=== PATIENT | male | born 1975 | race Caucasian/White ===

== ENCOUNTER 2021-01-01 12:09 | Emergency (ER) | payer MEDICAID, SELFPAY ==
[2021-01-01 12:20] VITALS: BP 170/104; PULSE 60; RESP 19; TEMP 36.7; O2SAT 98; BMI 42.5
--- NOTE | 2021-01-01 12:57 | HMH.EDUTC ---
[facility] [place] Clinical Impression: Exposure to COVID-19 virus, Upper respiratory infection, viral Disposition: Home, Self-Care Condition on Discharge: Good Instructions: DI for COVID-19 (Suspected or Confirmed ), How to Care for Someone with COVID-19, Preventing the Spread of Coronavirus Discharge Instructions Additional Instructions: No sign of a bacterial infection. Likely viral. Viruses can take 7-14 days to run their course. Nasal saline and bulb syringe or nose Bia to remove nasal drainage to help with nasal congestion. Hard to eat, drink, sleep with nasal congestion so important to keep this cleaned out. Monitor temp. Tylenol or Motrin as needed for pain or fever Encourage fluids, water, Gatorade, Powerade, Pedialyte if /toddler/child Warm salt water gargles Warm fluids Sore throat lozenges Sleep elevated Humidifier/vaporizer covid swab sent, self isolate until test results are known to be neg Follow-up immediately for new or worsening symptoms or no noticeable improvement over the next 48-72 hours. Referrals: Glory Stover [Primary Care Provider] - Forms: Work/School Release Time of Disposition: 13:00 Medical Decision Making - Miguel Inquiry Pt receiving controlled substance: No Vital Signs: 01/01/21 12:20 Temperature 98.0 F Temperature Source Oral Pulse Rate [Right Brachial] 60 Respiratory Rate 19 Blood Pressure [Right Arm] 170/104 H Blood Pressure Mean [Right Arm] 126 Blood Pressure Source [Right Arm] Automatic Cuff Blood Pressure Position [Right Arm] Sitting 02 Sat by Pulse Oximetry 98 Oxygen Delivery Method Room Air Orders (Tests/Meds): ORDERS Category Date Time Status Covid-19 Nasal PCR ([facility]) Routine Lab 01/01/21 12:17 Ordered [facility] [place] HPI - General Chief complaint: Urgent [facility] Stated complaint: covid test Time Seen by Provider: 01/01/21 12:57 Mode of Arrival: Ambulatory Source of Information: Patient Limitations: No Limitations Description of Symptoms (Recalled from Triage Doc. by RN): COVID TEST D/T EXPOSURE. C/O FEVER, COUGH AND RUNNY NOSE HEENT Symptoms (Recalled from RN notes): Yes Resp Symptoms (Recalled from RN notes): Yes Skin Symptoms (Recalled from RN notes): No MS Symptoms (Recalled from RN notes): No Functional Status (Recalled from RN notes): WNL - History of Present Illness Provider Complaint: 45 yr old male presents for cough,low grade fever and runny nose for 2 days. pt states he was exposed to someone with covid 3 days ago. - Related Data Allergies Allergy/AdvReac Type Severity Reaction Status Date / Time acetaminophen Allergy Verified 01/01/21 12:49 albuterol Allergy Verified 01/01/21 12:49 hydrocodone Allergy Verified 01/01/21 12:49 - Worker's Comp Is this a Worker's Comp case?: No H History - Hepatitis A Screen Drug use history?: No High risk sexual behaviors?: No History of sexually transmitted infection?: No Currently employed?: No Childcare worker?: No Do you have indoor plumbing?: Yes Do you have electricity?: Yes Attestation statement:: This patient has been screened for Hepatitis A risk factors. I have reviewed the patient's past medical history: Yes ROS Obtained: Yes Systems reviewed as appropriate & no additional complaints - Constitutional Constitutional: Reports system reviewed and no additional complaints, except as docu, Reports body ache, Reports chills, Reports fever(s) - Eyes Eyes: Reports system reviewed and no additional complaints, except as docu, Denies blurry vision - ENT Ears, Nose, Mouth, and Throat: Reports system reviewed and no additional complaints, except as docu, Reports nasal congestion - Cardiovascular Cardiovascular: Reports system reviewed and no additional complaints, except as docu, Denies chest pain - Respiratory Respiratory: Reports system reviewed and no additional complaints, except as docu, Denies change in phlegm color, Reports chest congestion, Reports cou
[2021-01-01 13:00] VITALS: BP 170/104; PULSE 60; RESP 19; TEMP 36.7; O2SAT 98
== END 2021-01-01 13:15 | disposition home or self-care (01) ==
PROVIDERS: Emergency Provider Nurse Practitioner Family; PCP Nurse Practitioner Family
DX: Z20.822 Contact with and (suspected) exposure to COVID-19 (principal); J06.9 Acute upper respiratory infection, unspecified; Z88.8 Allergy status to other drugs, medicaments and biological substances
CPT/HCPCS: 99202; G0463; U0003

== ENCOUNTER → 2022-11-14 11:00 | Outpatient (CLI) | payer MEDICAID, SELFPAY ==
[2022-11-14 18:05] LABS: Basophils # 0.1 K/mm3 (0-0.2); Basophils % 0.8 % (0.1-2.0); Eosinophils # 0.3 K/mm3 (0.0-0.4); Eosinophils % 3.8 % (0.1-12.0); Hematocrit 46.3 % (42.0-52.0); Hemoglobin 14.6 g/dL (14.1-18.0); Lymphocytes % 26.8 % (10-50); Mean Corpuscular HGB Conc 31.6 g/dL (31.8-35.4); Mean Corpuscular Hemoglobin 32.1 pg (27.0-31.2); Mean Corpuscular Volume 101.7 fl (80-94); Mean Platelet Volume 9.1 fl (7.4-10.4); Monocytes # 0.6 K/mm3 (0.1-1.0); Monocytes % 8.2 % (1.7-9.3); Neutrophils # 4.5 K/mm3 (1.8-7.8); Neutrophils % 60.5 % (37.0-80.0); Platelet Count 215 K/mm3 (142-424); Red Blood Count 4.55 M/mm3 (4.60-6.20); Red Cell Distribution Width 12.9 % (11.5-17.5); White Blood Count 7.4 K/mm3 (4.8-10.8)
[2022-11-14 18:09] LABS: Alanine Aminotransferase 22 U/L (12-78); Albumin Level 4.1 g/dl (3.5-5.0); Albumin/Globulin Ratio 1.4 (1.1-1.8); Alkaline Phosphatase 106 U/L (38-126); Anion Gap 11.2 mEq/L (5-15); Aspartate Amino Transferase 25 U/L (17-59); Bilirubin,Total 0.6 mg/dl (0.2-1.3); Blood Urea Nitrogen 13 mg/dl (9-20); Calcium 9.7 mg/dl (8.4-10.2); Carbon Dioxide 28 mmol/L (22.0-30.0); Chloride 102 mmol/L (98-107); Chol/HDL Ratio 3.2 (1-3.5); Cholesterol 145 mg/dl (140-200); Estimated Glomerular Filt Rate 121 ml/min (>60); GFR (African American) 146 ML/MIN (>60); Glucose 174 mg/dl (74-100); HDL Cholesterol 45 mg/dl (40-60); Potassium 4.2 mmoL/L (3.5-5.1); Sodium 137 mmol/L (136-145); Total Protein,Serum 7.1 g/dl (6.3-8.2); Triglycerides 206 mg/dl (30-150); VLDL Cholesterol 41 mg/dL (0-40)
[2022-11-14 19:21] LABS: Microalbumin/Creatinine Ratio 16.4
[2022-11-14 19:26] LABS: Creatinine,Urine Random 100 mg/dL (Not Estab.)
== END ==
PROVIDERS: PCP Family Medicine; Visit Provider Family Medicine
DX: E11.9 Type 2 diabetes mellitus without complications (principal); I10 Essential (primary) hypertension; E78.5 Hyperlipidemia, unspecified; Z79.84 Long term (current) use of oral hypoglycemic drugs
CPT/HCPCS: 80053; 80061; 82043; 82570; 83036; 85025

== ENCOUNTER → 2023-08-02 23:53 | Outpatient (CLI) | payer MEDICAID, SELFPAY ==
[2023-08-02 17:20] LABS: Creatinine,Urine Random 104 mg/dL (Not Estab.); Microalbumin/Creatinine Ratio 112.5
[2023-08-02 17:22] LABS: Basophils % 0.5 % (0.1-2.0); Eosinophils # 0.2 K/mm3 (0.0-0.4); Eosinophils % 4.4 % (0.1-12.0); Hematocrit 49.2 % (42.0-52.0); Hemoglobin 15.1 g/dL (14.1-18.0); Lymphocytes # 1.6 K/mm3 (0.7-4.5); Lymphocytes % 29.3 % (10-50); Mean Corpuscular HGB Conc 30.8 g/dL (31.8-35.4); Mean Corpuscular Hemoglobin 30.4 pg (27.0-31.2); Mean Corpuscular Volume 98.8 fl (80-94); Mean Platelet Volume 8.6 fl (7.4-10.4); Monocytes # 0.3 K/mm3 (0.1-1.0); Monocytes % 5.8 % (1.7-9.3); Neutrophils # 3.2 K/mm3 (1.8-7.8); Neutrophils % 59.9 % (37.0-80.0); Platelet Count 182 K/mm3 (142-424); Red Blood Count 4.98 M/mm3 (4.60-6.20); Red Cell Distribution Width 12.8 % (11.5-17.5); White Blood Count 5.4 K/mm3 (4.8-10.8)
[2023-08-02 17:27] LABS: Chloride 109 mmol/L (98-107); Potassium 4.5 mmoL/L (3.5-5.1); Sodium 142 mmol/L (136-145)
[2023-08-02 17:30] LABS: Alanine Aminotransferase 25 U/L (12-78); Albumin Level 3.5 g/dl (3.5-5.0); Alkaline Phosphatase 112 U/L (38-126); Anion Gap 15.5 mEq/L (5-15); Aspartate Amino Transferase 26 U/L (17-59); Bilirubin,Total 0.3 mg/dl (0.2-1.3); Blood Urea Nitrogen 9 mg/dl (9-20); Calcium 8.9 mg/dl (8.4-10.2); Carbon Dioxide 22 mmol/L (22.0-30.0); Chol/HDL Ratio 3.9 (1-3.5); Cholesterol 148 mg/dl (140-200); Estimated Glomerular Filt Rate 144 ml/min (>60); GFR (African American) 174 ML/MIN (>60); Globulin 3.4 g/dL (1.3-3.2); Glucose 215 mg/dl (74-100); HDL Cholesterol 38 mg/dl (40-60); Total Protein,Serum 6.9 g/dl (6.3-8.2); Triglycerides 201 mg/dl (30-150); VLDL Cholesterol 40 mg/dL (0-40)
[2023-08-02 17:43] LABS: Direct LDL Cholesterol 71.59 mg/dL (100-129)
[2023-08-02 17:48] LABS: Triiodothryronine (T3) Uptake 40 % (23.5-40.5)
[2023-08-02 17:49] LABS: T4 (Thyroxine) 6.7 ug/dl (5.53-11.0)
[2023-08-02 17:50] LABS: Free T4 (Free Thyroxine) 1.03 ng/dl (0.78-2.19)
[2023-08-02 18:03] LABS: Thyroid Stimulating Hormone 1.03 uIU/mL (0.465-4.68)
[2023-08-02 19:49] LABS: Hemoglobin A1C 10.3 % (4.0-6.0)
== END ==
PROVIDERS: PCP Nurse Practitioner Family; Visit Provider Nurse Practitioner Family
DX: E11.9 Type 2 diabetes mellitus without complications (principal); E78.5 Hyperlipidemia, unspecified; I10 Essential (primary) hypertension; F41.9 Anxiety disorder, unspecified
CPT/HCPCS: 80053; 80061; 82043; 82570; 83036; 84436; 84439; 84443; 84479; 85025

== ENCOUNTER 2023-10-01 21:49 | Emergency (ER) | payer MEDICAID, SELFPAY ==
--- NOTE | 2023-10-01 21:51 | ECG_ITS ---
APPROVED REPORT Exam: Resting ECG HR:86 bpm ECG Measurements Heart Rate 86 AXES NJ 222 P 40 QRSd 116 QRS -36 QT 391 T 64 QTc 434 Conclusion SINUS RHYTHM WITH FIRST DEGREE AV BLOCK LEFT AXIS DEVIATION [QRS AXIS < -30] LOW QRS VOLTAGE IN PRECORDIAL LEADS [QRS DEFLECTION < 1.0 mV IN CHEST LEADS] PATTERN CONSISTENT WITH PULMONARY DISEASE MODERATE INTRAVENTRICULAR CONDUCTION DELAY [110+ ms QRS DURATION] ABNORMAL ECG UNCONFIRMED REPORT Electronically signed by : Ricardo Mayen MD 10/02/2023 21:12:36
[2023-10-01 21:56] VITALS: BP 124/80; PULSE 94; RESP 18; TEMP 36.8; O2SAT 96; BMI 40.6
--- NOTE | 2023-10-01 22:01 | XR_ITS ---
PROCEDURE INFORMATION: Exam: XR Chest Exam date and time: 10/01/2023 9:59 PM Age: 47 years old Clinical indication: Pain; Left-sided; Patient HX: HX HTN; Additional info: Chest pain TECHNIQUE: Imaging protocol: Radiologic exam of the chest. Views: 2 views. COMPARISON: No relevant prior studies available. FINDINGS: Lungs: Unremarkable. No consolidation. Pleural spaces: Unremarkable. No pleural effusion. No pneumothorax. Heart/Mediastinum: Unremarkable. No cardiomegaly. Bones/joints: Unremarkable. IMPRESSION: No acute pulmonary findings.
--- NOTE | 2023-10-01 22:03 | HMH.EDGENADL ---
Discharge Plan Disposition Patient Disposition: Home, Self-Care Condition: Good Prescriptions Prescriptions: No Action Victoza 3-Justus 0.6 mg/0.1 mL (18 mg/3 mL) pen injector 0.6 mg SQ DAILY 30 Days Qty: 3 0RF metformin 500 mg tablet extended release 24 hr 1,000 mg PO BID 90 Days Qty: 360 2RF Rx Instructions: Start at 500mg daily and increase every week until 1000mg BID as long as tolerating medicine aspirin [Adult Aspirin Regimen] 81 mg tablet,delayed release (DR/EC) 81 mg PO DAILY 30 Days Qty: 30 2RF rosuvastatin 10 mg tablet 10 mg PO HS Qty: 30 2RF Referrals Follow up/Referrals: Nagi Faulkner MD [Staff Physician] - See instructions Provider,MD Khalida [Primary Care Provider] - See instructions Activity Restrictions/Add. Instructions Additional Instructions/Restrictions: You were evaluated in the emergency department today. Please follow-up outpatient with cardiology as well as your primary care provider. Continue taking your medications at home as prescribed. Return to the emergency department for any new or worsening symptoms. Clinical Impressions Clinical Impression: Chest pain Qualifiers: Chest pain type: unspecified Qualified Code(s): R07.9 - Chest pain, unspecified Instructions Patient Instructions: DI for Chest Pain Discharge ED Provider: Margarita Rosario General Adult HPI General Chief complaint: Chest Pain Stated complaint: CP Time Seen by Provider: 10/01/23 21:50 Mode of Arrival: EMS Source of Information: Patient and EMS Limitations: No Limitations Description of Symptoms (Recalled from ER Triage Doc. by RN): Pt arrives via EMS to ED. Pt cheif complaint L sided chest pain. Pt denies chest pain at this time. In route pt was given 324mg aspirin po and nitro 0.4 mg SL. Pts chest pain was initially 2/10 per EMS. Pt states pain chest pain has been going on for 2 weeks now, no radiation or other symptoms. Pt describes pain being worse with exertion and better with rest and aspirin , per pt. Pt states he is a diabetic, smokes pack cigs per day, and approx 12 pack beer per day. History of Present Illness HPI narrative: This patient is a 47-year-old male with a history of type 2 diabetes, hypertension, hyperlipidemia, asthma, chronic bilateral leg pain, and history of DVT on medical record review presenting to the emergency department for evaluation with concern for intermittent left-sided chest pain. He states that it has been going on for approximately 2 weeks now. Nothing seems to bring it on, but aspirin makes it go away. It is not associated with any other symptoms, such as diaphoresis, shortness of breath, lightheadedness, abdominal pain, nausea, vomiting, changes in bowel movements, rashes, or swelling. Of note, patient does drink approximately 12 pack of beers per day, and he has had 10 beers today. He also is a daily smoker. He notes that what prompted him to come in today is that his girlfriend heard him complain of chest pain and called EMS. He states that she was worried about it, but he was not. EMS gave him aspirin as well as sublingual nitroglycerin, and his pain resolved today. He is currently asymptomatic. He reports compliance with his home medications. Related Data Previous Rx's Medication Instructions Recorded liraglutide 0.6 mg/0.1 mL (18 mg/3 0.6 mg (0.1 mL) SQ DAILY Diabetes 11/01/22 mL) subcutaneous pen injector 30 days #3 mL (Victoza 3-Justus) metformin 500 mg tablet,extended 1,000 mg PO BID 3 months #360 tabs 08/05/23 release 24 hr aspirin 81 mg tablet,delayed 81 mg PO DAILY 30 days #30 tabs 08/13/23 release (Adult Aspirin Regimen) rosuvastatin 10 mg tablet 10 mg PO HS #30 tabs 09/24/23 Allergies Allergy/AdvReac Type Severity Reaction Status Date / Time hydrocodone Allergy Verified 08/02/23 09:27 [facility] Disclaimer: The information contained in this section may have been updated after the patient was seen, as this informatio
[2023-10-01 22:13] LABS: Basophils % 0.4 % (0.1-2.0); Eosinophils # 0.3 K/mm3 (0.0-0.4); Eosinophils % 2.9 % (0.1-12.0); Hematocrit 38.9 % (42.0-52.0); Hemoglobin 13.5 g/dL (14.1-18.0); Lymphocytes # 3.8 K/mm3 (0.7-4.5); Lymphocytes % 41.9 % (10-50); Mean Corpuscular HGB Conc 34.7 g/dL (31.8-35.4); Mean Corpuscular Hemoglobin 32.9 pg (27.0-31.2); Mean Corpuscular Volume 94.7 fl (80-94); Mean Platelet Volume 8.3 fl (7.4-10.4); Monocytes # 0.6 K/mm3 (0.1-1.0); Monocytes % 6.1 % (1.7-9.3); Neutrophils # 4.4 K/mm3 (1.8-7.8); Neutrophils % 48.7 % (37.0-80.0); Platelet Count 151 K/mm3 (142-424); Red Cell Distribution Width 13.5 % (11.5-17.5)
[2023-10-01 22:19] LABS: Alanine Aminotransferase 33 U/L (12-78); Albumin Level 3.8 g/dl (3.5-5.0); Alkaline Phosphatase 81 U/L (38-126); Anion Gap 18.4 mEq/L (5-15); Aspartate Amino Transferase 45 U/L (17-59); Bilirubin,Total 0.6 mg/dl (0.2-1.3); Blood Urea Nitrogen 5 mg/dl (9-20); Calcium 8.5 mg/dl (8.4-10.2); Carbon Dioxide 20 mmol/L (22.0-30.0); Chloride 100 mmol/L (98-107); Creatinine Clearance Estimated 290 mL/min (50-200); Estimated Glomerular Filt Rate 144 ml/min (>60); GFR (African American) 174 ML/MIN (>60); Globulin 3.7 g/dL (1.3-3.2); Glucose 287 mg/dl (74-100); Lipase 103 U/L (23-300); Potassium 3.4 mmoL/L (3.5-5.1); Sodium 135 mmol/L (136-145); Total Protein,Serum 7.5 g/dl (6.3-8.2)
[2023-10-01 22:24] LABS: D-Dimer 0.81 ug/mL (0.0-0.5)
[2023-10-01 22:36] LABS: Troponin I < 0.01 ng/ml (0.00-0.034)
[2023-10-01 22:50] VITALS: BP 120/78; PULSE 95; RESP 18; TEMP 36.6; O2SAT 98
== END 2023-10-01 22:51 | disposition home or self-care (01) ==
PROVIDERS: Emergency Provider Emergency Medicine
DX: R07.9 Chest pain, unspecified (principal); F10.929 Alcohol use, unspecified with intoxication, unspecified; I45.9 Conduction disorder, unspecified; E11.65 Type 2 diabetes mellitus with hyperglycemia; I10 Essential (primary) hypertension; E78.5 Hyperlipidemia, unspecified; J45.909 Unspecified asthma, uncomplicated; F17.210 Nicotine dependence, cigarettes, uncomplicated; Z79.84 Long term (current) use of oral hypoglycemic drugs; Z79.85 Long-term (current) use of injectable non-insulin antidiabetic drugs
CPT/HCPCS: 71046; 80053; 83690; 84484; 85025; 85378; 93005; 99284

== ENCOUNTER 2024-03-25 18:00 | Outpatient (CLI) | payer MEDICAID, SELFPAY ==
[2024-03-25 16:42] LABS: Basophils % 0.6 % (0.1-2.0); Eosinophils # 0.3 K/mm3 (0.0-0.4); Eosinophils % 5.3 % (0.1-12.0); Hematocrit 45.8 % (42.0-52.0); Hemoglobin 14.5 g/dL (14.1-18.0); Lymphocytes % 38.3 % (10-50); Mean Corpuscular HGB Conc 31.7 g/dL (31.8-35.4); Mean Corpuscular Hemoglobin 32.6 pg (27.0-31.2); Mean Platelet Volume 9.3 fl (7.4-10.4); Monocytes # 0.4 K/mm3 (0.1-1.0); Monocytes % 7.7 % (1.7-9.3); Neutrophils # 2.5 K/mm3 (1.8-7.8); Neutrophils % 48.1 % (37.0-80.0); Platelet Count 168 K/mm3 (142-424); Red Blood Count 4.44 M/mm3 (4.60-6.20); Red Cell Distribution Width 13.2 % (11.5-17.5); White Blood Count 5.2 K/mm3 (4.8-10.8)
[2024-03-25 16:47] LABS: Alanine Aminotransferase 40 U/L (12-78); Albumin/Globulin Ratio 1.3 (1.1-1.8); Alkaline Phosphatase 73 U/L (38-126); Anion Gap 12.9 mEq/L (5-15); Aspartate Amino Transferase 40 U/L (17-59); Bilirubin,Total 0.4 mg/dl (0.2-1.3); Blood Urea Nitrogen 11 mg/dl (9-20); Calcium 9.1 mg/dl (8.4-10.2); Carbon Dioxide 27 mmol/L (22.0-30.0); Chloride 107 mmol/L (98-107); Cholesterol 180 mg/dl (140-200); Estimated Glomerular Filt Rate 143 ml/min (>60); GFR (African American) 173 ML/MIN (>60); Globulin 3.1 g/dL (1.3-3.2); Glucose 246 mg/dl (74-100); HDL Cholesterol 60 mg/dl (40-60); Potassium 4.9 mmoL/L (3.5-5.1); Sodium 142 mmol/L (136-145); Total Protein,Serum 7.1 g/dl (6.3-8.2); Triglycerides 298 mg/dl (30-150); VLDL Cholesterol 60 mg/dL (0-40)
[2024-03-25 16:58] LABS: Direct LDL Cholesterol 90.32 mg/dL (100-129)
[2024-03-25 21:50] LABS: Hemoglobin A1C 9.7 % (4.0-6.0)
== END 2024-03-25 23:59 | disposition home or self-care (01) ==
LOC: LAB.DROPOF 03-26 07:41
PROVIDERS: PCP Nurse Practitioner Family; Visit Provider Nurse Practitioner Family
DX: E11.9 Type 2 diabetes mellitus without complications (principal); Z79.84 Long term (current) use of oral hypoglycemic drugs; Z79.899 Other long term (current) drug therapy
CPT/HCPCS: 80053; 80061; 83036; 84443; 85025

== ENCOUNTER 2024-06-26 08:08 | Outpatient (CLI) | payer MEDICAID, SELFPAY ==
[2024-06-25 16:40] LABS: Basophils # 0.1 K/mm3 (0-0.2); Eosinophils # 0.3 K/mm3 (0.0-0.4); Eosinophils % 4.7 % (0.1-12.0); Hematocrit 43.5 % (42.0-52.0); Hemoglobin 14.3 g/dL (14.1-18.0); Lymphocytes # 1.8 K/mm3 (0.7-4.5); Lymphocytes % 31.3 % (10-50); Mean Corpuscular HGB Conc 32.9 g/dL (31.8-35.4); Mean Corpuscular Volume 97.1 fl (80-94); Mean Platelet Volume 9.3 fl (7.4-10.4); Monocytes # 0.4 K/mm3 (0.1-1.0); Monocytes % 6.4 % (1.7-9.3); Neutrophils # 3.2 K/mm3 (1.8-7.8); Neutrophils % 56.6 % (37.0-80.0); Platelet Count 181 K/mm3 (142-424); Red Blood Count 4.47 M/mm3 (4.60-6.20); Red Cell Distribution Width 12.8 % (11.5-17.5); White Blood Count 5.7 K/mm3 (4.8-10.8)
[2024-06-25 16:47] LABS: Alanine Aminotransferase 32 U/L (12-78); Albumin Level 3.9 g/dl (3.5-5.0); Albumin/Globulin Ratio 1.2 (1.1-1.8); Alkaline Phosphatase 67 U/L (38-126); Anion Gap 12.2 mEq/L (5-15); Aspartate Amino Transferase 26 U/L (17-59); Bilirubin,Total 0.4 mg/dl (0.2-1.3); Blood Urea Nitrogen 10 mg/dl (9-20); Calcium 8.9 mg/dl (8.4-10.2); Carbon Dioxide 21 mmol/L (22.0-30.0); Chloride 111 mmol/L (98-107); Estimated Glomerular Filt Rate 143 ml/min (>60); GFR (African American) 173 ML/MIN (>60); Globulin 3.3 g/dL (1.3-3.2); Glucose 237 mg/dl (74-100); Potassium 4.2 mmoL/L (3.5-5.1); Sodium 140 mmol/L (136-145); Total Protein,Serum 7.2 g/dl (6.3-8.2)
[2024-06-25 21:20] LABS: Microalbumin/Creatinine Ratio 50.5
[2024-06-25 21:24] LABS: Creatinine,Urine Random 80 mg/dL (Not Estab.)
[2024-06-25 22:09] LABS: Hemoglobin A1C 9.5 % (4.0-6.0)
== END 2024-06-26 23:59 | disposition home or self-care (01) ==
LOC: LAB.DROPOF 08:08
PROVIDERS: PCP Nurse Practitioner Family; Visit Provider Nurse Practitioner Family
DX: E11.9 Type 2 diabetes mellitus without complications (principal); Z79.84 Long term (current) use of oral hypoglycemic drugs; Z79.85 Long-term (current) use of injectable non-insulin antidiabetic drugs
CPT/HCPCS: 80053; 82043; 82570; 83036; 85025

== ENCOUNTER 2025-05-28 21:43 | Observation (INO) | payer BC, SELFPAY ==
--- NOTE | 2025-05-28 21:28 | ECG_ITS ---
APPROVED REPORT Exam: Resting ECG HR:98 bpm ECG Measurements Heart Rate 98 AXES MS 232 P 39 QRSd 117 QRS -2 QT 361 T 56 QTc 416 Conclusion SINUS RHYTHM WITH FIRST DEGREE AV BLOCK LOW QRS VOLTAGE IN PRECORDIAL LEADS [QRS DEFLECTION < 1.0 mV IN CHEST LEADS] INCOMPLETE RIGHT BUNDLE BRANCH BLOCK [90+ ms QRS DURATION, TERMINAL R IN V1/V2, 40+ ms S IN I/aVL/V4/V5/V6] MARKED ST ELEVATION, CONSIDER INFERIOR INJURY [MARKED ST ELEVATION W/O NORMALLY INFLECTED T-WAVE IN II/aVF] Diffuse nonspecific ST changes, right bundle branch block Electronically signed by : ANDER DALAL, 06/01/2025 08:44:46
--- NOTE | 2025-05-28 21:42 | CT_ITS ---
PROCEDURE INFORMATION: Exam: CTA Chest With Contrast Exam date and time: 05/28/2025 10:13 PM Age: 49 years old Clinical indication: Pain; Shortness of breath; Left-sided; Additional info: Tachycardic, short of breath. States left sided cp that started tonight TECHNIQUE: Imaging protocol: Computed tomographic angiography of the chest with contrast. Exam focused on the arteries. 3D rendering (Not supervised by radiologist): MIP and/or 3D reconstructed images were created by the technologist. Radiation optimization: All CT scans at this facility use at least one of these dose optimization techniques: automated exposure control; mA and/or kV adjustment per patient size (includes targeted exams where dose is matched to clinical indication); or iterative reconstruction. Contrast material: ISOVUE 370; Contrast volume: 70 ml; Contrast route: INTRAVENOUS (IV); COMPARISON: CR XR CHEST 2V 10/01/2023 9:59 PM FINDINGS: Limitations: Motion artifact degrades image quality and limits the sensitivity of this examination. Calcified left hilar lymph nodes. Pulmonary arteries: Normal. No pulmonary emboli. Aorta: Motion limits assessment of the ascending aorta. The aorta is otherwise unremarkable. Lungs: 6 mm nodule in the anterior right middle lobe. 5 mm subpleural nodule in the superior right middle lobe. Pleural spaces: Unremarkable. No pneumothorax. No pleural effusion. Heart: Unremarkable. No cardiomegaly. No pericardial effusion. Lymph nodes: Unremarkable. No enlarged lymph nodes. Bones/joints: Degenerative changes in the spine Soft tissues: Unremarkable. IMPRESSION: 1. No pulmonary embolus. 2. Evidence of prior granulomatous exposure. 3. 6 mm nodule in the anterior right middle lobe. 5 mm subpleural nodule in the superior right middle lobe. As per Fleischner Society guidelines for follow-up and management of multiple pulmonary nodules measuring less than 6 mm: 4. For patients at low risk, no specific followup is recommended. 5. For patients at high risk, consider followup CT in 12 months.
--- NOTE | 2025-05-28 21:42 | PC.NURSE ---
patcher helper stemi doctor has been paged at this time.
[2025-05-28 21:46] VITALS: BP 123/83; PULSE 104; RESP 22; TEMP 36.9; O2SAT 98; BMI 36.2
--- OUTSIDE RECORDS SUMMARY | 2025-05-28 21:48 | XMS_ITS | Data Portability ---
Author Organization [facility] Address [address] [place] [address] Assessment No assessment recorded. Plan of Treatment Reminders Order Date Submit Date Provider Last Modified By Organization Details Last Modified Time Details Appointments None recorded. Lab urinalysis , dipstick [address], [address], 4 16:28:58 HbA1c (hemoglobi n A1c), blood [address], [address], 4 16:28:59 Referral None recorded. Procedures None recorded. Surgeries None recorded. Imaging None recorded. Medication Orders None recorded. Patient TargetsNo targets recorded. Patient InstructionsNo instructions recorded. Reason for Referral None Reported. Results Created Date Observation Date Name Description Value Unit Range Abnormal Flag Note LastModifiedBy Organization Detail LastModifiedTime 06/29/2006/29/2024 urina lysis , dipst ick Leukocytes Negati ve Not Available [address], [address], 06/29/2024 12:46:55 06/29/20 24 06/29/2024 urina lysis , dipst ick Nitrite negati ve Not Available [address], [address], 06/29/2024 12:46:55 06/29/2006/29/2024 urina lysis , dipst ick Urobilinogen .2 Not Available [address], [address], 06/29/2024 12:46:55 06/29/20 24 06/29/2024 urina lysis , dipst ick Protein 30 Not Available [address], [address], 06/29/2024 12:46:55 06/29/20 24 06/29/2024 urina lysis , dipst ick pH 6.0 Not Available [address], [address], 06/29/2024 12:46:55 06/29/20 24 06/29/2024 urina lysis , dipst ick Blood Non-He molyze d: Trace Not Available [address], [address], 06/29/2024 12:46:55 06/29/20 24 06/29/2024 urina lysis , dipst ick Specific [place] 1.030 Not Available [address], [address], 06/29/2024 12:46:55 06/29/20 24 06/29/2024 urina lysis , dipst ick Ketone Negati ve Not Available [address], [address], 06/29/2024 12:46:55 06/29/20 24 06/29/2024 urina lysis , dipst ick Bilirubin Negati ve Not Available [address], [address], 06/29/2024 12:46:55 06/29/20 24 06/29/2024 urina lysis , dipst ick Glucose 500 Not Available [address], [address], 06/29/2024 12:46:55 06/29/20 24 06/29/2024 urina lysis , dipst ick Appearance Clear Not Available [address], [address], 06/29/2024 12:46:55 06/29/20 24 06/29/2024 urina lysis , dipst ick Color Yellow Not Available [address], [address], 06/29/2024 12:46:55 06/29/20 24 06/29/2024 HbA1c (hemo globi n A1c), blood HbA1c 10.4 Not Available [address], [address], 06/29/2024 12:46:56 Result Notes None recorded. 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 Medical Equipment None Reported. Medications Name Sig Start Date Stop Date Status Note LastModified by Organization Details LastModified Time losartan 50 mg tablet take 1 tablet (50 mg) by oral route once daily 06/29 completed Not Available Not Available Not Available atorvastati n 40 mg tablet take 1 tablet (40 mg) by oral route once daily at bedtime 06/29 completed Not Available Not Available Not Available metformin 500 mg tablet take 2 tablet (500 mg) by oral route 2 times per day with morning andevenin g meals 01/01 completed Not Available Not Available Not Available lisinopril 20 mg-hydrochl orothiazide 12.5 mg tablet take 1 tablet by oral route once daily 01/26 completed Not Available Not Available Not Available ibuprofen 800 mg tablet TAKE 1 TABLET BY MOUTH TWICE DAILY WITH FOOD FOR PAIN 2020 active Not Available Not Available Not Avai lable benzonatate 200 mg capsule 06/29 completed Not Available Not Available Not Available glipizide 10 mg tablet take 1 tablet (10 mg) by oral route 2 times per day before meals 01/26 completed Not Available Not Available Not Available bacitracin 500 unit/gram topical ointment 06/29 completed Not Available Not Available Not Available aspirin 81 mg tablet,kaylin yed release take 1 tablet (81 mg) by oral route once daily active Not Available Not Available No t Available cephalexin 500 mg capsule 06/29 completed Not Available Not Available Not Available metformin 1,000 mg tablet take 1 tablet (1,000 mg) by oral route 2 times per day with morning and evening meals 2019 active Not Available Not Available Not Avai lable metformin ER 500 mg tablet,exte nded release 24 hr active Not Available Not Available Not Available rosuvastati n 10 mg tablet active Not Available Not Available Not Available Pen Needle 31 gauge x 1/4 Use daily with Victoza 2020 active Not Available Not Available Not Avai lable ProAir HFA 90 mcg/actuati on aerosol inhaler inhale 1 - 2 puffs (90 - 180 mcg) by inhalatio n route every 4 hours as needed 2020 active Not Available Not Available Not Avai lable GaviLyte-G 236 gram-22.74 gram-6.74 gram-5.86 gram oral solution 06/29 completed Not Available Not Available Not Available Victoza 3-Justus 0.6 mg/0.1 mL (18 mg/3 mL) subcutaneou s pen injector INJECT 1.8 MG BY SUBCUTANE OUS ROUTE ONCE DAILY active Not Available Not Available No t Available Jardiance 25 mg tablet take 1 tablet (25 mg) by oral route once daily in the morning 01/27 completed Not Available Not Available Not Available Steglatro 15 mg tablet take 1 tablet (15 mg) by oral route once daily in the morning 06/29 completed Not Available Not Available Not Available Vitals Date Recorded Body height Body mass index (BMI) Body weight Body temperature Heart rate Oxygen saturation Oxygen saturation in Arterial blood by Pulse oximetry Systolic And Diastolic Provider Name and Address Organization Details Last Updated DateTime 4 180.34 cm 39.4 kg/m2 263504. 49 g 98.4 [degF] 97 /min 94 % 94 % 138/83 mm[Hg] TIFFANY BARRON [facility] [employer] 4 16:13:04 Social History Question Answer Notes LastModified by Organizat ion Details LastModified Time Tobacco Smoking Status Current Every Day Smoker SocialHistor yQuestion: 'Tobacco/Alc ohol/Supplem ents'; SocialHistor yResponse: 'Current Everyday Smoker'; Not Available [facility] 07/31/2022 22:56:29 Is Your Home Air Conditioned? Yes Information not available 06/29/2024 What Was The Date Of Your Most Recent Tobacco Screening? 06/29/2024 Information not available 06/29/2024 What Is Your Current Pack Years? 20-29packye ars Information not available 06/29/2024 Do You Have Smoke And Carbon Monoxide Detectors In Your Home? Yes Information not available 06/29/2024 Are You Passively Exposed To Smoke? Yes Information not available 06/29/2024 Are There Any Smokers In Your House? Yes Information not available 06/29/2024 How Much Tobacco Do You Smoke? 1 PPD Information not available 06/29/2024 Sex: Male Functional Status Question Answer Note LastModified by Organizat ion Details LastModified Time Do you use any illicit or recreational drugs? No Information not available 06/29/2024 Do you or have you ever used any other forms of tobacco or nicotine? Yes Information not available 06/29/2024 What is your level of alcohol consumption? None Information not available 06/29/2024 Do you or have you ever used smokeless tobacco? Current snuff user SocialHistory Question: 'Tobacco/Alco hol/Supplemen ts'; SocialHistory Response: 'Current smokeless tobacco user (eg, chew, snuff) (PV)1'; [email or web address] Information not available 07/31/2022 Mental Status None recorded. Family History Relationship Description Onset Age of this Age Resolved Age Notes LastModified by Organization Details LastModified Time Unspecified Relation Family history of diabetes mellitus type 2 Relati ve: ''; [email or web address] Not available 07/31/2022 23:01:42 Unspecified Relation Family history of drug abuse Relati ve: ''; [email or web address] Not available 07/31/2022 23:01:42 Unspecified Relation Family history of alcoholism Relati ve: ''; [email or web address] Not available 07/31/2022 23:01:42 Notes:*Procedure Description : Documented family medical history in mother*Relative: Mother *Procedure Description: Documented family medical history in brother*Relative: Brother Medical History Condition Response Allergies (Food, seasonal, environmental ) Y COPD Y Obesity Y Diabetes Y Past Encounters Encounter ID Performer Location Encounter Start Date Encounter Closed Date Diagnosis/Indication Diagnosis SNOMED-CT Code Diagnosis ICD10 Code Diagnosis Note [id number] Glory Stover APRN [address] [address] 06/29/2024 15:43:40 06/29/2024 16:29:39 Firm Administrator license medical examination [id number] Z02.4 Failed due to A1c 10.4 today. Also has glucose and protein in his urine. Federal guidelines for diabetic drivers reviewed with pt today. He was encouraged to return to his PCP to work on improving Diabetic control. Body mass index 30+ - obesity 259755597 Z68.39 Tobacco de pendence caused by cigarettes 1347707991 4362849 F17.210 Health Concerns Section Related Observation LastModified by Organization Detai ls LastModified Time None Recorded Concern Status LastModified by Organization Details LastModified Time None Recorded Advance Directives Directive None Recorded Payers Insurance Date Sequence Insurance Name Policy Number Policy Ivey Covered Member ID Ivey Member ID Guarantor Name 06/29/2024 [id number] Richards 1 1 Preet Richards 06/23/2024 1 *SELF PAY* Lawrence Richards Notes Date Note Type Note Provider Name and Address Organization Details Recorded Time 06/29/2024 text/html 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 He has DM2, HTN, and COPD. Previous records from PCP reviewed. Glory Stover APRN [address] [place], [address], [facility] [employer] [facility] 06/29/2024 17:42:54
--- NOTE | 2025-05-28 21:49 | HMH.EDCP ---
Discharge Plan Disposition Patient Disposition: Admitted Condition: Fair Clinical Impressions Clinical Impression: Chest pain Discharge ED Provider: Rasheed Thomason HPI General Chief Complaint: Chest Pain Stated Complaint: chest pain Time Seen by Provider: 05/28/25 21:45 History of Present Illness HPI narrative: Preet Richards is a 49-year-old male with a past medical history of hypertension, diabetes (insulin-dependent), high cholesterol, tobacco use who presents to the emergency department for sudden onset left-sided chest pain and shortness of breath. Patient states that 2 hours ago, he had sudden sharp left-sided chest pain with associated shortness of breath. He does note that the pain is worse with shortness of breath. He reports that he has a history of heart attack in the past. Related Data Home Medications ?Medication ?Instructions ?Recorded ?Confirmed lisinopril 5 mg tablet 5 mg PO DAILY 05/29/25 05/29/25 sildenafil 100 mg tablet (Viagra) 100 mg PO DAILYP PRN sexual 05/29/25 05/29/25 activity Previous Rx's ?Medication ?Instructions ?Recorded blood sugar diagnostic (Blood #100 ea 10/27/24 Glucose Test strips) blood-glucose meter (Blood Glucose #1 ea 10/27/24 Monitoring kit) lancets 26 gauge (Easy Touch #100 ea 10/27/24 Lancets) metformin 500 mg tablet,extended 1,000 mg (2 x 500 mg) PO BID 3 10/27/24 release 24 hr months #120 tabs blood-glucose,roller structural mill,cont #1 ea 02/05/25 (Dexcom G6 Meter Reader) albuterol sulfate 90 mcg/actuation 1 puff inhalation QID #6.7 grams 02/12/25 aerosol inhaler pen needle, diabetic 31 gauge x #100 ea 02/12/25 1/4 (Easy Comfort Pen [place]) aspirin 81 mg tablet,delayed 81 mg PO DAILY 90 days #90 tabs 03/08/25 release (Adult Aspirin Regimen) blood-glucose sensor (Dexcom G6 #3 ea 04/27/25 Sensor device) blood-glucose transmitter (Dexcom #1 ea 04/27/25 G6 Transmitter device) insulin glargine 100 unit/mL (3 50 unit (0.5 mL) SQ DAILY #15 mL 05/29/25 mL) subcutaneous pen (Lantus Solostar U-100 Insulin) rosuvastatin 20 mg tablet 20 mg PO DAILY #30 tabs 05/29/25 Allergies Allergy/AdvReac Type Severity Reaction Status Date / Time hydrocodone AdvReac Abdominal Verified 05/29/25 11:16 Pain lisinopril AdvReac Nausea Verified 05/29/25 11:16 PFSH [facility], [facility] Disclaimer: The information contained in this section may have been updated after the patient was seen, as this information can be updated by other users. Medical History Hypertension Hyperlipidemia Depression Anxiety Asthma Diabetes mellitus Surgical History H/O vasectomy Family History Mother Diabetes Father Coronary artery disease Social History Smoking Status: Current every day smoker second hand exposure: Yes alcohol intake: current alcohol intake frequency: a few times a week counseling given: Yes counseling provided: provider counseling substance use type: denies use current occupational status: employed Travel in the last 8 weeks?: None household members: family housing: house Have you lived/traveled outside US in past 30 days?: No Contact w/someone who lives/traveled outside US past 30 days?: No Exposure to someone with infectious disease in past 14 days?: No Do you have a fever (greater than 100.4 F or 38 C)?: No Have you tested positive for COVID-19?: No Exposed to someone with COVID-19 in past 14 days?: No Do you have a sore throat?: No Do you have a cough?: No Do you have any weakness?: No Do you have any diarrhea?: No Are you experiencing any unusual bleeding?: No Do you have any muscle aches/pain?: No Do you have any abdominal pain?: No Are you experiencing loss of taste or smell?: No Other Medical History Have you received the Pneumonia Vaccine: No ROS Obtained: Yes Systems reviewed as appropriate & no additional complaints except as documented Physical Exam General General appearance: alert and in no apparent distress Comment: appears uncomfortable Head Head exam: atraumatic Eye Eye exam: Present normal appearance ENT ENT exam: Present normal external ear exam Neck Neck exam: Present full ROM Chest Chest inspection: Present symmetric chest wall rise and tenderness Respiratory Respiratory exam: Present normal lung sounds bilaterally; Absent respiratory distress, wheezes or stridor Cardiovascular Cardiovascular exam: Present normal rhythm and tachycardia Abdominal Exam Abdominal exam: Present soft; Absent tenderness or guarding exam: Present deferred Extremities Exam Extremities exam: Present normal inspection Back Exam Back exam: Present normal inspection Neurological Exam Neurological exam: Present alert and oriented X3 Psychiatric Psychiatric exam: Present normal affect Skin Skin exam: Present warm and diaphoresis HEART Score HEART Score HEART Score assessment performed?: Yes HEART Score: 7 Critical Care Critical Care Time Critical Care Time: Yes Attestation: On 05/28/25, the high probability of a clinically significant, sudden or life threatening deterioration of the following system(s) required my full and direct attention, intervention and personal management. The time I documented below is in addition to time spent performing reported procedures but includes the following listed in this critical care notation. Total Time Total Critical Care Time: 35 Medical Decision Making Miguel Inquiry Pt receiving controlled substance: No Vital Signs Vital Signs: 05/28/25 21:46 05/28/25 23:40 05/29/25 00:15 Temperature 98.4 F 98.7 F Temperature Source Oral Oral Pulse Rate 88 Pulse Rate [Left] 104 H Respiratory Rate 22 28 H Blood Pressure 92/54 L Blood Pressure [Right Arm] 123/83 Blood Pressure Mean [Right Arm] 96 02 Sat by Pulse Oximetry 98 Oxygen Delivery Method Room Air Room Air Room Air Lab Data Labs: Lab Results 05/28/25 21:30: WBC 8.3, RBC 3.94 L, Hgb 12.7 L, Hct 36.6 L, MCV 92.9, MCH 32.2 H, MCHC 34.7, RDW 12.7, Plt Count 155, MPV 10.3, Neut % (Auto) 47.4, Lymph % (Auto) 41.7, [place] % (Auto) 7.6, Eos % (Auto) 2.3, Baso % (Auto) 0.6, Neut # (Auto) 3.9, Lymph # (Auto) 3.5, [place] # (Auto) 0.6, Eos # (Auto) 0.2, Baso # (Auto) 0.1, APTT 23.1 L, VBG pH 7.44 H, VBG pCO2 24.3 L, VBG pO2 156.0 H, VBG HCO3 16.2 L, VBG Total CO2 17.0 L, VBG O2 Saturation 98.9 H, VBG Base Excess -7.9 L, VBG Lactic Acid 3.2 H, Sodium 129 L, Potassium 3.7, Chloride 97 L, Carbon Dioxide 19 L, Anion Gap 16.7 H, BUN 8 L, Creatinine 0.70, Estimated Creat Clear 211, Estimated GFR 119, Est GFR ( Amer) 144, Glucose 395 H, Calcium 8.4, Total Bilirubin 0.7, AST 26, ALT 24, Alkaline Phosphatase 84, Troponin I < 0.01, NT-Pro-B Natriuret Pep 80.8, Total Protein 6.8, Albumin 3.4 L, Globulin 3.4 H, Albumin/Globulin Ratio 1.0 L, HCV Ab VENICE w/Rflx PCR Qn Negative, HIV Ag/Ab Combo Qual Negative 05/28/25 22:08: Urine Color Yellow, Urine Appearance Clear, Urine pH 6.0, Ur Specific [place] <= 1.005, Urine Protein Negative, Urine Glucose (UA) 3+, Urine Ketones Negative, Urine Blood Negative, Urine Nitrate Negative, Urine Bilirubin Negative, Urine Urobilinogen 0.2, Ur Leukocyte Esterase Negative, Urine WBC Occasional, Urine Bacteria Trace 05/29/25 05:13 05/29/25 05:13 Response Orders (Tests/Meds): ED MEDICATIONS Generic Name Dose Route Start Last Admin Trade Name Freq PRN Reason Stop Dose Admin Acetaminophen 650 mg 05/28/25 23:35 05/29/25 01:19 Acetaminophen 325mg Tab PO 06/27/25 23:34 650 mg Q4HP PRN Administration Fever or Mild Pain (1-3) Albuterol/Ipratropium 3 ml 05/29/25 05:50 Ipratropium/Albuterol 3 Ml Neb IH 06/28/25 05:49 QIDP PRN Shortness Of Breath Or Wheezing Aspirin 81 mg 05/29/25 09:00 05/29/25 08:36 Aspirin Ec 81mg Tablet PO 06/28/25 08:59 81 mg DAILY EMILEE Administration Atorvastatin Calcium 40 mg 05/29/25 21:00 Atorvastatin 40mg Tablet PO 06/28/25 20:59 HS EMILEE Heparin Sodium/Dextrose 500 mls @ 30 mls/hr 05/29/25 07:45 05/29/25 08:37 Heparin 25,000 Units In D5w 500ml Premix IV 06/28/25 07:44 Not Given .[id number] EMILEE 1,500 UNITS/HR Insulin Glargine 44 unit 05/29/25 09:00 05/29/25 09:18 Insulin Glargine 100 Units/Ml 3ml Flexpen SUBCUT 06/28/25 08:59 44 units DAILY EMILEE Administration Insulin Human Lispro 0 unit 05/29/25 06:00 05/29/25 10:57 Humalog 100 Units/Ml 10ml Vial (Ssi) SUBCUT 06/28/25 05:59 5 unit ACHS EMILEE Administration Protocol Lisinopril 5 mg 05/29/25 11:15 05/29/25 11:21 Lisinopril 5mg Tablet PO 06/28/25 11:14 Not Given DAILY EMILEE Nicotine 21 mg 05/29/25 01:15 05/29/25 01:20 Nicotine 21mg/24hr Patch TD 06/28/25 01:14 21 mg DAILY EMILEE Administration Promethazine HCl 25 mg 05/28/25 23:35 Promethazine Hcl 25mg/Ml 1ml Vial IV 06/27/25 23:34 Q6HP PRN Nausea And Vomiting Sodium Chloride 25 ml 05/28/25 23:35 Sodium Chloride 0.9% 25ml Bag IV 06/27/25 23:34 NEEDED PRN for Use with IV Promethazine Discontinued Medications Generic Name Dose Route Start Last Admin Trade Name Freq PRN Reason Stop Dose Admin Heparin Sodium (Porcine) 4,000 unit 05/28/25 23:15 05/28/25 23:33 Heparin Sodium 5,000 Unit/Ml Vial IV 05/28/25 23:16 4,000 unit ONCE ONE Administration Heparin Sodium (Porcine) 4,000 unit 05/29/25 07:45 05/29/25 08:36 Heparin Sodium 5,000 Unit/Ml Vial IV 05/29/25 07:46 4,000 unit ONCE ONE Administration Heparin Sodium/Dextrose 500 mls @ 20 mls/hr 05/28/25 23:15 05/28/25 23:34 Heparin 25,000 Units In D5w 500ml Premix IV 06/27/25 23:14 20 mls/hr .Q25H EMILEE Administration 1,000 UNITS/HR Iopamidol 70 ml 05/28/25 22:18 05/28/25 22:19 Iopamidol-370 (76%);100ml Bottle IV 05/28/25 22:19 70 ml ONCE ONE Administration Miscellaneous 1 each 05/28/25 23:00 05/29/25 00:07 Heparin Drip Consult NOTAPPLIC 06/27/25 22:59 1 each CONSULT PHARMACY EMILEE Administration Miscellaneous 1 unit 05/29/25 05:50 05/29/25 07:26 Aerochamber/Optihaler MC 05/29/25 05:51 Not Given ONCE ONE Sodium Chloride 10 ml 05/28/25 22:18 05/28/25 22:19 Sodium Chloride 0.9% 10ml Syr (Rad Only) IV 05/28/25 22:19 10 ml ONCE ONE Administration Sodium Chloride 50 ml 05/28/25 22:18 05/28/25 22:19 0.9 % Sodium Chloride 50 Ml Vial IV 05/28/25 22:19 50 ml ONCE ONE Administration Sodium Chloride 25 ml 05/28/25 23:35 05/29/25 00:57 Sodium Chloride 0.9% 25ml Bag IV 05/28/25 23:36 Not Given ONCE ONE ORDERS Category Date Time Status CT angio chest PE protocol Stat Cat Scan 05/28/25 21:42 Completed BNP [NT Pro Brain Natriuretic Pep.] Stat Lab 05/28/25 21:30 Completed Basic Metabolic Panel AMLAB Lab 05/29/25 05:13 Completed CBC w/Auto Diff [Complete Blood Count Auto Diff] Stat Lab 05/28/25 21:30 Completed CMP [Comprehensive Metabolic Panel] Stat Lab 05/28/25 21:30 Completed Complete Blood Count Auto Diff AMLAB Lab 05/29/25 05:13 Completed HIV Combo Routine Lab 05/28/25 21:30 Completed Hepatitis C Ab Qual. W/ RFX Routine Lab 05/28/25 21:30 Completed PTT Heparin (inpatient only) Stat Lab 05/28/25 21:30 Completed PTT Heparin (inpatient only) Stat Lab 05/29/25 05:13 Completed Troponin I Q3H Lab 05/29/25 01:22 Completed Troponin I Q3H Lab 05/29/25 03:35 Completed Troponin I Q3H Lab 05/29/25 05:13 Completed Troponin I Stat Lab 05/28/25 21:30 Completed UA [Urinalysis and Microscopic] Stat Lab 05/28/25 22:08 Completed VBG [Venous Blood Gas] Stat RT 05/28/25 21:30 Completed MDM Narrative Medical Decision Narrative: Sony Richards is a 49-year-old male with a past medical history of hypertension, diabetes (insulin-dependent), high cholesterol, tobacco use who presents to the emergency department for sudden onset left-sided chest pain and shortness of breath. Patient states that 2 hours ago, he had sudden sharp left-sided chest pain with associated shortness of breath. He does note that the pain is worse with shortness of breath. He reports that he has a history of heart attack in the past. Patient received 324 mg of aspirin and 2 nitroglycerin tablets prior to arrival. Patient reported relief of pain after the first nitroglycerin tablets. On arrival, patient is tachycardic, normotensive, maintaining appropriate oxygen saturation on room air. Cardiopulmonary exam demonstrated no murmurs or rubs. He has no wheezing, rales or rhonchi. An EKG was obtained immediately upon arrival. There is some artifact, however on my interpretation, there is ST elevations in the inferior leads and V5 and V6 as well as T wave inversions in V1 and V2. Patient has a right bundle branch block. Given concern for STEMI, I discussed the patient's case with the marketing pr intern on-call who recommended getting CT PE and agreed to come and evaluate the patient and was not convinced that EKG was consistent with STEMI. Lab work was also obtained. CT PE interpreted by me personally. No evidence of pulmonary embolism or other acute findings. Initial troponin was negative. EKG without significant changes. Cardiology evaluated the patient and did not feel that Snow Remover needed to be activated but recommended admission for continued cardiac monitoring, trending troponins and heparin drip. I then discussed the patient's case with Dr. Tabor who agreed to admit the patient.
[2025-05-28 21:53] LABS: Hematocrit 36.6 % (42.0-52.0); Hemoglobin 12.7 g/dL (14.1-18.0); Immature Granulocytes % 0.4 %; Mean Corpuscular HGB Conc 34.7 g/dL (31.8-35.4); Mean Corpuscular Hemoglobin 32.2 pg (27.0-31.2); Mean Corpuscular Volume 92.9 fl (80-94); Nucleated Red Blood Cells % 0 %; Platelet Count 155 K/mm3 (142-424); Red Blood Count 3.94 M/mm3 (4.60-6.20); Red Cell Distribution Width-SD 43.8 fL; White Blood Count 8.3 K/mm3 (4.8-10.8)
[2025-05-28 21:54] LABS: Chloride 97 mmol/L (98-107)
[2025-05-28 21:55] LABS: Albumin Level 3.4 g/dl (3.5-5.0); Potassium 3.7 mmoL/L (3.5-5.1); Sodium 129 mmol/L (136-145)
[2025-05-28 21:57] LABS: Blood Urea Nitrogen 8 mg/dl (9-20); Creatinine Clearance Estimated 211 mL/min (50-200); Creatinine,Serum 0.70 mg/dl (0.66-1.25); Estimated Glomerular Filt Rate 119 ml/min (>60); GFR (African American) 144 ML/MIN (>60)
[2025-05-28 21:58] LABS: Alanine Aminotransferase 24 U/L (12-78); Albumin/Globulin Ratio 1.0 (1.1-1.8); Alkaline Phosphatase 84 U/L (38-126); Anion Gap 16.7 mEq/L (5-15); Aspartate Amino Transferase 26 U/L (17-59); Bilirubin,Total 0.7 mg/dl (0.2-1.3); Calcium 8.4 mg/dl (8.4-10.2); Carbon Dioxide 19 mmol/L (22.0-30.0); Globulin 3.4 g/dL (1.3-3.2); Glucose 395 mg/dl (74-100); Total Protein,Serum 6.8 g/dl (6.3-8.2)
[2025-05-28 21:59] LABS: VBG HCO3 16.2 mmol/L (23-30); VBG PH 7.44 mmol/L (7.31-7.41); VBG PO2 156.0 mmol/L (28-40)
[2025-05-28 22:00] LABS: Lactate Venous 3.2 mmol/L (0.4-2.0); VBG PCO2 24.3 mmol/L (35-51)
[2025-05-28 22:07] LABS: NT Pro Brain Natriuretic Pep. 80.8 pg/mL (0-125)
[2025-05-28 22:10] LABS: Troponin I < 0.01 ng/ml (0.00-0.034)
[2025-05-28 22:18] LABS: Microscopic, Urine URINE MICROSCOPIC (MICROSCOPIC)
[2025-05-28 22:19] LABS: Bilirubin,Urine Negative (Negative); Color,Urine YELLOW (Yellow); Glucose,Urine (UA) 3+ (Negative); Ketones,Urine Negative (Negative); Leukocyte Esterase,Urine Negative (Negative); PH,Urine 6.0 (5.0-8.5); Protein,Urine Negative (Negative); Specific Gravity, Urine <= 1.005 (1.005-1.030); Urobilinogen,Urine 0.2 EU/dl (0.2)
[2025-05-28] MEDS: 0.9 % SODIUM CHLORIDE 50 ML VIAL IV (22:19)
[2025-05-28] MEDS: IOPAMIDOL-370 (76%);100ML BOTTLE 70 ML IV (22:19)
[2025-05-28] MEDS: SODIUM CHLORIDE 0.9% 10ML SYR (RAD ONLY) 10 ML IV (22:19)
--- NOTE | 2025-05-28 22:35 | ECG_ITS ---
APPROVED REPORT Exam: Resting ECG HR:89 bpm ECG Measurements Heart Rate 89 AXES HI 227 P 38 QRSd 146 QRS -26 QT 397 T 61 QTc 444 Conclusion SINUS RHYTHM WITH FIRST DEGREE AV BLOCK BORDERLINE LEFT AXIS DEVIATION [QRS AXIS < -20] RIGHT BUNDLE BRANCH BLOCK [120+ ms QRS DURATION, UPRIGHT V1, 40+ ms S IN I/aVL/V4/V5/V6] ABNORMAL ECG Electronically signed by : ANDER DALAL, 06/01/2025 08:15:01
[2025-05-28 22:37] LABS: Bacteria,Urine Trace /lpf; WBC,Urine Occasional #/hpf (0-3)
[2025-05-28 23:03] LABS: Hepatitis C Ab Qual. W/ RFX NEGATIVE (Negative)
[2025-05-28] MEDS: HEPARIN SODIUM 5,000 UNIT/ML VIAL 4000 UNIT IV (23:33)
[2025-05-28 23:34] LABS: PTT Heparin (inpatient only) 23.1 Seconds (50-75)
[2025-05-28] MEDS: HEPARIN SODIUM,PORCINE/D5W 500 ML 20 UNIT IV (23:34)
[2025-05-29] MEDS: HEPARIN DRIP CONSULT 1 EACH NOTAPPLIC (00:07)
--- NOTE | 2025-05-29 00:09 | PC.NURSE ---
Report called to Susanna
[2025-05-29 00:15] VITALS: BP 92/54; PULSE 88; RESP 28; TEMP 37.1; O2SAT 95
[2025-05-29 00:30] VITALS: PULSE 90
--- NOTE | 2025-05-29 00:31 | PC.NURSE ---
Patient arrived to floor via wheelchair from ED at 00:25.
[2025-05-29] MEDS: ACETAMINOPHEN 325MG TAB 650 MG PO (01:19)
[2025-05-29] MEDS: NICOTINE 21MG/24HR PATCH 21 MG TD (01:20)
[2025-05-29 01:25] VITALS: BP 138/56; PULSE 85; RESP 18; TEMP 36.6; O2SAT 94
[2025-05-29 01:57] LABS: Reflex Lactic Add Lactic Reflex
[2025-05-29 02:20] LABS: Lactic Acid Follow Up (RFLX 1) 3.1 mmol/L (0.7-2.1); Troponin I < 0.01 ng/ml (0.00-0.034)
--- NOTE | 2025-05-29 02:40 | PC.NURSE ---
Called [facility] to verify ptt times and that heparin drip consult was completed in the ER. Spoke to Lorelei. Next ptt is due at 0515, 6 hours after initiation of drip.
--- NOTE | 2025-05-29 02:58 | PC.NURSE ---
Pt AOx4. Arrived to floor earlier, c/o minimal pain that was relieved with tylenol. Pt is on a heparin drip currently running at 20mL/hr through IV in left forearm. Next pTT is due at 0530. Pt is currently resting in bed with eyes closed. Respirations even and unlabored. Bed is low, locked, and call light is in reach.
[2025-05-29 03:59] LABS: Reflex Lactic (2 hrs) Add Lactic Reflex
[2025-05-29 04:00] VITALS: BP 110/59; PULSE 77; PULSE 80; RESP 21; TEMP 36.8; O2SAT 92; BMI 39.8
[2025-05-29 04:09] LABS: Troponin I < 0.01 ng/ml (0.00-0.034)
[2025-05-29 05:09] LABS: Lactic Acid Follow up (RFLX 2) 3.0 mmol/L (0.7-2.1)
[2025-05-29 05:40] LABS: Hematocrit 35.2 % (42.0-52.0); Hemoglobin 12.1 g/dL (14.1-18.0); Immature Granulocytes % 0.4 %; Mean Corpuscular HGB Conc 34.4 g/dL (31.8-35.4); Mean Corpuscular Hemoglobin 32.4 pg (27.0-31.2); Mean Corpuscular Volume 94.4 fl (80-94); Nucleated Red Blood Cells % 0 %; Platelet Count 133 K/mm3 (142-424); Red Blood Count 3.73 M/mm3 (4.60-6.20); Red Cell Distribution Width-SD 44.8 fL; White Blood Count 5.3 K/mm3 (4.8-10.8)
[2025-05-29 05:51] LABS: Chloride 102 mmol/L (98-107); Potassium 3.7 mmoL/L (3.5-5.1); Sodium 132 mmol/L (136-145)
--- NOTE | 2025-05-29 05:53 | P.HP_ITS ---
History of Present Illness *Admission Date: 05/28/25 *Reason for visit:: chest pain *History of present illness: Patient is a 49-year-old male with past medical history of hypertension hyperlipidemia diabetes mellitus asthma DVT who presents to the hospital due to left-sided chest pain. Patient mentions his chest pain started suddenly, left- sided, on further evaluation patient was found to have normal troponin, patient did have EKG abnormalities including T wave inversions. Cardiology evaluated patient in the emergency department and recommended IV heparin and inpatient admission. [facility] Disclaimer: The information contained in this section may have been updated after the patient was seen, as this information can be updated by other users. Medical History Hypertension Hyperlipidemia Depression Anxiety Asthma Diabetes mellitus Surgical History H/O vasectomy Family History Mother Diabetes Father Coronary artery disease Social History Smoking Status: Current every day smoker second hand exposure: Yes alcohol intake: current alcohol intake frequency: a few times a week counseling given: Yes counseling provided: provider counseling substance use type: denies use current occupational status: employed Travel in the last 8 weeks?: None household members: family housing: house Have you lived/traveled outside US in past 30 days?: No Contact w/someone who lives/traveled outside US past 30 days?: No Exposure to someone with infectious disease in past 14 days?: No Do you have a fever (greater than 100.4 F or 38 C)?: No Have you tested positive for COVID-19?: No Exposed to someone with COVID-19 in past 14 days?: No Do you have a sore throat?: No Do you have a cough?: No Do you have any weakness?: No Do you have any diarrhea?: No Are you experiencing any unusual bleeding?: No Do you have any muscle aches/pain?: No Do you have any abdominal pain?: No Are you experiencing loss of taste or smell?: No Other Medical History Have you received the Flu Vaccine for this season: No Have you received the Pneumonia Vaccine: No Review of Systems Review of Systems Review of systems:: pertinent systems reviewed and negative unless documented below Meds Home Medications and Allergies Home Medications ?Medication ?Instructions ?Recorded ?Confirmed ?Type ipratropium 0.5 mg-albuterol 3 mg 3 ml inhalation QID PRN shortness 03/25/24 05/29/25 Rx (2.5 mg base)/3 mL nebulization of breath or wheezing #90 mL soln blood sugar diagnostic (Blood #100 ea 10/27/24 5 Rx Glucose Test strips) blood-glucose meter (Blood Glucose #1 ea 10/27/2402/16 Rx Monitoring kit) lancets 26 gauge (Easy Touch #100 ea 10/27/24 04/27/25 Rx Lancets) metformin 500 mg tablet,extended 1,000 mg (2 x 500 mg) PO BID 3 10/27/24 05/29/25 Rx release 24 hr months #120 tabs blood-glucose,music rehabilitation therapist,cont #1 ea 02/05/25 04/27/25 Rx (Dexcom G6 Water Inspector) sildenafil 100 mg tablet (Viagra) 100 mg PO DAILY PRN sexual 02/05/25 05/29/25 Rx activity #10 tabs albuterol sulfate 90 mcg/actuation 1 puff inhalation Q ID #6.7 grams 02/12/25 05/29/25 Rx aerosol inhaler pen needle, diabetic 31 gauge x #100 ea 02/12/2504/27 Rx 1/4 (Easy Comfort Pen [place]) aspirin 81 mg tablet,delayed 81 mg PO DAILY 90 days #9 0 tabs 03/08/25 05/29/25 Rx release (Adult Aspirin Regimen) insulin glargine 100 unit/mL (3 44 unit (0.44 mL) SQ D AILY #15 mL 03/08/25 05/29/25 Rx mL) subcutaneous pen (Lantus Solostar U-100 Insulin) rosuvastatin 10 mg tablet 10 mg PO HS #30 tabs 5 05/29/25 Rx blood-glucose sensor (Dexcom G6 #3 ea 04/27/25 5 Rx Sensor device) blood-glucose transmitter (Dexcom #1 ea 04/27/2504/27 Rx G6 Transmitter device) New Prescriptions to Start Prescriptions: Allergies Allergy/AdvReac Type Severity Reaction Status Date / Time hydrocodone Allergy Verified 04/27/25 10:41 Exam Data for Last 24 hours Vital signs and Labs for Last 24 Hours: Temp Pulse Resp BP Pulse Ox O2 Del Method 98.2 F 77 21 110/59 L 92 L Room Air 05/29/25 04:00 05/29/25 04:00 05/29/25 04:00 05/29/25 04:00 05/29/25 04:00 05/29/25 05:00 Laboratory Results - last 24 hr 05/28/25 21:30: WBC 8.3, RBC 3.94 L, Hgb 12.7 L, Hct 36.6 L, MCV 92.9, MCH 32.2 H, MCHC 34.7, RDW 12.7, Plt Count 155, MPV 10.3, Neut % (Auto) 47.4, Lymph % (Auto) 41.7, [place] % (Auto) 7.6, Eos % (Auto) 2.3, Baso % (Auto) 0.6, Neut # (Auto) 3.9, Lymph # (Auto) 3.5, [place] # (Auto) 0.6, Eos # (Auto) 0.2, Baso # (Auto) 0.1, APTT 23.1 L, VBG pH 7.44 H, VBG pCO2 24.3 L, VBG pO2 156.0 H, VBG HCO3 16.2 L, VBG Total CO2 17.0 L, VBG O2 Saturation 98.9 H, VBG Base Excess - 7.9 L, VBG Lactic Acid 3.2 H, Sodium 129 L, Potassium 3.7, Chloride 97 L, Carbon Dioxide 19 L, Anion Gap 16.7 H, BUN 8 L, Creatinine 0.70, Estimated Creat Clear 211, Estimated GFR 119, Est GFR ( Amer) 144, Glucose 395 H, Calcium 8.4, Total Bilirubin 0.7, AST 26, ALT 24, Alkaline Phosphatase 84, Troponin I < 0.01, NT-Pro-B Natriuret Pep 80.8, Total Protein 6.8, Albumin 3.4 L, Globulin 3.4 H, Albumin/Globulin Ratio 1.0 L, HCV Ab VENICE w/Rflx PCR Qn Negative, HIV Ag/Ab Combo Qual Negative 05/28/25 22:08: Urine Color Yellow, Urine Appearance Clear, Urine pH 6.0, Ur Specific [place] <= 1.005, Urine Protein Negative, Urine Glucose (UA) 3+, Urine Ketones Negative, Urine Blood Negative, Urine Nitrate Negative, Urine Bilirubin Negative, Urine Urobilinogen 0.2, Ur Leukocyte Esterase Negative, Urine WBC Occasional, Urine Bacteria Trace 05/29/25 01:22: Lactate 3.1 H, Troponin I < 0.01 05/29/25 03:35: Troponin I < 0.01 05/29/25 03:37: Lactate 3.0 H 05/29/25 05:13: WBC 5.3 D, RBC 3.73 L, Hgb 12.1 L, Hct 35.2 L, MCV 94.4 H, MCH 32.4 H, MCHC 34.4, RDW 12.9, Plt Count 133 L, MPV 10.2, Neut % (Auto) 38.3, Lymph % (Auto) 49.0, [place] % (Auto) 8.3, Eos % (Auto) 3.4, Baso % (Auto) 0.6, Neut # (Auto) 2.0, Lymph # (Auto) 2.6, [place] # (Auto) 0.4, Eos # (Auto) 0.2, Baso # (Auto) 0.0, Sodium 132 L, Potassium 3.7, Chloride 102 I & O for Last 24 hours: Intake & Output 05/26/25 05/27/25 05/28/25 05/29/25 23:59 23:59 23:59 23:59 Weight 117.934 kg 128.956 kg Constitutional Constitutional: no acute distress *Routine HEENT Exam Head: Present normocephalic Eye: Present EOMI and PERRL ENT: Present mucous membranes moist *Routine Neck Exam Neck: Present supple; Absent lymphadenopathy *Routine Respiratory Exam Respiratory: Present CTA bilaterally *Routine Cardiovascular Exam Cardiovascular: Present RRR *Routine Abdominal Exam Abdominal: Present soft and normoactive bowel sounds; Absent tenderness *Routine Rectal Exam Rectal:: deferred *Routine Genitalia Exam Genitalia:: deferred *Routine Extremities Exam Extremities: Absent cyanosis, clubbing or edema *Routine Skin Exam Skin: Present warm; Absent rash *Routine Neurological Exam Neurological: Present alert and oriented X3 Assessment and Plan *Assessment and plan (1) Chest pain: Status: Acute Qualifiers: Chest pain type: unspecified Qualified Code(s): R07.9 - Chest pain, unspecified Category: Medical Code(s): R07.9 - Chest pain, unspecified (2) Unstable angina: Status: Acute Category: Medical Code(s): I20.0 - Unstable angina (3) Hyperlipidemia: Status: Acute Category: Medical Code(s): E78.5 - Hyperlipidemia, unspecified (4) Hypertension: Status: Acute Category: Medical Code(s): I10 - Essential (primary) hypertension (5) Diabetes mellitus: Status: Acute Category: Medical Code(s): E11.9 - Type 2 diabetes mellitus without complications Plan Patient is a 49-year-old male with past medical history of hypertension hyperlipidemia diabetes mellitus asthma DVT who presents to the hospital due to left-sided chest pain. Patient mentions his chest pain started suddenly, left-sided, on further evaluation patient was found to have normal troponin, patient did have EKG abnormalities including T wave inversions. Cardiology evaluated patient in the emergency department and recommended IV heparin and inpatient admission. Assessment and plan Unstable angina CAD Monitor on cardiac inverted block operator troponin Cardiology consulted from the emergency department Started on IV heparin Resume home aspirin, statin Chronic medical conditions Diabetes mellitus Resume home long-acting insulin Lantus 44 units nightly, order insulin sliding scale Hypertension Hyperlipidemia Resume home medications when medication list is updated DVT prophylaxis-subcutaneous heparin
[2025-05-29 05:54] LABS: Blood Urea Nitrogen 8 mg/dl (9-20); Creatinine Clearance Estimated 269 mL/min (50-200); Creatinine,Serum 0.60 mg/dl (0.66-1.25); Estimated Glomerular Filt Rate 143 ml/min (>60); GFR (African American) 173 ML/MIN (>60)
[2025-05-29 05:55] LABS: Anion Gap 13.7 mEq/L (5-15); Calcium 8.2 mg/dl (8.4-10.2); Carbon Dioxide 20 mmol/L (22.0-30.0); Glucose 288 mg/dl (74-100)
[2025-05-29] MEDS: humaLOG 100 UNITS/ML 10ML VIAL (SSI) SUBCUT ×2 (06:13→10:57)
[2025-05-29 06:14] LABS: POC Glucose,Bedside 267 (70-110)
--- NOTE | 2025-05-29 06:15 | PC.NURSE ---
Picked up trash, linens, and refilled water.
[2025-05-29 07:33] LABS: PTT Heparin (inpatient only) 30.3 Seconds (50-75)
[2025-05-29 08:00] VITALS: BP 147/72; PULSE 78; PULSE 80; RESP 18; TEMP 36.6; O2SAT 94
[2025-05-29] MEDS: ASPIRIN EC 81MG TABLET 81 MG PO (08:36)
[2025-05-29] MEDS: HEPARIN SODIUM 5,000 UNIT/ML VIAL 4000 UNIT IV (08:36)
--- NOTE | 2025-05-29 08:53 | PC.NURSE ---
carlos from [facility] contacted this RN regarding recent PTT and adjustment to heparin drip. last PTT was 30.3. Heparin bolus given per MAR and adjustment from 20ml/hr to 30ml/hr made to drip per order.
--- NOTE | 2025-05-29 08:55 | HMH.PHAINT1 ---
Pharmacy Intervention Comments: MEDICATION RECONCILIATION COMPLETED ON PATIENT USING EXTERNAL FILL HISTORY FROM PHARMACY AND LIST FROM PCP OFFICE. -CHERYL CANAS, [place]
[2025-05-29] MEDS: INSULIN GLARGINE 100 UNITS/ML 3ML FLEXPEN 44 UNIT SUBCUT (09:18)
[2025-05-29 09:38] LABS: POC Glucose,Bedside 258 (70-110)
--- NOTE | 2025-05-29 10:50 | EXP.DC.SUM ---
General Admission date:: 05/28/25 Discharge date: 05/29/25 HPI HPI HPI: Patient is a 49-year-old male with past medical history of hypertension hyperlipidemia diabetes mellitus asthma DVT who presents to the hospital due to left-sided chest pain. Patient mentions his chest pain started suddenly, left-sided, on further evaluation patient was found to have normal troponin, patient did have EKG abnormalities including T wave inversions. Cardiology evaluated patient in the emergency department and recommended IV heparin and inpatient admission. Hospital Course Hospital Course Hospital Course: Mr. Richards is a 49-year-old male with history of hypertension, hyperlipidemia, diabetes, tobacco use disorder. Presented to the hospital due to left-sided chest pain. Mentions the pain started suddenly. Very sharp in his chest. Initial troponin normal. EKG had suspicious T wave inversions. Cardiology was consulted and evaluated patient in the ED, recommended heparin and inpatient admission. Monitored overnight. Serial troponins remained less than 0.01. Pain reproducible on exam in the morning. 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 Exertion did not make the pain worse. Repeat EKG obtained in the morning showing no T wave inversions. Stable right bundle branch block. Diabetes poorly controlled. Morning glucose 288. Kidney function stable with BUN 8, creatinine 0.6. White count and hemoglobin normal. Patient stable on room air. Given improvement in EKG, negative troponins, reproducibility of pain on exam, discussion with patient about risk factor modification, and need for close outpatient follow-up, will discharge patient home with instructions to follow-up with cardiology Saturday in their office for further evaluation. Of note: CTA chest on admission did show the following: No pulmonary embolus. Evidence of prior granulomatous exposure. 6 mm nodule in the anterior right middle lobe. 5 mm subpleural nodule in the superior right middle lobe. Recommend follow-up CT in 12 months. A1c in February of 9.8. Repeat today of 12.5. Patient's Lantus increased to 50 units every morning. Would benefit from considering initiating Ozempic and potentially Jardiance for cardiac benefit as well as diabetes benefit. Will defer to outpatient setting. Lipid panel with total cholesterol of 160, HDL of 66 [place] score depending To the time of discharge. Blood pressure 147. Total cholesterol 160, HDL 66. Score of 6.7% 10-year risk of GA or . Patient has multiple risk factors however including poorly controlled diabetes, obesity, hypertension, tobacco use disorder. Patient already on lisinopril and Crestor. Increased Crestor to 20 mg daily. Counseled on optimization of diabetes, smoking cessation, need to follow-up with cardiology in the next week for outpatient eval. Informed to either come into clinic Saturday at 9 AM and they will work him into their schedule or call first thing Saturday for an appointment that works with his schedule better. Patient stated understanding. Exam Data for Last 24 hours Vital signs and Labs for Last 24 Hours: Temp Pulse Resp BP Pulse Ox O2 Del Method 97.8 F 78 18 147/72 H 94 L Room Air 05/29/25 08:00 05/29/25 08:00 05/29/25 08:00 05/29/25 08:00 05/29/25 08:00 05/29/25 08:51 Laboratory Results - last 24 hr 05/28/25 21:30: WBC 8.3, RBC 3.94 L, Hgb 12.7 L, Hct 36.6 L, MCV 92.9, MCH 32.2 H, MCHC 34.7, RDW 12.7, Plt Count 155, MPV 10.3, Neut % (Auto) 47.4, Lymph % (Auto) 41.7, Bell % (Auto) 7.6, Eos % (Auto) 2.3, Baso % (Auto) 0.6, Neut # (Auto) 3.9, Lymph # (Auto) 3.5, Bell # (Auto) 0.6, Eos # (Auto) 0.2, Baso # (Auto) 0.1, APTT 23.1 L, VBG pH 7.44 H, VBG pCO2 24.3 L, VBG pO2 156.0 H, VBG HCO3 16.2 L, VBG Total CO2 17.0 L, VBG O2 Saturation 98.9 H, VBG Base Excess -7.9 L, VBG Lactic Acid 3.2 H, Sodium 129 L, Potassium 3.7, Chloride 97 L, Carbon Dioxide 19 L, Anion Gap 16.7 H, BUN 8 L, Creatinine 0.70, Estimated Creat Clear 211, Estimated GFR 119, Est GFR ( Amer) 144, Glucose 395 H, Calcium 8.4, Total Bilirubin 0.7, AST 26, ALT 24, Alkaline Phosphatase 84, Troponin I < 0.01, NT-Pro-B Natriuret Pep 80.8, Total Protein 6.8, Albumin 3.4 L, Globulin 3.4 H, Albumin/Globulin Ratio 1.0 L, HCV Ab VENICE w/Rflx PCR Qn Negative, HIV Ag/Ab Combo Qual Negative 05/28/25 22:08: Urine Color Yellow, Urine Appearance Clear, Urine pH 6.0, Ur Specific [place] <= 1.005, Urine Protein Negative, Urine Glucose (UA) 3+, Urine Ketones Negative, Urine Blood Negative, Urine Nitrate Negative, Urine Bilirubin Negative, Urine Urobilinogen 0.2, Ur Leukocyte Esterase Negative, Urine WBC Occasional, Urine Bacteria Trace 05/29/25 01:22: Lactate 3.1 H, Troponin I < 0.01 05/29/25 03:35: Troponin I < 0.01 05/29/25 03:37: Lactate 3.0 H 05/29/25 05:13: WBC 5.3 D, RBC 3.73 L, Hgb 12.1 L, Hct 35.2 L, MCV 94.4 H, MCH 32.4 H, MCHC 34.4, RDW 12.9, Plt Count 133 L, MPV 10.2, Neut % (Auto) 38.3, Lymph % (Auto) 49.0, Bell % (Auto) 8.3, Eos % (Auto) 3.4, Baso % (Auto) 0.6, Neut # (Auto) 2.0, Lymph # (Auto) 2.6, Bell # (Auto) 0.4, Eos # (Auto) 0.2, Baso # (Auto) 0.0, APTT 30.3 L, Sodium 132 L, Potassium 3.7, Chloride 102, Carbon Dioxide 20 L, Anion Gap 13.7, BUN 8 L, Creatinine 0.60 L, Estimated Creat Clear 269, Estimated GFR 143, Est GFR ( Amer) 173 D, Glucose 288 H D, Calcium 8.2 L 05/29/25 06:06: POC Glucose 267 H 05/29/25 09:18: POC Glucose 258 H I & O for Last 24 hours: Intake & Output 05/26/25 05/27/25 05/28/25 05/29/25 23:59 23:59 23:59 23:59 Intake Total 120 / 120 Balance 120 / 120 Weight 117.934 kg 128.956 kg Constitutional Constitutional: no acute distress, obese, chronically ill appearing and cooperative *Routine HEENT Exam Head: Present normocephalic Eye: Present EOMI and PERRL ENT: Present mucous membranes moist *Routine Neck Exam Neck: Present supple; Absent lymphadenopathy Routine Chest/Breast/Axilla Exam Chest wall: Present tenderness (Left pectoralis with palpation) *Routine Respiratory Exam Respiratory: Present CTA bilaterally; Absent rhonchi, wheezes or crackles *Routine Cardiovascular Exam Cardiovascular: Present RRR *Routine Abdominal Exam Abdominal: Present soft and normoactive bowel sounds; Absent tenderness *Routine Rectal Exam Patient deferred: visual exam *Routine Exam Patient deferred: penile exam *Routine Extremities Exam Extremities: Absent cyanosis, clubbing or edema Comments: Tender to touch, states they are very sensitive *Routine Skin Exam Skin: Present intact and warm; Absent rash *Routine Neurological Exam Neurological: Present alert, oriented X3 and moving all extremities; Absent altered mental status Routine Psychiatric Exam Psychiatric: Present normal affect and cooperative Results Data Completed and Pending Labs on day of discharge: Labs from last 24 hours 05/29/25 05/29/25 05/29/25 09:18 06:06 05:13 WBC 5.3 D RBC 3.73 L Hgb 12.1 L Hct 35.2 L MCV 94.4 H MCH 32.4 H MCHC 34.4 RDW 12.9 Plt Count 133 L MPV 10.2 Neut % (Auto) 38.3 Lymph % (Auto) 49.0 Bell % (Auto) 8.3 Eos % (Auto) 3.4 Baso % (Auto) 0.6 Neut # (Auto) 2.0 Lymph # (Auto) 2.6 Bell # (Auto) 0.4 Eos # (Auto) 0.2 Baso # (Auto) 0.0 APTT 30.3 L VBG pH VBG pCO2 VBG pO2 VBG HCO3 VBG Total CO2 VBG O2 Saturation VBG Base Excess VBG Lactic Acid Sodium 132 L Potassium 3.7 Chloride 102 Carbon Dioxide 20 L Anion Gap 13.7 BUN 8 L Creatinine 0.60 L Estimated Creat Clear 269 Estimated GFR 143 Est GFR ( Amer) 173 D Glucose 288 H D POC Glucose 258 H 267 H Lactate Calcium 8.2 L Total Bilirubin AST ALT Alkaline Phosphatase Troponin I NT-Pro-B Natriuret Pep Total Protein Albumin Globulin Albumin/Globulin Ratio Urine Color Urine Appearance Urine pH Ur Specific [place] Urine Protein Urine Glucose (UA) Urine Ketones Urine Blood Urine Nitrate Urine Bilirubin Urine Urobilinogen Ur Leukocyte Esterase Urine WBC Urine Bacteria HCV Ab VENICE w/Rflx PCR Qn HIV Ag/Ab Combo Qual 05/29/25 05/29/25 05/29/25 03:37 03:35 01:22 WBC RBC Hgb Hct MCV MCH MCHC RDW Plt Count MPV Neut % (Auto) Lymph % (Auto) Bell % (Auto) Eos % (Auto) Baso % (Auto) Neut # (Auto) Lymph # (Auto) Bell # (Auto) Eos # (Auto) Baso # (Auto) APTT VBG pH VBG pCO2 VBG pO2 VBG HCO3 VBG Total CO2 VBG O2 Saturation VBG Base Excess VBG Lactic Acid Sodium Potassium Chloride Carbon Dioxide Anion Gap BUN Creatinine Estimated Creat Clear Estimated GFR Est GFR ( Amer) Glucose POC Glucose Lactate 3.0 H 3.1 H Calcium Total Bilirubin AST ALT Alkaline Phosphatase Troponin I < 0.01 < 0.01 NT-Pro-B Natriuret Pep Total Protein Albumin Globulin Albumin/Globulin Ratio Urine Color Urine Appearance Urine pH Ur Specific [place] Urine Protein Urine Glucose (UA) Urine Ketones Urine Blood Urine Nitrate Urine Bilirubin Urine Urobilinogen Ur Leukocyte Esterase Urine WBC Urine Bacteria HCV Ab VENICE w/Rflx PCR Qn HIV Ag/Ab Combo Qual 05/28/25 05/28/25 22:08 21:30 WBC 8.3 RBC 3.94 L Hgb 12.7 L Hct 36.6 L MCV 92.9 MCH 32.2 H MCHC 34.7 RDW 12.7 Plt Count 155 MPV 10.3 Neut % (Auto) 47.4 Lymph % (Auto) 41.7 Bell % (Auto) 7.6 Eos % (Auto) 2.3 Baso % (Auto) 0.6 Neut # (Auto) 3.9 Lymph # (Auto) 3.5 Bell # (Auto) 0.6 Eos # (Auto) 0.2 Baso # (Auto) 0.1 APTT 23.1 L VBG pH 7.44 H VBG pCO2 24.3 L VBG pO2 156.0 H VBG HCO3 16.2 L VBG Total CO2 17.0 L VBG O2 Saturation 98.9 H VBG Base Excess -7.9 L VBG Lactic Acid 3.2 H Sodium 129 L Potassium 3.7 Chloride 97 L Carbon Dioxide 19 L Anion Gap 16.7 H BUN 8 L Creatinine 0.70 Estimated Creat Clear 211 Estimated GFR 119 Est GFR ( Amer) 144 Glucose 395 H POC Glucose Lactate Calcium 8.4 Total Bilirubin 0.7 AST 26 ALT 24 Alkaline Phosphatase 84 Troponin I < 0.01 NT-Pro-B Natriuret Pep 80.8 Total Protein 6.8 Albumin 3.4 L Globulin 3.4 H Albumin/Globulin Ratio 1.0 L Urine Color Yellow Urine Appearance Clear Urine pH 6.0 Ur Specific [place] <= 1.005 Urine Protein Negative Urine Glucose (UA) 3+ Urine Ketones Negative Urine Blood Negative Urine Nitrate Negative Urine Bilirubin Negative Urine Urobilinogen 0.2 Ur Leukocyte Esterase Negative Urine WBC Occasional Urine Bacteria Trace HCV Ab VENICE w/Rflx PCR Qn Negative HIV Ag/Ab Combo Qual Negative DS: Diagnosis Discharge Diagnosis (1) Chest pain: Status: Acute Code(s): R07.9 - Chest pain, unspecified Qualifiers: Chest pain type: unspecified Qualified Code(s): R07.9 - Chest pain, unspecified (2) Unstable angina: Status: Acute Code(s): I20.0 - Unstable angina (3) Hyperlipidemia: Status: Acute Code(s): E78.5 - Hyperlipidemia, unspecified (4) Hypertension: Status: Acute Code(s): I10 - Essential (primary) hypertension (5) Diabetes mellitus: Status: Acute Code(s): E11.9 - Type 2 diabetes mellitus without complications (6) Obesity (BMI 30-39.9): Status: Acute Code(s): E66.9 - Obesity, unspecified Meds Home Medications and Allergies Home Medications ?Medication ?Instructions ?Recorded ?Confirmed ?Type blood sugar diagnostic (Blood #100 ea 10/27/24 05/29/25 Rx Glucose Test strips) blood-glucose meter (Blood Glucose #1 ea 10/27/24 05/29/25 Rx Monitoring kit) lancets 26 gauge (Easy Touch #100 ea 10/27/24 05/29/25 Rx Lancets) metformin 500 mg tablet,extended 1,000 mg (2 x 500 mg) PO BID 3 10/27/24 05/29/25 Rx release 24 hr months #120 tabs blood-glucose,fat pressroom worker,cont #1 ea 02/05/25 05/29/25 Rx (Dexcom G6 Hydraulic Repairer) albuterol sulfate 90 mcg/actuation 1 puff inhalation QID #6.7 grams 02/12/25 05/29/25 Rx aerosol inhaler pen needle, diabetic 31 gauge x #100 ea 02/12/25 05/29/25 Rx 1/4 (Easy Comfort Pen [place]) aspirin 81 mg tablet,delayed 81 mg PO DAILY 90 days #90 tabs 03/08/25 05/29/25 Rx release (Adult Aspirin Regimen) blood-glucose sensor (Dexcom G6 #3 ea 04/27/25 05/29/25 Rx Sensor device) blood-glucose transmitter (Dexcom #1 ea 04/27/25 05/29/25 Rx G6 Transmitter device) insulin glargine 100 unit/mL (3 50 unit (0.5 mL) SQ DAILY #15 mL 05/29/25 05/29/25 Rx mL) subcutaneous pen (Lantus Solostar U-100 Insulin) lisinopril 5 mg tablet 5 mg PO DAILY 05/29/25 05/29/25 History rosuvastatin 20 mg tablet 20 mg PO DAILY #30 tabs 05/29/25 Rx sildenafil 100 mg tablet (Viagra) 100 mg PO DAILYP PRN sexual 05/29/25 05/29/25 History activity New Prescriptions to Start Prescriptions: daviduvastatin Jose Guadalupe Gan Allergies Allergy/AdvReac Type Severity Reaction Status Date / Time hydrocodone AdvReac Abdominal Verified 05/29/25 11:16 Pain lisinopril AdvReac Nausea Verified 05/29/25 11:16 Discharge Plan Disposition Patient Disposition: Home, Self-Care Condition: Fair Follow up Plan Follow up with: George Dixon MD [Primary Care Provider, Internal Medicine] - Enter time for follow up Referral Note: please call for appointment Nagi Faulkner MD [Staff Physician, Cardiology] - Enter time for follow up Referral Note: 2-3 days please call for appointment Prescriptions/Medication Reconciliation: New rosuvastatin 20 mg tablet 20 mg PO DAILY Qty: 30 0RF Continued metformin 500 mg tablet extended release 24 hr 1,000 mg PO BID 90 Days Qty: 120 2RF (DME) blood-glucose meter [Blood Glucose Monitoring] Kit See Rx Instructions .ROUTE .MEDSUPPLY Qty: 1 0RF Rx Instructions: As directed (DME) Blood Glucose Test Strip See Rx Instructions .ROUTE .MEDSUPPLY Qty: 100 2RF Rx Instructions: As directed (DME) lancets [Easy Touch Lancets] 26 gauge misc See Rx Instructions .Route Qty: 100 3RF Rx Instructions: As directed (DME) Dexcom G6 Hydraulic Repairer Misc See Rx Instructions .Route Qty: 1 0RF Rx Instructions: As directed aspirin [Adult Aspirin Regimen] 81 mg tablet,delayed release (DR/EC) 81 mg PO DAILY 90 Days Qty: 90 2RF (DME) Dexcom G6 Transmitter Device See Rx Instructions .Route Qty: 1 2RF Rx Instructions: As directed (DME) Dexcom G6 Sensor Device See Rx Instructions .Route Qty: 3 2RF Rx Instructions: As directed albuterol sulfate 90 mcg/actuation HFA aerosol inhaler 1 puff inhalation QID Qty: 6.7 3RF (DME) pen needle, diabetic [Easy Comfort Pen [place]] 31 gauge x 1/4 needle See Rx Instructions .Route Qty: 100 0RF Rx Instructions: As directed sildenafil [Viagra] 100 mg tablet 100 mg PO DAILYP PRN (Reason: sexual activity) Rx Instructions: administer 30 minutes to 4 hours before activity lisinopril 5 mg tablet 5 mg PO DAILY Changed insulin glargine [Lantus Solostar U-100 Insulin] 100 unit/mL (3 mL) insulin pen 50 unit SQ DAILY Qty: 15 2RF Discontinued rosuvastatin 10 mg tablet 10 mg PO HS Qty: 30 2RF Problem Reconciliation Problems Reviewed?: Yes Patient Discharge Instructions ACTIVITY: Continue current activity and No heavy lifting DIET: continue same diet Patient Instructions: DI for Chest Pain Print Language: Ma[place] Providers Primary Care Provider: George Dixon Admit Provider: Jose Guadalupe Gan Attending Provider: Jose Guadalupe Gan
[2025-05-29 11:02] LABS: Troponin I < 0.01 ng/ml (0.00-0.034)
[2025-05-29 11:05] LABS: Cholesterol 160 mg/dl (140-200); HDL Cholesterol 66 mg/dl (40-60)
[2025-05-29 11:43] LABS: POC Glucose,Bedside 245 (70-110)
[2025-05-29 12:00] VITALS: PULSE 90
[2025-05-29 12:57] LABS: Hemoglobin A1C 12.5 % (4.0-6.0)
[2025-05-29 16:30] LABS: Triglycerides 742 mg/dl (30-150)
--- NOTE | 2025-05-31 10:00 | SW/DCPLANNER ---
Spoke with patient on the phone. Patient stated that he is doing well. Patient stated that he has not called yet to schedule his follow up appointments but annemarie do that. Patient stated that he was able to get his new medicine picked up from clinic pharmacy. Patient stated that he has no concerns or questions at this time. Jareth Munoz
== END 2025-05-29 12:28 | disposition home or self-care (01) ==
LOC: ER 21:55 → CATHLAB 22:34 → 2ND 23:42
PROVIDERS: Internal Medicine; Admitting Provider Internal Medicine Adolescent Medicine; Emergency Provider Student in an Organized Health Care Education/Training Program; PCP Family Medicine; Visit Provider Internal Medicine Adolescent Medicine
DX: I25.110 Atherosclerotic heart disease of native coronary artery with unstable angina pectoris (principal); E78.5 Hyperlipidemia, unspecified; I10 Essential (primary) hypertension; E11.65 Type 2 diabetes mellitus with hyperglycemia; E66.9 Obesity, unspecified; J44.89 Other specified chronic obstructive pulmonary disease; F17.210 Nicotine dependence, cigarettes, uncomplicated; I45.10 Unspecified right bundle-branch block; I44.0 Atrioventricular block, first degree; R91.8 Other nonspecific abnormal finding of lung field; Z68.39 Body mass index [BMI] 39.0-39.9, adult; Z79.899 Other long term (current) drug therapy; Z79.84 Long term (current) use of oral hypoglycemic drugs; Z79.82 Long term (current) use of aspirin; Z79.4 Long term (current) use of insulin; Z88.5 Allergy status to narcotic agent; Z88.8 Allergy status to other drugs, medicaments and biological substances; Z82.49 Family history of ischemic heart disease and other diseases of the circulatory system; Z86.718 Personal history of other venous thrombosis and embolism
CPT/HCPCS: 96365; 96366; 96376 ×2; 36415; 71275; 80048; 80053; 80061; 81001; 82803; 82962; 83036; 83605; 83880; 84484; 85025; 85730; 86803; 87389; 93005; G0378; J1644; Q9967

== ENCOUNTER 2025-06-06 22:30 | Observation (INO) | payer BC, SELFPAY ==
--- NOTE | 2025-06-06 22:23 | ECG_ITS ---
APPROVED REPORT Exam: Resting ECG HR:80 bpm ECG Measurements Heart Rate 80 AXES MN 210 P 44 QRSd 117 QRS -24 QT 392 T 49 QTc 428 Conclusion SINUS RHYTHM WITH FIRST DEGREE AV BLOCK BORDERLINE LEFT AXIS DEVIATION [QRS AXIS < -20] MODERATE INTRAVENTRICULAR CONDUCTION DELAY [110+ ms QRS DURATION] ABNORMAL ECG UNCONFIRMED REPORT Normal sinus rhythm with first-degree AV block. MN interval mildly elevated 210. No ST elevations or depressions. No T wave inversions Electronically signed by : SIERRA HOLDEN, 06/07/2025 11:11:59
[2025-06-06 22:30] VITALS: BP 117/79; RESP 15; TEMP 36.8; O2SAT 95; BMI 38.0
--- NOTE | 2025-06-06 22:35 | XR_ITS ---
PROCEDURE INFORMATION: Exam: XR Chest Exam date and time: 06/06/2025 10:53 PM Age: 49 years old Clinical indication: Pain; Chest pressure; Additional info: Chest pain TECHNIQUE: Imaging protocol: Radiologic exam of the chest. Views: 1 view. COMPARISON: CT ANGIO CHEST PE PROTOCOL 05/28/2025 10:13 PM FINDINGS: Lungs: Unremarkable. No consolidation. Pleural spaces: Unremarkable. No pleural effusion. No pneumothorax. Heart/Mediastinum: Unremarkable. No cardiomegaly. Bones/joints: Unremarkable. IMPRESSION: No acute findings.
--- OUTSIDE RECORDS SUMMARY | 2025-06-06 22:36 | XMS_ITS | Data Portability ---
Author Organization [facility] Address [address] [place] [address] Assessment No assessment recorded. Plan of Treatment Reminders Order Date Submit Date Provider Last Modified By Organization Details Last Modified Time Details Appointments None recorded. Lab urinalysis , dipstick [address], [address], 4 16:28:58 HbA1c (hemoglobi n A1c), blood [address], [address], 4 16:28:59 Referral None recorded. Procedures None recorded. Surgeries None recorded. Imaging None recorded. Medication Orders None recorded. Patient TargetsNo targets recorded. Patient InstructionsNo instructions recorded. Reason for Referral None Reported. Results Created Date Observation Date Name Description Value Unit Range Abnormal Flag Note LastModifiedBy Organization Detail LastModifiedTime 06/29/2006/29/2024 urina lysis , dipst ick Leukocytes Negati ve Not Available [address], [address], 06/29/2024 12:46:55 06/29/20 24 06/29/2024 urina lysis , dipst ick Nitrite negati ve Not Available [address], [address], 06/29/2024 12:46:55 06/29/2006/29/2024 urina lysis , dipst ick Urobilinogen .2 Not Available [address], [address], 06/29/2024 12:46:55 06/29/20 24 06/29/2024 urina lysis , dipst ick Protein 30 Not Available [address], [address], 06/29/2024 12:46:55 06/29/20 24 06/29/2024 urina lysis , dipst ick pH 6.0 Not Available [address], [address], 06/29/2024 12:46:55 06/29/20 24 06/29/2024 urina lysis , dipst ick Blood Non-He molyze d: Trace Not Available [address], [address], 06/29/2024 12:46:55 06/29/20 24 06/29/2024 urina lysis , dipst ick Specific [place] 1.030 Not Available [address], [address], 06/29/2024 12:46:55 06/29/20 24 06/29/2024 urina lysis , dipst ick Ketone Negati ve Not Available [address], [address], 06/29/2024 12:46:55 06/29/20 24 06/29/2024 urina lysis , dipst ick Bilirubin Negati ve Not Available [address], [address], 06/29/2024 12:46:55 06/29/20 24 06/29/2024 urina lysis , dipst ick Glucose 500 Not Available [address], [address], 06/29/2024 12:46:55 06/29/20 24 06/29/2024 urina lysis , dipst ick Appearance Clear Not Available [address], [address], 06/29/2024 12:46:55 06/29/20 24 06/29/2024 urina lysis , dipst ick Color Yellow Not Available [address], [address], 06/29/2024 12:46:55 06/29/20 24 06/29/2024 HbA1c (hemo globi n A1c), blood HbA1c 10.4 Not Available [address], [address], 06/29/2024 12:46:56 Result Notes None recorded. Problems Name Problem SNOMED Code Status Onset Date Resolution Date Notes Provider Name and Address Organization Details Recorded Time Uncontrol led type 2 diabetes mellitus 798500382 Active 2019 Not Available Count includes the [facility] 2 22:24:15 Tobacco dependenc e caused by cigarette s 180813097542 46142 Active 2019 Problem Code: F17.210; Problem Code Type: ICD-10; Not Available [facility] 2 22:24:15 Hypertens lissette disorder 56177463 Active 2019 Problem Code: I10; Problem Code Type: ICD-10; Not Available [facility] 2 22:24:15 Precordia l pain 61349830 Active 2019 Problem Code: R07.2; Problem Code Type: ICD-10; Not Available Count includes the [facility] 2 22:24:15 Abnormal finding on evaluatio n procedure 230134282 Active 2019 Not Available Count includes the [facility] 2 22:24:15 Finding of body mass index 364801028 Active 2019 Problem Code: Z68.41; Problem Code Type: ICD-10; Not Available Count includes the [facility] 2 22:24:15 Problem Notes None recorded. Medical [...] Updated DateTime 4 180.34 cm 39.4 kg/m2 622553. 49 g 98.4 [degF] 97 /min 94 % 94 % 138/83 mm[Hg] TIFFANY [facility]ARR[facility] [employer] 4 16:13:04 Social History Question Answer Notes LastModified by Organizat ion Details LastModified Time Tobacco Smoking Status Current Every Day Smoker SocialHistor yQuestion: 'Tobacco/Alc ohol/Supplem ents'; SocialHistor yResponse: 'Current Everyday Smoker'; Not Available [facility] 07/31/2022 22:56:29 Is Your Home Air Conditioned? [...] Response Allergies (Food, seasonal, environmental ) Y Diabetes Y Obesity Y COPD Y Past Encounters Encounter ID Performer Location Encounter Start Date Encounter Closed Date Diagnosis/Indication Diagnosis SNOMED-CT Code Diagnosis ICD10 Code Diagnosis Note [id number] Glory Stover APRN [address] [address] 06/29/2024 15:43:40 06/29/2024 16:29:39 Fire Inspector license medical examination [id number] Z02.4 Failed due to A1c 10.4 today. Also has glucose and protein in his urine. Federal guidelines for diabetic drivers reviewed with pt today. He was encouraged to return to his PCP to work on improving Diabetic control. 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 He has DM2, HTN, and COPD. Previous records from PCP reviewed. Glory Stover APRN [address] [place], [address], [facility] 06/29/2024 17:42:54
[2025-06-06 22:45] LABS: Hematocrit 38.3 % (42.0-52.0); Hemoglobin 13.5 g/dL (14.1-18.0); Immature Granulocytes % 0.3 %; Mean Corpuscular HGB Conc 35.2 g/dL (31.8-35.4); Mean Corpuscular Hemoglobin 32.6 pg (27.0-31.2); Mean Corpuscular Volume 92.5 fl (80-94); Nucleated Red Blood Cells % 0 %; Platelet Count 167 K/mm3 (142-424); Red Blood Count 4.14 M/mm3 (4.60-6.20); Red Cell Distribution Width-SD 42.4 fL; White Blood Count 10.0 K/mm3 (4.8-10.8)
[2025-06-06] MEDS: MORPHINE 4MG/ML SYRINGE 4 MG IV (22:57)
[2025-06-06] MEDS: BELLADONNA ALKALOIDS 60 ML ML PO (22:57)
[2025-06-06 23:01] LABS: D-Dimer < 0.25 ug/mL (0.0-0.5)
[2025-06-06 23:05] VITALS: BP 128/75; PULSE 89; RESP 16; O2SAT 96
[2025-06-06 23:10] LABS: Alanine Aminotransferase 28 U/L (12-78); Albumin Level 3.8 g/dl (3.5-5.0); Albumin/Globulin Ratio 1.1 (1.1-1.8); Alkaline Phosphatase 71 U/L (38-126); Anion Gap 20.5 mEq/L (5-15); Aspartate Amino Transferase 46 U/L (17-59); Bilirubin,Total 0.4 mg/dl (0.2-1.3); Blood Urea Nitrogen 11 mg/dl (9-20); Calcium 8.8 mg/dl (8.4-10.2); Carbon Dioxide 18 mmol/L (22.0-30.0); Chloride 98 mmol/L (98-107); Creatinine Clearance Estimated 265 mL/min (50-200); Creatinine,Serum 0.60 mg/dl (0.66-1.25); Estimated Glomerular Filt Rate 143 ml/min (>60); GFR (African American) 173 ML/MIN (>60); Globulin 3.4 g/dL (1.3-3.2); Glucose 323 mg/dl (74-100); Potassium 3.5 mmoL/L (3.5-5.1); Sodium 133 mmol/L (136-145); Total Protein,Serum 7.2 g/dl (6.3-8.2)
--- NOTE | 2025-06-06 23:15 | HMH.EDGENADL ---
Discharge Plan Disposition Chief Complaint: Chest Pain Prescriptions Prescriptions: No Action metformin 500 mg tablet extended release 24 hr 1,000 mg PO BID 90 Days Qty: 120 2RF (DME) blood-glucose meter [Blood Glucose Monitoring] Kit See Rx Instructions .ROUTE .MEDSUPPLY Qty: 1 0RF Rx Instructions: As directed (DME) Blood Glucose Test Strip See Rx Instructions .ROUTE .MEDSUPPLY Qty: 100 2RF Rx Instructions: As directed (DME) lancets [Easy Touch Lancets] 26 gauge misc See Rx Instructions .Route Qty: 100 3RF Rx Instructions: As directed insulin glargine [Lantus Solostar U-100 Insulin] 100 unit/mL (3 mL) insulin pen 50 unit SQ DAILY Qty: 15 2RF metoprolol succinate 25 mg tablet extended release 24 hr 25 mg PO DAILY Qty: 30 2RF (DME) Dexcom G6 Infrastructure Director Misc See Rx Instructions .Route Qty: 1 0RF Rx Instructions: As directed (DME) Dexcom G6 Transmitter Device See Rx Instructions .Route Qty: 1 2RF Rx Instructions: As directed (DME) Dexcom G6 Sensor Device See Rx Instructions .Route Qty: 3 2RF Rx Instructions: As directed albuterol sulfate 90 mcg/actuation HFA aerosol inhaler 1 puff inhalation QID Qty: 6.7 3RF (DME) pen needle, diabetic [Easy Comfort Pen [place]] 31 gauge x 1/4 needle See Rx Instructions .Route Qty: 100 0RF Rx Instructions: As directed aspirin [Adult Aspirin Regimen] 81 mg tablet,delayed release (DR/EC) 81 mg PO DAILY 90 Days Qty: 90 2RF rosuvastatin 20 mg tablet 20 mg PO DAILY Qty: 30 0RF Print Language Print Language: Sinhala Discharge ED Provider: Rasheed Thomason Adult [facility] General Chief complaint: Chest Pain Stated complaint: chest pain Time Seen by Provider: 06/06/25 22:47 Mode of Arrival: Ambulatory Source of Information: Patient Description of Symptoms (Recalled from ER Triage Doc. by RN): pt presents to the ED d/t complaints, of chest pain. pt states started tonight at 1930, was here last week due to same reason. pt complaining of pain in chest 6/10 pain, and soa. pt does not wear o2. pt states he was here last week for same issue and is supposeds to get heart cath with dr. bill. History of Present Illness HPI narrative: Preet Richards is a 49y male with a history of tobacco use, COPD, hypertension, diabetes, high cholesterol who presents the emergency department for complaints of acute onset left-sided chest pain and shortness of breath. Patient states that he was at home getting ready to drink a beer when he developed sharp left-sided chest pain that is tender to touch. He reports no shortness of breath at this time. He denies any worsening cough or hemoptysis. He states that he was seen by cardiology after his last visit and was told that he needs a heart cath, however they are waiting on insurance approval. He states that he was given aspirin and route via EMS but has not been taking it for several days. Related Data Previous Rx's ?Medication ?Instructions ?Recorded blood sugar diagnostic (Blood #100 ea 10/27/24 Glucose Test strips) blood-glucose meter (Blood Glucose #1 ea 10/27/24 Monitoring kit) lancets 26 gauge (Easy Touch #100 ea 10/27/24 Lancets) metformin 500 mg tablet,extended 1,000 mg (2 x 500 mg) PO BID 3 10/27/24 release 24 hr months #120 tabs blood-glucose,upper and bottom lacer hand,cont #1 ea 02/05/25 (Dexcom G6 Infrastructure Director) albuterol sulfate 90 mcg/actuation 1 puff inhalation QID #6.7 grams 02/12/25 aerosol inhaler pen needle, diabetic 31 gauge x #100 ea 02/12/25 1/ (Easy Comfort Pen [place]) blood-glucose sensor (Dexcom G6 #3 ea 04/27/25 Sensor device) blood-glucose transmitter (Dexcom #1 ea 04/27/25 G6 Transmitter device) rosuvastatin 20 mg tablet 20 mg PO DAILY #30 tabs 05/29/25 insulin glargine 100 unit/mL (3 50 unit (0.5 mL) SQ DAILY #15 mL 06/03/25 mL) subcutaneous pen (Lantus Solostar U-100 Insulin) metoprolol succinate 25 mg 25 mg PO DAILY #30 tabs 06/03/25 tablet,extended release 24 hr aspirin 81 mg tablet,delayed 81 mg PO DAILY 90 days #90 tabs 06/04/25 release (Adult Aspirin Regimen) Allergies Allergy/AdvReac Type Severity Reaction Status Date / Time hydrocodone AdvReac Abdominal Verified 06/03/25 10:32 Pain lisinopril AdvReac Nausea Verified 06/03/25 10:32 PFSH PFS Disclaimer: The information contained in this section may have been updated after the patient was seen, as this information can be updated by other users. Medical History (Updated 06/03/25 @ 11:19 by Tere Tidwell APRN) Sinus tachycardia Dizziness SOB (shortness of breath) Abnormal ECG Hypertension Hyperlipidemia Depression Anxiety Asthma Diabetes mellitus Surgical History H/O vasectomy Family History Mother Diabetes Father Coronary artery disease Social History Smoking Status: Never smoker second hand exposure: Yes alcohol intake: current alcohol intake frequency: a few times a week counseling given: Yes counseling provided: provider counseling substance use type: denies use current occupational status: employed Travel in the last 8 weeks?: None household members: family housing: house Have you lived/traveled outside [place] in past 30 days?: No Contact w/someone who lives/traveled outside US past 30 days?: No Exposure to someone with infectious disease in past 14 days?: No Do you have a fever (greater than 100.4 F or 38 C)?: No Have you tested positive for COVID-19?: No Exposed to someone with COVID-19 in past 14 days?: No Do you have a sore throat?: No Do you have a cough?: No Do you have any weakness?: No Do you have any diarrhea?: No Are you experiencing any unusual bleeding?: No Do you have any muscle aches/pain?: No Do you have any abdominal pain?: No Are you experiencing loss of taste or smell?: No Other Medical History Have you received the Flu Vaccine for this season: No Have you received the Pneumonia Vaccine: No ROS Obtained: Yes Systems reviewed as appropriate & no additional complaints except as documented Physical Exam General General appearance: alert, in no apparent distress and obese Head Head exam: atraumatic Eye Eye exam: Present normal appearance ENT ENT exam: Present normal external ear exam Neck Neck exam: Present full ROM Chest Chest inspection: Present symmetric chest wall rise and tenderness (Tenderness over the left anterior chest wall without deformity or skin changes) Respiratory Respiratory exam: Present normal lung sounds bilaterally; Absent respiratory distress, wheezes or stridor Cardiovascular Cardiovascular exam: Present regular rate and normal rhythm Abdominal Exam Abdominal exam: Present soft; Absent tenderness or guarding exam: Present deferred Extremities Exam Extremities exam: Present normal inspection Back Exam Back exam: Present normal inspection Neurological Exam Neurological exam: Present alert and oriented X3 Psychiatric Psychiatric exam: Present normal affect Skin Skin exam: Present warm and dry Medical Decision Making Medical Records Screening: Per USPSTF and CDC recommendations, given the prevalence of disease in our region, it is our hospital?s policy to screen for HIV and viral Hepatitis for all patients aged 18 and over and those with ongoing risk factors. Miguel Inquiry Pt receiving controlled substance: No Vital Signs: 06/06/25 22:30 06/06/25 23:05 06/06/25 23:31 Temperature 98.2 F Temperature Source Oral Pulse Rate 89 94 H Respiratory Rate 15 16 20 Blood Pressure 128/75 156/64 H Blood Pressure [Right Radial Artery] 117/79 Blood Pressure Mean Blood Pressure Mean [Right Radial Artery] 91 Blood Pressure Position [Right Radial Artery] Supine 02 Sat by Pulse Oximetry 95 96 96 Oxygen Delivery Method Room Air 06/07/25 00:02 Temperature Temperature Source Pulse Rate Respiratory Rate Blood Pressure 98/63 L Blood Pressure [Right Radial Artery] Blood Pressure Mean 72 Blood Pressure Mean [Right Radial Artery] Blood Pressure Position [Right Radial Artery] 02 Sat by Pulse Oximetry 98 Oxygen Delivery Method Lab Data Lab Results 06/06/25 22:26: WBC 10.0, RBC 4.14 L, Hgb 13.5 L, Hct 38.3 L, MCV 92.5, MCH 32.6 H, MCHC 35.2, RDW 12.5, Plt Count 167, MPV 9.8, Neut % (Auto) 46.0, Lymph % (Auto) 41.7, Cedar % (Auto) 9.2, Eos % (Auto) 2.2, Baso % (Auto) 0.6, Neut # (Auto) 4.6, Lymph # (Auto) 4.2, Cedar # (Auto) 0.9, Eos # (Auto) 0.2, Baso # (Auto) 0.1, D-Dimer < 0.25, Sodium 133 L, Potassium 3.5, Chloride 98, Carbon Dioxide 18 L, Anion Gap 20.5 H, BUN 11, Creatinine 0.60 L, Estimated Creat Clear 265, Estimated GFR 143, Est GFR ( Amer) 173, Glucose 323 H, Calcium 8.8, Total Bilirubin 0.4, AST 46, ALT 28, Alkaline Phosphatase 71, Troponin I < 0.01, Total Protein 7.2, Albumin 3.8, Globulin 3.4 H, Albumin/Globulin Ratio 1.1 06/06/25 22:26 06/06/25 22:26 Orders (Tests/Meds): ED MEDICATIONS Discontinued Medications Generic Name Dose Route Start Last Admin Trade Name Freq PRN Reason Stop Dose Admin Belladonna Alkaloids 60 ml 06/06/25 22:54 06/06/25 22:57 Belladonna Alkaloids 60 Ml Ml PO 06/06/25 22:55 60 ml ONCE ONE Administration Morphine Sulfate 4 mg 06/06/25 22:53 06/06/25 22:57 Morphine 4mg/Ml Syringe IV 06/06/25 22:54 4 mg ONCE ONE Administration ORDERS Category Date Time Status Chest XR -- portable [XR chest portable] Stat Exams 06/06/25 22:35 Completed Acetone, Serum (Rapid) Stat Lab 06/07/25 00:44 Ordered CBC w/Auto Diff [Complete Blood Count Auto Diff] Stat Lab 06/06/25 22:26 Completed CMP [Comprehensive Metabolic Panel] Stat Lab 06/06/25 22:26 Completed D-Dimer Stat Lab 06/06/25 22:26 Completed Troponin I Q3H Lab 06/07/25 01:45 Ordered Troponin I Q3H Lab 06/07/25 04:45 Ordered Troponin I Stat Lab 06/06/25 22:26 Completed VBG [Venous Blood Gas] Stat RT 06/07/25 00:44 Ordered 12-lead EKG Request [ECG Request] Stat Y 06/06/25 22:37 Ordered Medical Decision Narrative: Preet Richards is a 49y male with a history of tobacco use, COPD, hypertension, diabetes, high cholesterol who presents the emergency department for complaints of acute onset left-sided chest pain and shortness of breath. Patient states that he was at home getting ready to drink a beer when he developed sharp left-sided chest pain that is tender to touch. He reports no shortness of breath at this time. He denies any worsening cough or hemoptysis. He states that he was seen by cardiology after his last visit and was told that he needs a heart cath, however they are waiting on insurance approval. He states that he was given aspirin and route via EMS but has not been taking it for several days. On arrival, patient is normotensive, afebrile, breathing comfortably on room air with oxygen saturation 95% SpO2. Heart rate within normal limits. Physical exam, as stated above, revealed an overall well-appearing male who is nontoxic. Cardiopulmonary exam is unremarkable with no wheezing, rales or rhonchi. No murmurs. He has reproducible left-sided chest wall tenderness to palpation without deformity, step-off or skin changes. Abdomen is soft, nontender nondistended. He does not appear to have any significant edema to his bilateral lower extremities. Differential diagnosis includes, but is not limited to: ACS, pulmonary embolism, costochondritis, pleurisy, pneumonia, pneumothorax, among others. The most morbid conditions were considered and workup was based on these. Workup in the emergency department included: EKG, chest x-ray, D-dimer, troponin, CBC, CMP Chest x-ray interpreted by me personally. No focal consolidation, no widening of the mediastinum, no pneumothorax. See radiology report for details. EKG without STEMI or acute ischemic changes. Normal sinus rhythm. Unchanged from previous EKG Laboratory studies at this time showed no leukocytosis, no anemia, D-dimer negative. Mildly low sodium of 133, anion gap elevated 20.5 and glucose elevated at 323 (will obtain VBG and acetone level to rule out DKA). No CONRAD. Initial troponin less than 0.01 and low concern for cardiac ischemia based on patient's reproducible symptoms and reassuring EKG. Will obtain repeat troponin to ensure no evidence of ischemia. Patient was treated with 4 mg IV morphine as well as a GI cocktail. At this time, patient's case handed off to the oncoming physician, Dr. Grissom, pending patient's second troponin, VBG and acetone and reassessment. Critical Care Critical Care Time Critical Care Time: No
[2025-06-06 23:24] LABS: Troponin I < 0.01 ng/ml (0.00-0.034)
[2025-06-06 23:31] VITALS: BP 156/64; PULSE 94; RESP 20; O2SAT 96
[2025-06-07] VITALS (22 sets, daily range): BP systolic 97–161; BP diastolic 55–95; PULSE 63–91; RESP 14–25; TEMP 36.7–36.8; O2SAT 95–100; BMI 31.0
[2025-06-07 01:11] LABS: Acetone, Serum (Rapid) None Detected (None Detect)
[2025-06-07 01:45] LABS: VBG HCO3 22.9 mmol/L (23-30); VBG PCO2 39.7 mmol/L (35-51); VBG PH 7.38 mmol/L (7.31-7.41); VBG PO2 94.7 mmol/L (28-40)
[2025-06-07 01:49] LABS: Lactate Venous 3.4 mmol/L (0.4-2.0)
[2025-06-07] MEDS: LACTATED RINGERS 1000ML 1,000 ML 999 ML IV (02:05)
[2025-06-07 02:12] LABS: Troponin I < 0.01 ng/ml (0.00-0.034)
--- NOTE | 2025-06-07 03:01 | P.HP_ITS ---
<Statement entered by Ramy Flynn MD - 06/07/25 16:16> Personally evaluated patient and agree with plan of care as outlined by the BELLOWS ASSEMBLER. History of Present Illness *Admission Date: 06/07/25 *Reason for visit:: Continued chest pain, uncontrolled diabetes mellitus, chest wall pain, *History of present illness: Mr. Richards was recently in the hospital proximately 05/29/2025. Noted at this time of having left chest wall pain which is still present. Patient also noted with a hemoglobin A1c of 12.5. Patient remained with normal troponins at that time and was released.. The patient has been working to get his insurance to improve a cardiac catheterization. Patient has continued with this left chest wall pain.. Also noting that he has significant peripheral neuropathy to light touch the pain is 8 out of 10. Patient has been a smoker since he has been a teenager has slowed down over the last week though. Noting that his weight approximately 2 years ago was up to 342 pounds he is now 280. Last hemoglobin A1c was 12.5. Patient does take a large amount of metformin also on Lantus, he is on an anticholesterol medication his last lipids actually were very good though.. For the left-sided chest wall pain there is no known cause.. 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 , [facility] Disclaimer: The information contained in this section may have been updated after the patient was seen, as this information can be updated by other users. Medical History (Updated 06/07/25 @ 03:39 by Florian Fang APRN) Exposure to COVID-19 virus Tobacco abuse Upper respiratory infection, viral Contact dermatitis Neck Pain Chest pain Uncontrolled diabetes mellitus Left-sided chest wall pain Diabetic peripheral neuropathy Sinus tachycardia Dizziness SOB (shortness of breath) Abnormal ECG Hypertension Hyperlipidemia Depression Anxiety Asthma Diabetes mellitus Surgical History H/O vasectomy Family History Mother Diabetes Father Coronary artery disease Social History (Updated 06/07/25 @ 03:15 by Florian Fang APRN) Smoking Status: Current every day smoker smoking status start date: 1989 smoked: 30 second hand exposure: Yes alcohol intake: current alcohol intake frequency: a few times a week counseling given: Yes counseling provided: provider counseling substance use type: denies use current occupational status: employed Travel in the last 8 weeks?: None household members: family housing: house Other Medical History Have you received the Flu Vaccine for this season: No Have you received the Pneumonia Vaccine: No Review of Systems Review of Systems Review of systems:: pertinent systems reviewed and negative unless documented below Constitutional Constitutional: Reports as per HPI and Reports weight loss (60 pound weight loss in the last 2 years) Eyes Eyes: Reports as per HPI ENT Ears, Nose, Mouth, and Throat: Reports as per HPI *Cardiovascular Cardiovascular: Reports as per HPI, Reports chest pain and Reports chest pain at rest *Respiratory Respiratory: Reports as per HPI *Gastrointestinal Gastrointestinal: Reports as per HPI *Genitourinary Genitourinary: Reports as per HPI *Musculoskeletal Musculoskeletal: Reports as per HPI and Reports tingling Integumentary/Breasts Skin/Breast: Reports as per HPI *Neurologic Neurologic: Reports as per HPI, Reports radicular pain and Reports tingling Comments: Severe bilateral diabetic peripheral neuropathy Psychiatric Psychiatric: Reports as per HPI Endocrine Endocrine: Reports as per HPI Hematologic/Lymphatic Hematologic/Lymphatic: Reports as per HPI Allergic/Immunologic Allergic/Immunologic: Reports as per HPI Meds Home Medications and Allergies Home Medications ?Medication ?Instructions ?Recorded ?Confirmed ?Type blood sugar diagnostic (Blood #100 ea 10/27/24 5 Rx Glucose Test strips) blood-glucose meter (Blood Glucose #1 ea 10/27/2405/25 Rx Monitoring kit) lancets 26 gauge (Easy Touch #100 ea 10/27/24 05/29/25 Rx Lancets) metformin 500 mg tablet,extended 1,000 mg (2 x 500 mg) PO BID 3 10/27/24 06/03/25 Rx release 24 hr months #120 tabs blood-glucose,php website developer,cont #1 ea 02/05/25 05/29/25 Rx (Dexcom G6 Mapping Analyst) albuterol sulfate 90 mcg/actuation 1 puff inhalation Q ID #6.7 grams 02/12/25 06/03/25 Rx aerosol inhaler pen needle, diabetic 31 gauge x #100 ea 02/12/2505/29 Rx 1/4 (Easy Comfort Pen [place]) blood-glucose sensor (Dexcom G6 #3 ea 04/27/25 5 Rx Sensor device) blood-glucose transmitter (Dexcom #1 ea 04/27/2506/03 Rx G6 Transmitter device) rosuvastatin 20 mg tablet 20 mg PO DAILY #30 tabs 04/1806/03/25 Rx insulin glargine 100 unit/mL (3 50 unit (0.5 mL) SQ DA PATRICIA #15 mL 06/03/25 06/03/25 Rx mL) subcutaneous pen (Lantus Solostar U-100 Insulin) metoprolol succinate 25 mg 25 mg PO DAILY #30 tabs 09/1806/03/25 Rx tablet,extended release 24 hr aspirin 81 mg tablet,delayed 81 mg PO DAILY 90 days #9 0 tabs 06/04/25 Rx release (Adult Aspirin Regimen) New Prescriptions to Start Prescriptions: Allergies Allergy/AdvReac Type Severity Reaction Status Date / Time hydrocodone AdvReac Abdominal Verified 06/03/25 10:32 Pain lisinopril AdvReac Nausea Verified 06/03/25 10:32 Exam Data for Last 24 hours Vital signs and Labs for Last 24 Hours: Temp Pulse Resp BP Pulse Ox O2 Del Method 98.2 F 83 25 H 108/71 L 96 Room Air 06/06/25 22:30 06/07/25 01:30 06/07/25 01:30 06/07/25 01:30 06/07/25 01:30 06/06/25 22:30 Laboratory Results - last 24 hr 06/06/25 22:26: WBC 10.0, RBC 4.14 L, Hgb 13.5 L, Hct 38.3 L, MCV 92.5, MCH 32.6 H, MCHC 35.2, RDW 12.5, Plt Count 167, MPV 9.8, Neut % (Auto) 46.0, Lymph % (Auto) 41.7, Motley % (Auto) 9.2, Eos % (Auto) 2.2, Baso % (Auto) 0.6, Neut # (Auto) 4.6, Lymph # (Auto) 4.2, Motley # (Auto) 0.9, Eos # (Auto) 0.2, Baso # (Auto) 0.1, D-Dimer < 0.25, Sodium 133 L, Potassium 3.5, Chloride 98, Carbon Dioxide 18 L, Anion Gap 20.5 H, BUN 11, Creatinine 0.60 L, Estimated Creat Clear 265, Estimated GFR 143, Est GFR ( Amer) 173, Glucose 323 H, Calcium 8.8, Total Bilirubin 0.4, AST 46, ALT 28, Alkaline Phosphatase 71, Troponin I < 0.01, Total Protein 7.2, Albumin 3.8, Globulin 3.4 H, Albumin/Globulin Ratio 1.1 06/07/25 00:44: VBG pH 7.38, VBG pCO2 39.7, VBG pO2 94.7 H, VBG HCO3 22.9 L, VBG Total CO2 24.1, VBG O2 Saturation 96.6 H, VBG Base Excess -2.2, VBG Lactic Acid 3.4 H 06/07/25 01:06: Acetone Level None detected 06/07/25 01:36: Troponin I < 0.01 I & O for Last 24 hours: Intake & Output 06/04/25 06/05/25 06/06/25 06/07/25 05:59 05:59 05:59 05:59 Weight 280 lb Radiology Reports for the Last 24 Hours: Imaging not done this visit ER visit Constitutional Constitutional: moderate distress, obese and cooperative Comments: Slightly sedated from pain medicine *Routine HEENT Exam Head: Present normocephalic and atraumatic Eye: Present EOMI and PERRL ENT: Present mucous membranes moist *Routine Neck Exam Neck: Present supple and full ROM Routine Chest/Breast/Axilla Exam Chest wall: Present tenderness (Tenderness to light touch of left pectoral muscle) Breast: Present tenderness (Tenderness of left breast chest wall to light touch) Comments: There was no sign of injury to the chest wall left chest wall or axillary area. But pain was significant to light touch very similar to the pain that he has in his lower legs.. Pain in the legs is actually more severe than the left chest wall to light touch *Routine Respiratory Exam Respiratory: Present CTA bilaterally, normal respiratory effort, able to speak in complete sentences and symmetric chest movement *Routine Cardiovascular Exam Cardiovascular: Present RRR, Normal S1 and Normal S2 *Routine Abdominal Exam Abdominal: Present soft, normoactive bowel sounds and obese Comments: No tenderness found on abdominal exam *Routine Rectal Exam Rectal:: deferred *Routine Genitalia Exam Genitalia:: deferred *Routine Extremities Exam Extremities: Present full ROM, normal capillary refill and tenderness (Severe tenderness to both lower extremities) Comments: Severe pain with light touch to both lower extremities Routine Back/Spine/Pelvis Exam Back/Spine: Present full ROM *Routine Skin Exam Skin: Present intact, dry and warm *Routine Neurological Exam Neurological: Present alert, oriented X3, CN II-XII intact, moving all extremities, vision grossly intact and hearing grossly intact Routine Psychiatric Exam Psychiatric: Present normal affect Comments: Is in pain does not feel well, Detailed Chest Wall Exam Torso front/back image: 2 1. area of pain to light touch Comments: Pain is not costochondral parietal junction tenderness the pain is to light touch to the skin H&P: Result Impressions Chest pain: Unknown cause has 2 types of chest pain 1 being cardiac, the other 1 beiing diabetic neuropathy to the left chest wall that is similar to his bilateral lower extremity neuropathy and pain to light touch Hemoglobin A1c 12.5 also a smoker. Assessment and Plan *Assessment and plan (1) Uncontrolled diabetes mellitus: Status: Acute Qualifiers: Diabetes mellitus type: type 2 Glycemic state: with hyperglycemia Q ualified Code(s): E11.65 - Type 2 diabetes mellitus with hyperglycemia Category: Medical (2) Left-sided chest wall pain: Status: Acute Category: Medical Code(s): R07.89 - Other chest pain (3) Unstable angina: Status: Acute Category: Medical Code(s): I20.0 - Unstable angina (4) Chest pain: Status: Acute Qualifiers: Chest pain type: other chest pain Qualified Code(s): R07.89 - Other chest pain Category: Medical Code(s): R07.9 - Chest pain, unspecified (5) Diabetic peripheral neuropathy: Status: Acute Category: Medical Code(s): E11.42 - Type 2 diabetes mellitus with diabetic polyneuropathy (6) Tobacco abuse: Status: Acute Category: Medical Code(s): Z72.0 - Tobacco use Plan 1. Patient will be admitted, reason is to evaluate for any cardiac cause for this chest wall pain. Ruling out any type of myocarditis and/or cardiovascular disease. Patient noted for his uncontrolled diabetes and smoking that could contribute to both potential causes. Patient is showing signs and symptoms of peripheral neuropathy to the left pectoral muscle and chest. 2. Tobacco abuse, has been smoking for 30 years 3, diabetes mellitus with poor control hemoglobin A1c normally 9 as high as 12.5. It is noted that the patient from a couple years ago has lost from about 348 pounds down to 280. 4. Cardiology consult has been placed, echocardiogram ordered
[2025-06-07] MEDS: KETOROLAC 30MG/ML VIAL 15 MG IV (03:58)
--- NOTE | 2025-06-07 04:12 | PC.NURSE ---
Pt admitted from ER transported via WC. Pt A&O x4. Pt tolerates RA but placed on 2L/NC rt chest pain. Pt placed on telemetry monitoring. Pt complained of low pain, pt medicated per JAN. Pt is NPO. Pt voicing no further concerns at this time. Pt resting w/ call light in reach. Plan of care ongoing.
[2025-06-07 05:21] LABS: POC Glucose,Bedside 230 (70-110)
--- NOTE | 2025-06-07 05:22 | ECG_ITS ---
APPROVED REPORT Exam: Resting ECG HR:68 bpm ECG Measurements Heart Rate 68 AXES [place] 209 P 33 QRSd 122 QRS -14 QT 441 T 32 QTc 458 Conclusion SINUS RHYTHM MODERATE INTRAVENTRICULAR CONDUCTION DELAY [110+ ms QRS DURATION] BORDERLINE ECG UNCONFIRMED REPORT Electronically signed by : Ricardo Mayen MD 06/09/2025 16:18:11
[2025-06-07] MEDS: POTASSIUM CHLORIDE 20MEQ TAB 40 MEQ PO ×2 (05:30→08:58)
[2025-06-07] MEDS: humaLOG 100 UNITS/ML 10ML VIAL (SSI) SUBCUT (05:31)
[2025-06-07 05:45] LABS: Troponin I < 0.01 ng/ml (0.00-0.034)
[2025-06-07 05:47] LABS: Reflex Lactic Add Lactic Reflex
--- NOTE | 2025-06-07 06:48 | CA_ITS ---
APPROVED REPORT EXAM: Comprehensive 2D, Doppler, and color-flow Echocardiogram Early Education Teacher: Karina Castano CRT Ht: 6 ft 0 in Wt: 280lbs BSA: 2.46 BP: 108/71 mmHg Indications: Chest Pain, Shortness of Breath, Diabetes, Hyperlipidemia, Hypertension/HDD 2D Dimensions LA Volume 54.90 mL LA Volume Index 22.32 mL/m2 (M/F) 16-34 M-Mode Dimensions RVDd 2.28 cm (0.9-2.6) LA Diam 3.88 cm (1.9-4.0) LVDd 5.45 cm (3.5-5.7) LVDs 3.96 cm (3.5-5.7) IVSd 1.52 cm (0.6-1.1) PWd 0.97 cm (0.6-1.1) EF (Teich) 52.70% FS 27.30% EDV (Teich) 144.40 mL TAPSE 2.78 (<1.7) ESV (Teich) 68.30 mL LV Diastology E Decel Time 160 (160-240 msec) E/A Ratio 1.37 MED A' 6.00 cm/s LAT A' 7.50 cm/s Aortic Valve AO Peak GR. 5.40 mmHg Mitral Valve MV A Velocity 60.0 (40-130 cm/s) E/A Ratio 1.37 Pulmonary Valve PV Peak Velocity 129.0 (50-150 cm/s) Tricuspid Valve TR P. Velocity 239.00 cm/s RAP Estimate 10.00 mmHg RVSP 32.90 mmHg Left Ventricle The left ventricle is normal size. The left ventricular systolic function is normal. The left ventricular ejection fraction is within the normal range. There is normal left ventricular wall thickness. There is normal LV segmental wall motion. The left ventricular diastolic function is normal. LVEF is 55%. Right Ventricle The right ventricle is normal size. The right ventricular systolic function is normal. Atria The left atrium size is normal. The right atrium size is normal. There is no Doppler evidence of interatrial shunt. Aortic Valve Aortic valve opens well. There is no aortic valvular stenosis. No aortic regurgitation is present. Mitral Valve The mitral valve is normal in structure. No evidence of mitral valve stenosis. Trace mitral regurgitation. Tricuspid Valve Tricuspid valve is grossly normal in structure and function. Trace tricuspid regurgitation. There is insufficient TR jet to estimate RVSP. Pulmonic Valve The pulmonary valve is normal in structure. Mild pulmonic regurgitation. Great Vessels The aortic root is normal in size. IVC is normal in size and collapses >50% with inspiration. Pericardium There is no pericardial effusion. Other Information Study Quality: Fair Conclusion Normal biventricular systolic function. Mild PI. Electronically signed by : Sandra Samayoa MD 06/07/2025 11:54:30
[2025-06-07 07:02] LABS: Lactic Acid Follow Up (RFLX 1) 2.5 mmol/L (0.7-2.1)
[2025-06-07 08:21] LABS: Reflex Lactic (2 hrs) Add Lactic Reflex
--- NOTE | 2025-06-07 08:36 | ECG_ITS ---
APPROVED REPORT Exam: Resting ECG HR:56 bpm ECG Measurements Heart Rate 56 AXES AK 206 P 20 QRSd 120 QRS -7 QT 455 T 33 QTc 446 Conclusion SINUS BRADYCARDIA with First degree AV block MODERATE INTRAVENTRICULAR CONDUCTION DELAY [110+ ms QRS DURATION] BORDERLINE ECG UNCONFIRMED REPORT Electronically signed by : Ricardo Mayen MD 06/09/2025 16:18:06
[2025-06-07 08:50] LABS: Lactic Acid Follow up (RFLX 2) 2.0 mmol/L (0.7-2.1)
[2025-06-07] MEDS: METOPROLOL SUCCINATE XL 25MG TABLET 25 MG PO (08:58)
[2025-06-07] MEDS: ASPIRIN EC 81MG TABLET 81 MG PO (08:58)
--- NOTE | 2025-06-07 09:02 | EXP.CARD.CON ---
History of Present Illness History of Present Illness Consult date: 06/07/25 Requesting physician: Ramy Flynn Consult reason: chest pain Chief complaint: chest pain Additional Medical History:: 1. Diabetes mellitus, poorly controlled A. On oral and insulin medication B. Hemoglobin A1c is 12.5, 05/2025 2. Tobacco use since a teenager 3. Family history of early coronary artery disease 4. Hypertension 5. Hyperlipidemia 6. Obesity A. Weight loss from 348 pounds down to current weight of 229 pounds, 05/2025 History of present illness: 49-year-old white male admitted for the second time this month for recurrent left-sided chest pain with exertion. Despite normal troponins and no acute changes on EKG patient is felt to be high risk for coronary artery disease in light of his uncontrolled diabetes, hypertension, hyperlipidemia and tobacco use with strong family history of early coronary artery disease. Cardiology consulted for evaluation. Recommendation for left heart catheterization is made and patient wishes to proceed. [facility] Disclaimer: The information contained in this section may have been updated after the patient was seen, as this information can be updated by other users. Medical History COPD (chronic obstructive pulmonary disease) Tobacco abuse Uncontrolled diabetes mellitus Left-sided chest wall pain Diabetic peripheral neuropathy Sinus tachycardia Dizziness SOB (shortness of breath) Abnormal ECG Chest pain Neck Pain Contact dermatitis Hypertension Hyperlipidemia Depression Anxiety Asthma Diabetes mellitus Upper respiratory infection, viral Exposure to COVID-19 virus Surgical History H/O vasectomy Family History Mother Diabetes Father Coronary artery disease Social History Smoking Status: Current every day smoker smoking status start date: 1989 smoked: 30 second hand exposure: Yes alcohol intake: current alcohol intake frequency: a few times a week counseling given: Yes counseling provided: provider counseling substance use type: denies use current occupational status: employed Travel in the last 8 weeks?: None household members: family housing: house Have you lived/traveled outside [place] in past 30 days?: No Contact w/someone who lives/traveled outside US past 30 days?: No Exposure to someone with infectious disease in past 14 days?: No Do you have a fever (greater than 100.4 F or 38 C)?: No Have you tested positive for COVID-19?: No Exposed to someone with COVID-19 in past 14 days?: No Do you have a sore throat?: No Do you have a cough?: No Do you have any weakness?: No Do you have any diarrhea?: No Are you experiencing any unusual bleeding?: No Do you have any muscle aches/pain?: No Do you have any abdominal pain?: No Are you experiencing loss of taste or smell?: No Review of Systems Review of Systems Review of systems:: pertinent systems reviewed and negative unless documented below *Cardiovascular Cardiovascular: Reports chest pain, Reports chest pain with activity and Reports dyspnea on exertion *Respiratory Respiratory: Reports dyspnea on exertion *Musculoskeletal Musculoskeletal: Reports tingling *Neurologic Neurologic: Reports as per HPI, Reports radicular pain and Reports tingling Exam Data for Last 24 hours Vital signs and Labs for Last 24 Hours: Temp Pulse Resp BP Pulse Ox O2 Del Method O2 Flow Rate 98.1 F 63 19 108/71 L 98 Nasal Cannula 2 06/07/25 08:00 06/07/25 08:00 06/07/25 08:00 06/07/25 08:00 06/07/25 08:00 06/07/25 08:00 06/07/25 08:00 Laboratory Results - last 24 hr 06/06/25 22:26: WBC 10.0, RBC 4.14 L, Hgb 13.5 L, Hct 38.3 L, MCV 92.5, MCH 32.6 H, MCHC 35.2, RDW 12.5, Plt Count 167, MPV 9.8, Neut % (Auto) 46.0, Lymph % (Auto) 41.7, [place] % (Auto) 9.2, Eos % (Auto) 2.2, Baso % (Auto) 0.6, Neut # (Auto) 4.6, Lymph # (Auto) 4.2, [place] # (Auto) 0.9, Eos # (Auto) 0.2, Baso # (Auto) 0.1, D-Dimer < 0.25, Sodium 133 L, Potassium 3.5, Chloride 98, Carbon Dioxide 18 L, Anion Gap 20.5 H, BUN 11, Creatinine 0.60 L, Estimated Creat Clear 265, Estimated GFR 143, Est GFR ( Amer) 173, Glucose 323 H, Calcium 8.8, Total Bilirubin 0.4, AST 46, ALT 28, Alkaline Phosphatase 71, Troponin I < 0.01, Total Protein 7.2, Albumin 3.8, Globulin 3.4 H, Albumin/Globulin Ratio 1.1 06/07/25 00:44: VBG pH 7.38, VBG pCO2 39.7, VBG pO2 94.7 H, VBG HCO3 22.9 L, VBG Total CO2 24.1, VBG O2 Saturation 96.6 H, VBG Base Excess -2.2, VBG Lactic Acid 3.4 H 06/07/25 01:06: Acetone Level None detected 06/07/25 01:36: Troponin I < 0.01 06/07/25 05:05: POC Glucose 230 H 06/07/25 05:08: Lactate 2.5 H, Troponin I < 0.01 06/07/25 08:34: Lactate 2.0 I & O for Last 24 hours: Intake & Output 06/04/25 06/05/25 06/06/25 06/07/25 11:59 11:59 11:59 11:59 Weight 229 lb Constitutional Constitutional: no acute distress *Routine Respiratory Exam Respiratory: Present decreased breath sounds and CTA bilaterally; Absent rhonchi or wheezes *Routine Cardiovascular Exam Cardiovascular: Present RRR; Absent murmur, gallop or rubs *Routine Neurological Exam Neurological: Present alert, oriented X3 and CN II-XII intact Meds Home Medications and Allergies Home Medications ?Medication ?Instructions ?Recorded ?Confirmed ?Type blood sugar diagnostic (Blood #100 ea 10/27/24 06/07/25 Rx Glucose Test strips) blood-glucose meter (Blood Glucose #1 ea 10/27/24 06/07/25 Rx Monitoring kit) lancets 26 gauge (Easy Touch #100 ea 10/27/24 06/07/25 Rx Lancets) blood-glucose,hoop riveting machine operator helper,cont #1 ea 02/05/25 06/07/25 Rx (Dexcom G6 Document Image Technician) pen needle, diabetic 31 gauge x #100 ea 02/12/25 06/07/25 Rx 1/4 (Easy Comfort Pen Dysart) blood-glucose sensor (Dexcom G6 #3 ea 04/27/25 06/07/25 Rx Sensor device) blood-glucose transmitter (Dexcom #1 ea 04/27/25 06/07/25 Rx G6 Transmitter device) rosuvastatin 20 mg tablet 20 mg PO DAILY #30 tabs 05/29/25 06/07/25 Rx insulin glargine 100 unit/mL (3 50 unit (0.5 mL) SQ DAILY #15 mL 06/03/25 06/07/25 Rx mL) subcutaneous pen (Lantus Solostar U-100 Insulin) metoprolol succinate 25 mg 25 mg PO DAILY #30 tabs 06/03/25 06/07/25 Rx tablet,extended release 24 hr aspirin 81 mg tablet,delayed 81 mg PO DAILY 90 days #90 tabs 06/04/25 06/07/25 Rx release (Adult Aspirin Regimen) albuterol sulfate 90 mcg/actuation 1 puff inhalation QIDP PRN 06/07/25 06/07/25 History aerosol inhaler Shortness Of Breath fluticasone fur. 100 mcg-umeclid 1 inh inhalation DAILY 06/07/25 06/07/25 History 62.5 mcg-vilant 25 mcg inhalat.powder (Trelegy Ellipta) metformin 500 mg tablet,extended 500 mg PO BID 06/07/25 06/07/25 History release 24 hr New Prescriptions to Start Prescriptions: Allergies Allergy/AdvReac Type Severity Reaction Status Date / Time hydrocodone AdvReac Abdominal Verified 06/03/25 10:32 Pain lisinopril AdvReac Nausea Verified 06/03/25 10:32 Assessment and Plan *Assessment and plan (1) Chest pain: Status: Acute Qualifiers: Chest pain type: other chest pain Qualified Code(s): R07.89 - Other chest pain Category: Medical Code(s): R07.9 - Chest pain, unspecified (2) Unstable angina: Status: Acute Category: Medical Code(s): I20.0 - Unstable angina (3) Tobacco abuse: Status: Acute Category: Medical Code(s): Z72.0 - Tobacco use (4) Uncontrolled diabetes mellitus: Status: Acute Qualifiers: Diabetes mellitus type: type 2 Glycemic state: with hyperglycemia Qualified Code(s): E11.65 - Type 2 diabetes mellitus with hyperglycemia Category: Medical (5) Hyperlipidemia: Status: Acute Qualifiers: Hyperlipidemia type: other hyperlipidemia Qualified Code(s): E78.49 - Other hyperlipidemia Category: Medical Code(s): E78.5 - Hyperlipidemia, unspecified (6) Hypertension: Status: Acute Qualifiers: Hypertension type: primary hypertension Qualified Code(s): I10 - Essential (primary) hypertension Category: Medical Code(s): I10 - Essential (primary) hypertension (7) Obesity (BMI 30-39.9): Status: Acute Category: Medical Code(s): E66.9 - Obesity, unspecified Plan 1. Recurrent admissions for chest pain -normal troponins -multiple cardiac risk factors (HTN, HLD, DM, tobacco) -plan to proceed with [facility] today -Continue aspirin and metoprolol -Add Ranexa 500 mg twice daily 2. Tobacco use -Cessation recommended 3. Diabetes mellitus, hemoglobin A1c 12.5 recently despite combo of metformin and insulin -Triglycerides 742 this month - Recommend adding Vascepa 2 g twice daily 4. Family history of early coronary artery disease 5. Hypertension 6. Hyperlipidemia -On rosuvastatin -LDL 45 7. Obesity -BMI 31 Cardiac cath today revealed moderate disease of LAD and first OM for which medical therapy is recommended. Strongly recommend getting his diabetes under better control, this would also help his triglycerides. Patient can be discharged home later today from a cardiac standpoint. Medication recommendations: Aspirin 81 mg daily Metoprolol succinate 25 mg daily Rosuvastatin 20 mg daily Vascepa 2 g twice daily Ranexa 500 mg twice daily Follow-up in our office in 1 to 2 weeks.
--- NOTE | 2025-06-07 09:48 | IR_ITS ---
APPROVED REPORT Patient Location: Inpatient Stone Fabricator: RHINA Pike RT (R) PROCEDURES Left heart catheterization Left ventriculogram Selective coronary angiogram INDICATION Unstable angina Informed consent was obtained prior to the procedure. COMPLICATIONS none Estimated Blood Loss: less than 10ml TECHNIQUE One percent lidocaine used to anesthetize the right anterior aspect of the wrist. The right radial artery was accessed via the Seldinger technique. A 6 Czech sheath was placed in the right radial artery. 2.5 mg of Verapamil, 800 mcg of nitroglycerin, 1mg Lidocaine and 5000 U Heparin were given through the arterial sheath. The JL3 catheter was also used to perform left heart catheterization, left ventriculogram and selective coronary angiogram. At the end of the procedure the sheath was removed good hemostasis was achieved using Traclet band, patient was transferred to the postop holding area in stable condition. ANGIOGRAPHIC RESULTS The left main artery Normal The left anterior descending artery Has proximal 30% stenosis with additional mid vessel 30% stenosis followed by a distal 50% stenosis and a 2 mm diameter LAD segment The circumflex artery Large and dominant with smooth 20% proximal stenosis and a 50% stenosis in the ostial proximal segment of a 3.5 mm first obtuse marginal artery in which the stenosis is immediately adjacent to a medium sized second obtuse marginal artery The right coronary artery Nondominant normal The ACEVEDO ventriculogram reveals Normal 65% The left ventricular end-diastolic pressure 15 mmHg IMPRESSION Moderate disease in the LAD as described above Moderate disease in the ostial segment of a 3.5 mm in diameter first obtuse marginal artery in which stenting would cause impingement/plaque shift into the second diagonal artery Normal ejection fraction Normal LVEDP PLAN 1. Strongly recommend medical management at this point 2. Hemoglobin A1c is 12 and requires tighter control 3. I am reluctant to stent the first obtuse marginal artery as this would require stenting of the proximal dominant circumflex artery extending into the first obtuse marginal artery and would likely cause plaque shift requiring additional stenting and bifurcating stenting in the second obtuse marginal artery. Because patient is not on adequate medical therapy and has poorly controlled diabetes with ongoing smoking I believe he would respond more favorably to medical management 4. LDL less than 55 to be achieved with high intensity statin 5. Maximize antianginal medications Electronically signed by : Nagi Faulkner MD 06/07/2025 12:07:15
[2025-06-07 10:00] LABS: Chloride 101 mmol/L (98-107)
[2025-06-07 10:01] LABS: Potassium 3.5 mmoL/L (3.5-5.1); Sodium 135 mmol/L (136-145)
[2025-06-07 10:03] LABS: Blood Urea Nitrogen 11 mg/dl (9-20); Creatinine Clearance Estimated 216 mL/min (50-200); Creatinine,Serum 0.60 mg/dl (0.66-1.25); Estimated Glomerular Filt Rate 143 ml/min (>60); GFR (African American) 173 ML/MIN (>60)
[2025-06-07 10:04] LABS: Anion Gap 14.5 mEq/L (5-15); Calcium 7.9 mg/dl (8.4-10.2); Carbon Dioxide 23 mmol/L (22.0-30.0); Glucose 237 mg/dl (74-100)
--- NOTE | 2025-06-07 10:04 | HMH.PTEV ---
Physical Therapy Evaluation Rehab PT IP Evaluation Start: 06/07/25 09:52 Freq: ONCE Status: Active Protocol: Document 06/07/25 09:56 JUAN M (Rec: 06/07/25 10:03 JUAN M [id number]) Subjective/History History History Per H&P: Mr. Richards was recently in the hospital proximately 05/29/2025. Noted at this time of having left chest wall pain which is still present. Patient also noted with a hemoglobin A1c of 12.5. Patient remained with normal troponins at that time and was released.. The patient has been working to get his insurance to improve a cardiac catheterization. Patient has continued with this left chest wall pain.. Also noting that he has significant peripheral neuropathy to light touch the pain is 8 out of 10. Patient has been a smoker since he has been a teenager has slowed down over the last week though. Noting that his weight approximately 2 years ago was up to 342 pounds he is now 280. Last hemoglobin A1c was 12.5. Patient does take a large amount of metformin also on Lantus, he is on an anticholesterol medication his last lipids actually were very good though.. For the left-sided chest wall pain there is no known cause.. 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 Subjective Subjective PLOF: IND without AD. Pt still drives. No falls in past 30 days. HOME: Lives with his girlfriend and 2 children. Pt lives in a 2-story home. Pt avoids the stair steps. 2 ADONIS with HRs. ASSIST: Girlfriend able to provide 24/7 assistance. New diagnosis of No cancer in past 12 months? [facility] How much help from another person do you currently need... Turning from your None back to your side while in a flat bed without using bedrails? Moving from lying on None back to sitting on the side of a flat bed without using bedrails? Moving to and from a None bed to a chair ( including a wheelchair)? Standing up from a None chair using your arms? (e.g., wheelchair, bedside chair) Walking in hospital None room? Climbing 3-5 steps A little with a railing? Mobility Score 23 Mobility Level [facility] Mobility Walk 25 feet or more Mobility Calculator Rehab PT IP Eval Objective Appearance Patient Behavior Appropriate,Cooperative Patient Orientation Person,Place Difficulty following none instructions Speech Pattern Clear Ambulation Patient Able to Yes Ambulate Balance Ability to Arise Able, uses arms to help Sitting Balance Steady, safe Standing Balance Steady, wide stance Dynamic Sitting Good Balance Ability Dynamic Standing Good Balance Ability Transfers Bed Transfer Ability Independent Chair Transfer Independent Ability Sit to Stand Bed Independent Transfer Ability Rehab PT IP prob,goals,plan Problems Date of Evaluation: 06/07/25 Rehab Potential Rehab Potential Innapropriate for Skilled Therapy Discharge Plan PT Discharge Plan Pt most appropriate to d/c home when deemed medically necessary d/t current level of mobility, home set-up, and family support. Pt not appropriate for skilled acute care PT at this time d/t pt?s mobility being at baseline. Eval Complexity Eval Charge Codes 72245 - Moderate Complexity PHYSICIAN CERTIFICATION: I certify the specified therapy services for Preet Richards are required, authorized, and reviewed every 30 days.
--- NOTE | 2025-06-07 10:18 | SW/DCPLANNER ---
PTOT stated patient as independent, no needs at this time.
[2025-06-07 10:20] LABS: Magnesium 2.0 mg/dl (1.6-2.3)
[2025-06-07] MEDS: FLUTICASONE/UMECLIDIN/VILANTER 100/62.5/25MCG INHALER 1 PUFF IH (10:22)
[2025-06-07 11:02] LABS: POC Glucose,Bedside 193 (70-110)
[2025-06-07] MEDS: 0.9 % SODIUM CHLORIDE 500 ML 25 ML IV (11:59)
[2025-06-07] MEDS: MIDAZOLAM HCL 1MG/ML 5ML VIAL 1 MG IV (12:00)
[2025-06-07] MEDS: VERAPAMIL 2.5MG/ML 2ML VIAL 2.5 MG IV (12:01)
[2025-06-07] MEDS: HEPARIN 1,000 UNITS/ML 10ML VIAL (CATH LAB) 5000 UNIT IV (12:01)
[2025-06-07] MEDS: FENTANYL 100MCG/2ML VIAL 50 MCG IV (12:01)
[2025-06-07] MEDS: NITROGLYCERIN 800MCG/8ML SYR (CATH LAB) 800 MCG IA (12:01)
[2025-06-07] MEDS: HEPARIN 1,000 UNITS/500ML NS (CATH LAB) 3000 UNIT IV (12:01)
--- NOTE | 2025-06-07 12:10 | HMH.PHAINT1 ---
Pharmacy Intervention Comments: MEDICATION RECONCILIATION COMPLETED ON PATIENT USING EXTERNAL FILL HISTORY FROM PHARMACY AND DISCHARGE SUMMARY FROM PREVIOUS ADMISSION. -CHERYL CANAS, DELIAD
--- NOTE | 2025-06-07 12:13 | SUR.PHASEII ---
patient recovered on table, taken straight from lab to 2nd floor.
--- NOTE | 2025-06-07 12:58 | P.DS_ITS ---
General Admission date:: 06/07/25 Discharge date: 06/07/25 HPI HPI HPI: Mr. Richards was recently in the hospital proximately 05/29/2025. Noted at this time of having left chest wall pain which is still present. Patient also noted with a hemoglobin A1c of 12.5. Patient remained with normal troponins at that time and was released.. The patient has been working to get his insurance to improve a cardiac catheterization. Patient has continued with this left chest wall pain.. Also noting that he has significant peripheral neuropathy to light touch the pain is 8 out of 10. Patient has been a smoker since he has been a teenager has slowed down over the last week though. Noting that his weight approximately 2 years ago was up to 342 pounds he is now 280. Last hemoglobin A1c was 12.5. Patient does take a large amount of metformin also on Lantus, he is on an anticholesterol medication his last lipids actually were very good though.. For the left-sided chest wall pain there is no known cause.. 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 , Hospital Course Hospital Course Hospital Course: Mr. Richards is a 49-year-old male who came in via the emergency room with complaints of chest pain. He has a significant medical history of tobacco use disorder, obesity, COPD, diabetes mellitus, hypertension, high cholesterol, hide triglycerides. He complained of sharp left-sided chest pain, tender to the touch, and shortness of breath. He recently saw cardiology, and was told he needed a heart cath but has not got his insurance to approve it. He was given aspirin. He it was decided he should be admitted to the hospital for further cardiology workup and heart cath. Workup in the emergency department included EKG, troponin, chest x-ray, D-dimer, CBC, CMP. Chest x-ray unremarkable, EKG without STEMI or acute changes, normal sinus rhythm. Laboratory results show no leukocytosis, no kidney dysfunction, no anemia, D-dimer is negative, troponins are negative. Glucose is elevated at 323 on admission, acetone level was also negative. #Unstable angina #Obesity ? Patient was taken for left heart cath today. Recommendation of medical management and better control of diabetes. A1c over 12. The patient did not receive stents, due to poorly controlled diabetes and not on adequate medical management, in addition he continues to smoke. He is on statin therapy with a goal of less than 55, LDL 05/29/2025 45.6. Patient currently taking rosuvastatin 20 mg daily. Continue at discharge. ?Triglycerides extremely high at that time, 742. Patient to be started on Vascepa 2 g twice daily with meals. ?Discussed the importance of medication compliance and following up with cardiology outpatient. ?Patient being discharged with Ranexa 500 mg twice daily for better control of angina. Patient taking metoprolol 25 mg daily and 81 mg aspirin daily. ?Close outpatient follow-up in the office with cardiology in the next 1 to 2 weeks. ?Patient had echo this morning, normal biventricular systolic function, LVEF is 55%. Mild PI. #Diabetes mellitus ? Patient currently taking insulin glargine 50 units subcu daily and metformin 500 mg twice daily. Discussed with patient to continue medication regimen for diabetes, close follow-up with PCP for adjustments. #Tobacco use disorder ? Patient states he has been smoking since a teenager, he has cut back on smoking to approximately half pack a day. Discussed the need for smoking cessation #Obesity ?Patient has had weight loss from 348 pounds, to current weight of 229 pounds. Total time spent on discharge 35 minutes in counseling, documentation, chart review, and direct care with patient. Exam Data for Last 24 hours Vital signs and Labs for Last 24 Hours: Temp Pulse Resp BP Pulse Ox O2 Del Method O2 Flow Rate 98.1 F 67 18 123/74 99 Room Air 2 06/07/25 08:00 06/07/25 12:15 06/07/25 12:15 06/07/25 12:15 06/07/25 12:15 06/07/25 12:15 06/07/25 08:00 Laboratory Results - last 24 hr 06/06/25 22:26: WBC 10.0, RBC 4.14 L, Hgb 13.5 L, Hct 38.3 L, MCV 92.5, MCH 32.6 H, MCHC 35.2, RDW 12.5, Plt Count 167, MPV 9.8, Neut % (Auto) 46.0, Lymph % (Auto) 41.7, [place] % (Auto) 9.2, Eos % (Auto) 2.2, Baso % (Auto) 0.6, Neut # (Auto) 4.6, Lymph # (Auto) 4.2, [place] # (Auto) 0.9, Eos # (Auto) 0.2, Baso # (Auto) 0.1, D-Dimer < 0.25, Sodium 133 L, Potassium 3.5, Chloride 98, Carbon Dioxide 18 L, Anion Gap 20.5 H, BUN 11, Creatinine 0.60 L, Estimated Creat Clear 265, Estimated GFR 143, Est GFR ( Amer) 173, Glucose 323 H, Calcium 8.8, Total Bilirubin 0.4, AST 46, ALT 28, Alkaline Phosphatase 71, Troponin I < 0.01, Total Protein 7.2, Albumin 3.8, Globulin 3.4 H, Albumin/Globulin Ratio 1.1 06/07/25 00:44: VBG pH 7.38, VBG pCO2 39.7, VBG pO2 94.7 H, VBG HCO3 22.9 L, VBG Total CO2 24.1, VBG O2 Saturation 96.6 H, VBG Base Excess -2.2, VBG Lactic Acid 3.4 H 06/07/25 01:06: Acetone Level None detected 06/07/25 01:36: Magnesium 2.0, Troponin I < 0.01 06/07/25 05:05: POC Glucose 230 H 06/07/25 05:08: Sodium 135 L, Potassium 3.5, Chloride 101, Carbon Dioxide 23, Anion Gap 14.5, BUN 11, Creatinine 0.60 L, Estimated Creat Clear 216, Estimated GFR 143, Est GFR ( Amer) 173, Glucose 237 H D, Lactate 2.5 H, Calcium 7.9 L, Troponin I < 0.01 06/07/25 08:34: Lactate 2.0 06/07/25 10:51: POC Glucose 193 H I & O for Last 24 hours: Intake & Output 06/04/25 06/05/25 06/06/25 06/07/25 23:59 23:59 23:59 23:59 Weight 127.006 kg 103.873 kg Results Data Completed and Pending Labs on day of discharge: Labs from last 24 hours 06/07/25 06/07/25 06/07/25 10:51 08:34 05:08 WBC RBC Hgb Hct MCV MCH MCHC RDW Plt Count MPV Neut % (Auto) Lymph % (Auto) [place] % (Auto) Eos % (Auto) Baso % (Auto) Neut # (Auto) Lymph # (Auto) [place] # (Auto) Eos # (Auto) Baso # (Auto) D-Dimer VBG pH VBG pCO2 VBG pO2 VBG HCO3 VBG Total CO2 VBG O2 Saturation VBG Base Excess VBG Lactic Acid Sodium 135 L Potassium 3.5 Chloride 101 Carbon Dioxide 23 Anion Gap 14.5 BUN 11 Creatinine 0.60 L Estimated Creat Clear 216 Estimated GFR 143 Est GFR ( Amer) 173 Glucose 237 H D POC Glucose 193 H Lactate 2.0 2.5 H Calcium 7.9 L Magnesium Total Bilirubin AST ALT Alkaline Phosphatase Troponin I < 0.01 Total Protein Albumin Globulin Albumin/Globulin Ratio Acetone Level 06/07/25 06/07/25 06/07/25 05:05 01:36 01:06 WBC RBC Hgb Hct MCV MCH MCHC RDW Plt Count MPV Neut % (Auto) Lymph % (Auto) [place] % (Auto) Eos % (Auto) Baso % (Auto) Neut # (Auto) Lymph # (Auto) [place] # (Auto) Eos # (Auto) Baso # (Auto) D-Dimer VBG pH VBG pCO2 VBG pO2 VBG HCO3 VBG Total CO2 VBG O2 Saturation VBG Base Excess VBG Lactic Acid Sodium Potassium Chloride Carbon Dioxide Anion Gap BUN Creatinine Estimated Creat Clear Estimated GFR Est GFR ( Amer) Glucose POC Glucose 230 H Lactate Calcium Magnesium 2.0 Total Bilirubin AST ALT Alkaline Phosphatase Troponin I < 0.01 Total Protein Albumin Globulin Albumin/Globulin Ratio Acetone Level None detected 06/07/25 06/06/25 00:44 22:26 WBC 10.0 RBC 4.14 L Hgb 13.5 L Hct 38.3 L MCV 92.5 MCH 32.6 H MCHC 35.2 RDW 12.5 Plt Count 167 MPV 9.8 Neut % (Auto) 46.0 Lymph % (Auto) 41.7 [place] % (Auto) 9.2 Eos % (Auto) 2.2 Baso % (Auto) 0.6 Neut # (Auto) 4.6 Lymph # (Auto) 4.2 [place] # (Auto) 0.9 Eos # (Auto) 0.2 Baso # (Auto) 0.1 D-Dimer < 0.25 VBG pH 7.38 VBG pCO2 39.7 VBG pO2 94.7 H VBG HCO3 22.9 L VBG Total CO2 24.1 VBG O2 Saturation 96.6 H VBG Base Excess -2.2 VBG Lactic Acid 3.4 H Sodium 133 L Potassium 3.5 Chloride 98 Carbon Dioxide 18 L Anion Gap 20.5 H BUN 11 Creatinine 0.60 L Estimated Creat Clear 265 Estimated GFR 143 Est GFR ( Amer) 173 Glucose 323 H POC Glucose Lactate Calcium 8.8 Magnesium Total Bilirubin 0.4 AST 46 ALT 28 Alkaline Phosphatase 71 Troponin I < 0.01 Total Protein 7.2 Albumin 3.8 Globulin 3.4 H Albumin/Globulin Ratio 1.1 Acetone Level DS: Diagnosis Discharge Diagnosis (1) Chest pain: Status: Acute Code(s): R07.9 - Chest pain, unspecified Qualifiers: Chest pain type: other chest pain Qualified Code(s): R07.89 - Other chest pain (2) Unstable angina: Status: Acute Code(s): I20.0 - Unstable angina (3) Tobacco abuse: Status: Acute Code(s): Z72.0 - Tobacco use (4) Uncontrolled diabetes mellitus: Status: Acute Qualifiers: Diabetes mellitus type: type 2 Glycemic state: with hyperglycemia Qualified Code(s): E11.65 - Type 2 diabetes mellitus with hyperglycemia (5) Hyperlipidemia: Status: Acute Code(s): E78.5 - Hyperlipidemia, unspecified Qualifiers: Hyperlipidemia type: other hyperlipidemia Qualified Code(s): E78.49 - Other hyperlipidemia (6) Hypertension: Status: Acute Code(s): I10 - Essential (primary) hypertension Qualifiers: Hypertension type: primary hypertension Qualified Code(s): I10 - Essential (primary) hypertension (7) Obesity (BMI 30-39.9): Status: Acute Code(s): E66.9 - Obesity, unspecified Meds Home Medications and Allergies Home Medications ?Medication ?Instructions ?Recorded ?Confirmed ?Type blood sugar diagnostic (Blood #100 ea 10/27/24 5 Rx Glucose Test strips) blood-glucose meter (Blood Glucose #1 ea 10/27/2405/25 Rx Monitoring kit) lancets 26 gauge (Easy Touch #100 ea 10/27/24 06/07/25 Rx Lancets) blood-glucose,temperature logging operator,cont #1 ea 02/05/25 06/07/25 Rx (Dexcom G6 Director Of Early Childhood) pen needle, diabetic 31 gauge x #100 ea 02/12/2506/07 Rx 1/4 (Easy Comfort Pen [place]) blood-glucose sensor (Dexcom G6 #3 ea 04/27/25 Rx Sensor device) blood-glucose transmitter (Dexcom #1 ea 04/27/2506/07 Rx G6 Transmitter device) rosuvastatin 20 mg tablet 20 mg PO DAILY #30 tabs 04/1806/07/25 Rx insulin glargine 100 unit/mL (3 50 unit (0.5 mL) SQ DA PATRICIA #15 mL 06/03/25 06/07/25 Rx mL) subcutaneous pen (Lantus Solostar U-100 Insulin) metoprolol succinate 25 mg 25 mg PO DAILY #30 tabs 09/1806/07/25 Rx tablet,extended release 24 hr aspirin 81 mg tablet,delayed 81 mg PO DAILY 90 days #9 0 tabs 06/04/25 06/07/25 Rx release (Adult Aspirin Regimen) albuterol sulfate 90 mcg/actuation 1 puff inhalation Q IDP PRN 06/07/25 06/07/25 History aerosol inhaler Shortness Of Breath fluticasone fur. 100 mcg-umeclid 1 inh inhalation ELLA Y 06/07/25 06/07/25 History 62.5 mcg-vilant 25 mcg inhalat.powder (Trelegy Ellipta) icosapent ethyl 1 gram capsule 2 g (2 x 1 gram) PO BID #60 caps 06/07/25 Rx (Vascepa) metformin 500 mg tablet,extended 500 mg PO BID 5 06/07/25 History release 24 hr ranolazine 500 mg tablet,extended 500 mg PO BID 30 day s #60 tabs 06/07/25 Rx release,12 hr New Prescriptions to Start Prescriptions: icosapent ethyl [Vascepa] Jolanta Adam ranolazine Jolanta Adam Allergies Allergy/AdvReac Type Severity Reaction Status Date / Time hydrocodone AdvReac Abdominal Verified 06/03/25 10:32 Pain lisinopril AdvReac Nausea Verified 06/03/25 10:32 Discharge Plan Disposition Patient Disposition: Home, Self-Care Condition: Fair Follow up Plan Follow up with: Rasheed Adam PA [Physician Administrative Nursing Supervisor, Cardiology] - 06/24/25 11:15 am George Dixon MD [Staff Physician, Internal Medicine] - 06/14/25 8:30 am Prescriptions/Medication Reconciliation: New ranolazine 500 mg Tablet Extended Release 12 Hr 500 mg PO BID 30 Days Qty: 60 0RF icosapent ethyl [Vascepa] 1 gram capsule 2 g PO BID Qty: 60 0RF Continued (DME) blood-glucose meter [Blood Glucose Monitoring] Kit See Rx Instructions .ROUTE .MEDSUPPLY Qty: 1 0RF Rx Instructions: As directed (DME) Blood Glucose Test Strip See Rx Instructions .ROUTE .MEDSUPPLY Qty: 100 2RF Rx Instructions: As directed (DME) lancets [Easy Touch Lancets] 26 gauge misc See Rx Instructions .Route Qty: 100 3RF Rx Instructions: As directed insulin glargine [Lantus Solostar U-100 Insulin] 100 unit/mL (3 mL) insulin pen 50 unit SQ DAILY Qty: 15 2RF metoprolol succinate 25 mg tablet extended release 24 hr 25 mg PO DAILY Qty: 30 2RF (DME) Dexcom G6 Director Of Early Childhood Misc See Rx Instructions .Route Qty: 1 0RF Rx Instructions: As directed (DME) Dexcom G6 Transmitter Device See Rx Instructions .Route Qty: 1 2RF Rx Instructions: As directed (DME) Dexcom G6 Sensor Device See Rx Instructions .Route Qty: 3 2RF Rx Instructions: As directed (DME) pen needle, diabetic [Easy Comfort Pen [place]] 31 gauge x 1/4 needle See Rx Instructions .Route Qty: 100 0RF Rx Instructions: As directed aspirin [Adult Aspirin Regimen] 81 mg tablet,delayed release (DR/EC) 81 mg PO DAILY 90 Days Qty: 90 2RF metformin 500 mg tablet extended release 24 hr 500 mg PO BID Trelegy Ellipta 100-62.5-25 mcg blister with device 1 inh INHALATION DAILY albuterol sulfate 90 mcg/actuation HFA aerosol inhaler 1 puff inhalation QIDP PRN (Reason: Shortness Of Breath) rosuvastatin 20 mg tablet 20 mg PO DAILY Qty: 30 0RF Problem Reconciliation Problems Reviewed?: Yes Patient Discharge Instructions ACTIVITY: Continue current activity DIET: continue same diet Patient Instructions: Coronary Artery Disease, DI for Cardiac Catheterization, DI for Surgical Site Infection Print Language: Mongolian Providers Primary Care Provider: Provider,Referral Admit Provider: Ramy Flynn Attending Provider: Ramy Flynn
[2025-06-07] MEDS: IOPAMIDOL-370 (76%);100ML BOTTLE 70 ML IV (14:22)
[2025-06-07] MEDS: RANOLAZINE 500MG ER TABLET 500 MG PO (14:36)
--- NOTE | 2025-06-08 10:35 | SW/DCPLANNER ---
Spoke with patient on the phone. Patient stated that he is aware of his upcoming appointments. Patient stated that he was able to get his new medicine picked up from clinic pharmacy. Patient stated that he has no concerns or questions at this time. Jareth Munoz
== END 2025-06-07 16:08 | disposition home or self-care (01) ==
LOC: ER 22:39 → 2ND 06-07 02:34
PROVIDERS: Internal Medicine; Admitting Provider Student in an Organized Health Care Education/Training Program; Emergency Provider Student in an Organized Health Care Education/Training Program; Visit Provider Student in an Organized Health Care Education/Training Program
PROC: 4A023N7 Measurement of Cardiac Sampling and Pressure, Left Heart, Percutaneous Approach (ICD-10-PCS; CPT 93452; principal; 2025-06-07 10:40)
DX: I20.0 Unstable angina (principal); E11.65 Type 2 diabetes mellitus with hyperglycemia; I10 Essential (primary) hypertension; E66.9 Obesity, unspecified; E78.49 Other hyperlipidemia; E11.42 Type 2 diabetes mellitus with diabetic polyneuropathy; I44.0 Atrioventricular block, first degree; J44.9 Chronic obstructive pulmonary disease, unspecified; F17.210 Nicotine dependence, cigarettes, uncomplicated; Z68.31 Body mass index [BMI] 31.0-31.9, adult; Z88.8 Allergy status to other drugs, medicaments and biological substances; Z82.49 Family history of ischemic heart disease and other diseases of the circulatory system; Z88.5 Allergy status to narcotic agent; Z79.84 Long term (current) use of oral hypoglycemic drugs; Z79.4 Long term (current) use of insulin; Z79.899 Other long term (current) drug therapy; Z79.82 Long term (current) use of aspirin
CPT/HCPCS: 96361; 96374; 96375; 36415; 71045; 80048; 80053; 82009; 82803; 82962; 83605; 83735; 84484; 85025; 85378; 93005; 93306; 94640; 97162; 99152; C1725; C1769; G0378; J1200; J1644; J1885; J2003; J2250; J2270; J3010; J7040; J7120; Q9967

== ENCOUNTER 2025-08-28 13:03 | Emergency (ER) | payer BC, SELFPAY ==
[2025-08-28] VITALS (10 sets, daily range): BP systolic 114–142; BP diastolic 65–77; PULSE 82–121; RESP 16–20; TEMP 36.4–36.7; O2SAT 95–98; BMI 37.7
--- OUTSIDE RECORDS SUMMARY | 2025-08-28 13:26 | XMS_ITS | Data Portability ---
Author Organization [facility] Address [address] [place] [address] Assessment No assessment recorded. Plan of Treatment Reminders Order Date Submit Date Provider Last Modified By Organization Details Last Modified Time Details Appointments None recorded. Lab urinalysis , dipstick [address], [address], 4 16:28:58 HbA1c (hemoglobi n A1c), blood [address], [address], 4 16:28:59 Referral None recorded. Procedures None recorded. Surgeries None recorded. Imaging None recorded. Medication Orders None recorded. Patient TargetsNo targets recorded. Patient InstructionsNo instructions recorded. Reason for Referral None Reported. Results Created Date Observation Date Name Description Value Unit Range Abnormal Flag Note LastModifiedBy Organization Detail LastModifiedTime 06/29/2006/29/2024 urina lysis , dipst ick Leukocytes Negati ve Not Available [address], [address], 06/29/2024 12:46:55 06/29/20 24 06/29/2024 urina lysis , dipst ick Nitrite negati ve Not Available [address], [address], 06/29/2024 12:46:55 06/29/2006/29/2024 urina lysis , dipst ick Urobilinogen .2 Not Available [address], [address], 06/29/2024 12:46:55 06/29/20 24 06/29/2024 urina lysis , dipst ick Protein 30 Not Available [address], [address], 06/29/2024 12:46:55 06/29/20 24 06/29/2024 urina lysis , dipst ick pH 6.0 Not Available [address], [address], 06/29/2024 12:46:55 06/29/20 24 06/29/2024 urina lysis , dipst ick Blood Non-He molyze d: Trace Not Available [address], [address], 06/29/2024 12:46:55 06/29/20 24 06/29/2024 urina lysis , dipst ick Specific [place] 1.030 Not Available [address], [address], 06/29/2024 12:46:55 06/29/20 24 06/29/2024 urina lysis , dipst ick Ketone Negati ve Not Available [address], [address], 06/29/2024 12:46:55 06/29/20 24 06/29/2024 urina lysis , dipst ick Bilirubin Negati ve Not Available [address], [address], 06/29/2024 12:46:55 06/29/20 24 06/29/2024 urina lysis , dipst ick Glucose 500 Not Available [address], [address], 06/29/2024 12:46:55 06/29/20 24 06/29/2024 urina lysis , dipst ick Appearance Clear Not Available [address], [address], 06/29/2024 12:46:55 06/29/20 24 06/29/2024 urina lysis , dipst ick Color Yellow Not Available [address], [address], 06/29/2024 12:46:55 06/29/20 24 06/29/2024 HbA1c (hemo globi n A1c), blood HbA1c 10.4 Not Available [address], [address], 06/29/2024 12:46:56 Result Notes None recorded. Problems Name Problem SNOMED Code Status Onset Date Resolution Date Notes Provider Name and Address Organization Details Recorded Time Uncontrol led type 2 diabetes mellitus 907781223 Active [address] [facility] 2 22:24:15 Hypertens lissette disorder 91141780 Active 2019 Problem Code: I10; Problem Code Type: ICD-10; Not Available [facility] 2 22:24:15 Abnormal finding on evaluatio n procedure 265966472 Active 2019 Not Available [facility] 2 22:24:15 Finding of body mass index 952293425 Active 2019 Problem Code: Z68.41; Problem Code Type: ICD-10; Not Available [facility] 2 22:24:15 Tobacco dependenc e caused by cigarette s 509936271110 78501 Active 2019 Problem Code: F17.210; Problem Code Type: ICD-10; Not Available [facility] 2 22:24:15 Precordia l pain 77687470 Active 2019 Problem Code: R07.2; Problem Code Type: ICD-10; Not Available [facility] 2 22:24:15 Problem Notes None recorded. [...] Updated DateTime 4 180.34 cm 39.4 kg/m2 110772. 49 g 98.4 [degF] 97 /min 94 % 94 % 138/83 mm[Hg] [facility] [employer] 4 16:13:04 Social History Question Answer Notes LastModified by Organizat ion Details LastModified Time Tobacco Smoking Status Current Every Day Smoker SocialHistor yQuestion: 'Tobacco/Alc ohol/Supplem ents'; SocialHistor yResponse: 'Current Everyday Smoker'; Not Available [facility] 07/31/2022 22:56:29 Is Your Home Air Conditioned? [...] (Food, seasonal, environmental ) Y COPD Y Diabetes Y Obesity Y Past Encounters Encounter ID Performer Location Encounter Start Date Encounter Closed Date Diagnosis/Indication Diagnosis SNOMED-CT Code Diagnosis ICD10 Code Diagnosis IMO Codes Diagnosis Note [id number] Glory Stover APRN [address] [address] 06/29/2024 15:43:40 06/29/2024 16:29:39 [employer] license medical examination 023887888 Z02.4 Failed due to A1c 10.4 today. Also has glucose and protein in his urine. Federal guidelines for diabetic drivers reviewed with pt today. He was encouraged to return to his PCP to work on improving Diabetic control. 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 He has DM2, HTN, and COPD. Previous records from PCP reviewed. Glory Stover APRN [address] [place], [address], [facility] [facility] 06/29/2024 17:42:54
--- OUTSIDE RECORDS SUMMARY | 2025-08-28 13:26 | XMS_ITS | Clinical Summary ---
Author Organization [facility] Address [address] [place] [address] Care Team Providers Care Conductor And Engineer Name Role Phone Glory Stover APRN Primary Care Provider [phone] Allergies Active Allergy Reactions Criticality Noted Date Comments Glipizide GI Intolerance Low 10/31/2020 Medications metFORMIN (GLUCOPHAGE) 1000 MG tablet Take 1,000 mg by mouth 2 (Two) Times a Day With Meals. Active Liraglutide (VICTOZA SC) Inject 1.8 mg under the skin into the appropriate area as directed Daily. Active atorvastatin (LIPITOR) 40 MG tablet Take 40 mg by mouth Daily. Active aspirin 81 MG EC tablet Take 81 mg by mouth Daily. Active Ertugliflozin L-PyroglutamicA c (Steglatro) 15 MG tablet Take 15 mg by mouth Every Morning. Active losartan (COZAAR) 50 MG tablet Take 50 mg by mouth Daily. Active ibuprofen (ADVIL,MOTRIN) 800 MG tablet Take 800 mg by mouth Every 8 (Eight) Hours As Needed for Mild Pain . Active acetaminophen (TYLENOL) 500 MG tablet Take 500 mg by mouth Every 6 (Six) Hours As Needed for Mild Pain . Active Active Problems Problem Noted Date Diagnosed Date PVD (peripheral vascular disease) with claudicat ion 10/31/2020 Precordial pain 10/31/2020 Mixed hyperlipidemia 10/31/2020 Essential hypertension 10/31/2020 Family History Medical History Relation Name Comments Heart disease Father Lung cancer Father Diabetes type II Mother Heart disease Mother Kidney failure Mother Relation Name Status Comments Brother Father Mother Social History Tobacco Use Types Packs/Day Years Used Date Smoking Tobacco: Every Day Cigarettes Smokeless Tobacco: Current Snuff Alcohol Use Standard Drinks/Week Comments Yes 0 (1 standard drink = 0.6 oz pur e alcohol) occasional Abuse Screen Answer Date Recorded Unsafe at Home or Work/School Not on file Feels Threatened by Someone? Not on file 10/2023 Does Anyone Keep You from Co ntacting Others or Doint Things Outside the Home? Not on file 09/05/2023 Physical Sign of Abuse Present Not on file 1 Housing Stability Answer Date Recorded Current Living Arrangements Not on file 08/25 Potentially Unsafe Housing Conditions Not on karina e 09/05/2023 Family and Community Support Answer Anant e Recorded Help with Day-to-Day Activities Not on file 09/05/2023 Lonely or Isolated Not on file 09/05/2023 Employment Answer Date Recorded Do you want help finding or keeping work or a dejah b? Not on file 09/05/2023 Disabilities Answer Date Recorded Concentrating, Remembering, or Making Decisions Difficulty Not on file 09/05/2023 Doing Errands Independently Difficulty Not on fi le 09/05/2023 Education Answer Date Recorded Help with school or training? Not on file Preferred Language Not on file 09/05/2023 Sex and Gender Information Value Date Recorded Sex Assigned at Not on file Legal Sex Male 1:14 PM EST Gender Identity Not on file Sexual Orientation Not on file Last Filed Vital Signs Vital Sign Reading Time Taken Comments Blood Pressure 120/78 10/31/2020 2:04 PM EST Pulse 85 10/31/2020 2:04 PM EST Temperature 35.6 C (96.1 F) 10/31/2020 2:04 PM EST Respiratory Rate - - Oxygen Saturation 97% 10/31/2020 2:04 PM EST Inhaled Oxygen Concentration - - Weight 145 kg (320 lb) 10/31/2020 2:04 PM EST Height 180.3 cm (5' 11 ) 10/31/2020 2:04 PM EST Body Mass Index 44.63 10/31/2020 2:04 PM EST Plan of Treatment Health Maintenance Due Date Last Done Comments LIPID PANEL 1974 TDAP/TD VACCINES (1 - Tdap) 1993 COLOGUARD 2019 COLON CANCER SCREENING 5 YEAR SIGMOIDOSCOPY 2019 COLONOSCOPY 2019 [address] CANCER SCREENING 2019 CT COLONOGRAPHY 2019 FECAL OCCULT BLOOD TEST 2019 FIT Testing (1 year) 2019 ANNUAL PHYSICAL 10/31/2020 HEPATITIS C SCREENING 10/31/2020 Pneumococcal Vaccine 50+ (1 of 1 - PCV) 2024 ZOSTER VACCINE (1 of 2) 2024 INFLUENZA VACCINE 06/25/2025 Insurance [employer] Care Teams Conductor And Engineer Relationship Specialty Start Date End Date Glory Stover APRN [address] [place] [address] PCP - General Nurse Practitioner 10/31/20
--- NOTE | 2025-08-28 13:29 | XR_ITS ---
PROCEDURE INFORMATION: Exam: XR Right Femur Exam date and time: 08/28/2025 1:39 PM Age: 49 years old Clinical indication: Injury or trauma; Fall; Other: Pain; Additional info: Fall, leg pain TECHNIQUE: Imaging protocol: Radiologic exam of the right femur. Views: 2 views. COMPARISON: CR XR KNEE RT 3V 08/28/2025 1:39 PM FINDINGS: Bones/joints: There is a nondisplaced fracture of the proximal fibular metaphysis. No acute femoral fracture. Soft tissues: Unremarkable. IMPRESSION: Negative exam of the right femur.
--- NOTE | 2025-08-28 13:29 | XR_ITS ---
PROCEDURE INFORMATION: Exam: XR Right Knee Exam date and time: 08/28/2025 1:39 PM Age: 49 years old Clinical indication: Injury or trauma; Fall; Other: Pain; Additional info: Fall, knee pain TECHNIQUE: Imaging protocol: Radiologic exam of the right knee. Views: 3 views. COMPARISON: CR XR FEMUR RT 2V 08/28/2025 1:39 PM FINDINGS: Bones/joints: There is a nondisplaced fracture of the proximal fibular metaphysis. No joint effusion. Soft tissues: Unremarkable. IMPRESSION: Nondisplaced fracture of the proximal fibular metaphysis.
--- NOTE | 2025-08-28 13:29 | CT_ITS ---
PROCEDURE INFORMATION: Exam: CT Chest Without Contrast; Diagnostic Exam date and time: 08/28/2025 2:16 PM Age: 49 years old Clinical indication: Injury or trauma; Fall; Other: Pain; Additional info: Eval for left sided rib fractures TECHNIQUE: Imaging protocol: Diagnostic computed tomography of the chest without contrast. Radiation optimization: All CT scans at this facility use at least one of these dose optimization techniques: automated exposure control; mA and/or kV adjustment per patient size (includes targeted exams where dose is matched to clinical indication); or iterative reconstruction. COMPARISON: CT ANGIO CHEST PE PROTOCOL 05/28/2025 10:13 PM FINDINGS: Lungs: Unremarkable. No consolidation. No masses. Pleural spaces: Unremarkable. No pneumothorax. No pleural effusion. Heart: Unremarkable. No cardiomegaly. No pericardial effusion. Coronary arteries: There are mild atherosclerotic calcifications of the coronary arteries. Lymph nodes: No enlarged lymph nodes. Vasculature: The aorta is unremarkable. No aneurysm. Pulmonary arteries are unremarkable. Pancreas: Moderate diffuse atrophy of the pancreas. The pancreatic duct is normal in size. Spleen: There are calcified splenic granulomas. Adrenal glands: The adrenal glands are unremarkable. Intraperitoneal space: Visible upper abdomen otherwise unremarkable. Bones/joints: Nondisplaced single fractures at the anterior aspects of the left 3rd, 4th, 5th, 6th, 8th and 9th ribs. Soft tissues: The remaining soft tissues are unremarkable. IMPRESSION: 1. Nondisplaced single fractures at the anterior aspects of the left 3rd, 4th, 5th, 6th, 8th and 9th ribs. 2. Otherwise unremarkable.
--- NOTE | 2025-08-28 13:29 | XR_ITS ---
PROCEDURE INFORMATION: Exam: XR Right Tibia and Fibula Exam date and time: 08/28/2025 1:39 PM Age: 49 years old Clinical indication: Injury or trauma; Fall; Other: Pain; Additional info: Right tib fib pain TECHNIQUE: Imaging protocol: Radiologic exam of the right tibia and fibula. Views: 2 views. COMPARISON: CR XR KNEE RT 3V 08/28/2025 1:39 PM FINDINGS: Bones/joints: There is a nondisplaced fracture of the proximal fibular metaphysis. Soft tissues: Small soft tissue calcification at the level of the mid tibial diaphysis. IMPRESSION: Nondisplaced fracture of the proximal fibular metaphysis.
--- NOTE | 2025-08-28 13:29 | XR_ITS ---
PROCEDURE INFORMATION: Exam: XR Pelvis Exam date and time: 08/28/2025 1:39 PM Age: 49 years old Clinical indication: Injury or trauma; Fall; Other: Pain TECHNIQUE: Imaging protocol: Radiologic exam of the pelvis. Views: 1 or 2 view. COMPARISON: CR XR FEMUR RT 2V 08/28/2025 1:39 PM FINDINGS: Bones/joints: Unremarkable. No acute fracture. Soft tissues: Unremarkable. IMPRESSION: No acute findings.
[2025-08-28] MEDS: KETOROLAC 15MG/ML VIAL 15 MG IV (14:00)
[2025-08-28] MEDS: ONDANSETRON 4MG/2ML VIAL 4 MG IV (14:00)
[2025-08-28] MEDS: ACETAMINOPHEN 500MG TAB 1000 MG PO (14:00)
[2025-08-28] MEDS: METHOCARBAMOL 500MG TABLET 1500 MG PO (14:00)
[2025-08-28] MEDS: HYDROMORPHONE 2MG/ML SYRINGE 1 MG IV (14:08)
[2025-08-28 14:15] LABS: Albumin Level 4.1 g/dl (3.5-5.0); Chloride 104 mmol/L (98-107); Potassium 3.7 mmoL/L (3.5-5.1); Sodium 136 mmol/L (136-145)
[2025-08-28 14:17] LABS: Hematocrit 40.7 % (42.0-52.0); Hemoglobin 14.3 g/dL (14.1-18.0); Immature Granulocytes % 0.5 %; Mean Corpuscular HGB Conc 35.1 g/dL (31.8-35.4); Mean Corpuscular Hemoglobin 31.6 pg (27.0-31.2); Mean Corpuscular Volume 90.0 fl (80-94); Nucleated Red Blood Cells % 0 %; Platelet Count 185 K/mm3 (142-424); Red Blood Count 4.52 M/mm3 (4.60-6.20); Red Cell Distribution Width-SD 38.9 fL; White Blood Count 8.6 K/mm3 (4.8-10.8)
[2025-08-28 14:18] LABS: Alanine Aminotransferase 24 U/L (12-78); Albumin/Globulin Ratio 1.2 (1.1-1.8); Alkaline Phosphatase 96 U/L (38-126); Anion Gap 19.7 mEq/L (5-15); Aspartate Amino Transferase 21 U/L (17-59); Bilirubin,Total 0.2 mg/dl (0.2-1.3); Blood Urea Nitrogen 5 mg/dl (9-20); Carbon Dioxide 16 mmol/L (22.0-30.0); Creatinine Clearance Estimated 225 mL/min (50-200); Creatinine,Serum 0.70 mg/dl (0.66-1.25); Estimated Glomerular Filt Rate 119 ml/min (>60); GFR (African American) 144 ML/MIN (>60); Globulin 3.5 g/dL (1.3-3.2); Total Protein,Serum 7.6 g/dl (6.3-8.2)
[2025-08-28 14:19] LABS: Calcium 9.4 mg/dl (8.4-10.2); Glucose 320 mg/dl (74-100)
[2025-08-28 14:24] LABS: INR 1.04 (0.9-1.1); Prothrombin Time 11.5 seconds (10.1-12.5)
[2025-08-28] MEDS: diazePAM 10MG/2ML SYRINGE 5 MG IV (14:36)
[2025-08-28] MEDS: LACTATED RINGERS 1000ML 1,000 ML 999 ML IV (14:36)
--- NOTE | 2025-08-28 15:54 | ED_ITS ---
Discharge Plan Disposition Patient Disposition: Left Against Medical Advice Prescriptions Prescriptions: No Action (DME) blood-glucose meter [Blood Glucose Monitoring] Kit See Rx Instructions .ROUTE .MEDSUPPLY Qty: 1 0RF Rx Instructions: As directed (DME) Blood Glucose Test Strip See Rx Instructions .ROUTE .MEDSUPPLY Qty: 100 2RF Rx Instructions: As directed (DME) lancets [Easy Touch Lancets] 26 gauge misc See Rx Instructions .Route Qty: 100 3RF Rx Instructions: As directed rosuvastatin 20 mg tablet 20 mg PO DAILY Qty: 30 3RF (DME) Dexcom G6 Clinical Physician Assistant Misc See Rx Instructions .Route Qty: 1 0RF Rx Instructions: As directed metformin 500 mg tablet extended release 24 hr 1,000 mg PO BID 90 Days Qty: 360 2RF insulin glargine [Lantus Solostar U-100 Insulin] 100 unit/mL (3 mL) insulin pen 60 unit SQ DAILY Qty: 15 2RF (DME) Dexcom G6 Transmitter Device See Rx Instructions .Route Qty: 1 2RF Rx Instructions: As directed (DME) Dexcom G6 Sensor Device See Rx Instructions .Route Qty: 3 2RF Rx Instructions: As directed aspirin [Adult Aspirin Regimen] 81 mg tablet,delayed release (DR/EC) 81 mg PO DAILY 90 Days Qty: 90 2RF Ozempic 0.25 mg or 0.5 mg (2 mg/3 mL) pen injector 0.25 mg SQ WEEKLY Qty: 3 2RF Rx Instructions: for 4 weeks metoprolol succinate 25 mg tablet extended release 24 hr 25 mg PO DAILY Qty: 30 2RF ranolazine 500 mg tablet extended release 12 hr 500 mg PO BID 30 Days Qty: 60 0RF icosapent ethyl [Vascepa] 1 gram capsule 2 g PO BID Qty: 60 0RF (DME) pen needle, diabetic 31 gauge x 3/16 needle See Rx Instructions .ROUTE .COMPLEX Qty: 100 0RF Dose Instruction: DIRECTED Rx Instructions: DIRECTED Trelegy Ellipta 100-62.5-25 mcg blister with device 1 inh INHALATION DAILY albuterol sulfate 90 mcg/actuation HFA aerosol inhaler 1 puff inhalation QIDP PRN (Reason: Shortness Of Breath) Referrals Follow up/Referrals: Flory Cruz APRN [Primary Care Provider, Family Practice] - See instructions Larry Garcia DO [Staff Physician, Orthopedics] - See instructions Clinical Impressions Clinical Impression: Multiple fractures of ribs, Closed fracture of proximal end of fibula Print Language Print Language: Swedish Discharge ED Provider: Rlaph Seals General Adult HPI <Ralph Seals DO - Last Filed: 08/28/25 16:24> General Chief complaint: Fall Stated complaint: AO Fall 08/27/25 Pain in R leg/L Rib Time Seen by Provider: 08/28/25 13:18 Mode of Arrival: Ambulatory Source of Information: Patient Description of Symptoms (Recalled from ER Triage Doc. by RN): Reports standing in his kitchen around midnight holding his beer when he went to turn around and fell onto his face on the kitchen floor. States that he is having extreme pain in his right leg and left ribs. Denies LOC. History of Present Illness HPI narrative: This is a 49-year-old male patient, with past medical history of hypertension, hyperlipidemia, CAD, COPD, tobacco abuse, and alcohol abuse, who presented to the emergency department today for evaluation of traumatic injuries after a fall last night. Patient states that he was in his kitchen and while turning around he twisted his right knee and subsequently fell to the ground. On the way down to the ground that he impacted his left rib cage against the counter and then impacted his right knee directly against the ground. Since that time he has had significant knee pain and difficulty with weightbearing secondary to this pain. He has also had significant pain over the left rib cage that is causing a sensation of shortness of breath limited by pain. He did not hit his head and did not lose consciousness. Related Data Home Medications ?Medication ?Instructions ?Recorded ?Confirmed albuterol sulfate 90 mcg/actuation 1 puff inhalation Q IDP PRN 06/07/25 06/24/25 aerosol inhaler Shortness Of Breath fluticasone fur. 100 mcg-umeclid 1 inh inhalation ELLA Y 06/07/25 06/24/25 62.5 mcg-vilant 25 mcg inhalat.powder (Trelegy Ellipta) Previous Rx's ?Medication ?Instructions ?Recorded blood sugar diagnostic (Blood #100 ea 10/27/24 Glucose Test strips) blood-glucose meter (Blood Glucose #1 ea 10/27/24 Monitoring kit) lancets 26 gauge (Easy Touch #100 ea 10/27/24 Lancets) blood-glucose,shop tech,cont #1 ea 02/05/25 (Dexcom G6 Clinical Physician Assistant) blood-glucose sensor (Dexcom G6 #3 ea 04/27/25 Sensor device) blood-glucose transmitter (Dexcom #1 ea 04/27/25 G6 Transmitter device) aspirin 81 mg tablet,delayed 81 mg PO DAILY 90 days #9 0 tabs 06/04/25 release (Adult Aspirin Regimen) insulin glargine 100 unit/mL (3 60 unit (0.6 mL) SQ DA PATRICIA #15 mL 06/16/25 mL) subcutaneous pen (Lantus Solostar U-100 Insulin) metformin 500 mg tablet,extended 1,000 mg (2 x 500 mg) PO BID 90 06/16/25 release 24 hr days #360 tabs semaglutide 0.25 mg or 0.5 mg (2 0.25 mg (0.368 mL) SQ WEEKLY #3 mL 06/16/25 mg/3 mL) subcutaneous pen injector (Ozempic) rosuvastatin 20 mg tablet 20 mg PO DAILY #30 tabs 05/27 12/19 metoprolol succinate 25 mg 25 mg PO DAILY #30 tabs tablet,extended release 24 hr icosapent ethyl 1 gram capsule 2 g (2 x 1 gram) PO BID #60 caps 07/13/25 (Vascepa) pen needle, diabetic 31 gauge x #100 ea 07/13/2502/07 ranolazine 500 mg tablet,extended 500 mg PO BID 30 day s #60 tabs 07/13/25 release,12 hr Allergies Allergy/AdvReac Type Severity Reaction Status Date / Time hydrocodone AdvReac Abdominal Verified 06/24/25 10:58 Pain lisinopril AdvReac Nausea Verified 06/24/25 10:58 PFS <Ralph Seals DO - Last Filed: 08/28/25 16:24> [facility] Disclaimer: The information contained in this section may have been updated after the patient was seen, as this information can be updated by other users. Medical History (Updated 08/28/25 @ 17:10 by Rasheed Thomason MD) Coronary artery disease COPD (chronic obstructive pulmonary disease) Tobacco abuse Uncontrolled diabetes mellitus Left-sided chest wall pain Diabetic peripheral neuropathy Sinus tachycardia Dizziness SOB (shortness of breath) Abnormal ECG Chest pain Neck Pain Contact dermatitis Hypertension Hyperlipidemia Depression Anxiety Asthma Diabetes mellitus Upper respiratory infection, viral Exposure to COVID-19 virus Surgical History H/O vasectomy Family History Mother Diabetes Father Coronary artery disease Social History Smoking Status: Current every day smoker smoking status start date: 1989 smoked: 30 second hand exposure: Yes alcohol intake: current alcohol intake frequency: a few times a week counseling given: Yes counseling provided: provider counseling substance use type: denies use current occupational status: employed Travel in the last 8 weeks?: None household members: family housing: house Have you lived/traveled outside [place] in past 30 days?: No Contact w/someone who lives/traveled outside US past 30 days?: No Exposure to someone with infectious disease in past 14 days?: No Do you have a fever (greater than 100.4 F or 38 C)?: No Have you tested positive for COVID-19?: No Exposed to someone with COVID-19 in past 14 days?: No Do you have a sore throat?: No Do you have a cough?: No Do you have any weakness?: No Do you have any diarrhea?: No Are you experiencing any unusual bleeding?: No Do you have any muscle aches/pain?: No Do you have any abdominal pain?: No Are you experiencing loss of taste or smell?: No Other Medical History Have you received the Flu Vaccine for this season: No Have you received the Pneumonia Vaccine: No <Ralph Seals DO - Last Filed: 08/28/25 16:24> ROS Obtained: Yes Systems reviewed as appropriate & no additional complaints except as documented Physical Exam <DO Ashlyn Vargas Last Filed: 08/28/25 16:24> General General appearance: other (See MDM) Respiratory Respiratory exam: Present other (See MDM) Cardiovascular Cardiovascular exam: Present other (See MDM) Neurological Exam Neurological exam: Present other (See MDM) Medical Decision Making <DO Ashlyn Vargas Last Filed: 08/28/25 16:24> Medical Records Medical records reviewed: Yes I reviewed the patient's medical records. Screening: Per USPSTF and CDC recommendations, given the prevalence of disease in our region, it is our hospital?s policy to screen for HIV and viral Hepatitis for all patients aged 18 and over and those with ongoing risk factors. Miguel Inquiry Pt receiving controlled substance: No Miguel was queried for this patient: No Vital Signs: 08/28/25 13:12 08/28/25 13:24 08/28/25 13:31 Temperature 98.1 F Temperature Source Oral Pulse Rate 111 H 121 H Pulse Rate [Radial] 112 H Respiratory Rate 18 16 18 Blood Pressure 142/77 H 122/70 Blood Pressure [Right Arm] 142/77 H Blood Pressure Mean 90 87 Blood Pressure Mean [Right Arm] 98 Blood Pressure Source [Right Arm] Automatic Cuff Blood Pressure Position [Right Arm] Sitting 02 Sat by Pulse Oximetry 95 97 95 Oxygen Delivery Method Room Air 08/28/25 14:30 08/28/25 15:00 08/28/25 15:30 Temperature Temperature Source Pulse Rate 116 H 121 H 121 H Pulse Rate [Radial] Respiratory Rate Blood Pressure 121/65 126/67 136/71 Blood Pressure [Right Arm] Blood Pressure Mean Blood Pressure Mean [Right Arm] Blood Pressure Source [Right Arm] Blood Pressure Position [Right Arm] 02 Sat by Pulse Oximetry 95 95 96 Oxygen Delivery Method Room Air Room Air Room Air 08/28/25 16:00 08/28/25 16:30 Temperature Temperature Source Pulse Rate 105 H 111 H Pulse Rate [Radial] Respiratory Rate Blood Pressure 131/74 114/72 Blood Pressure [Right Arm] Blood Pressure Mean Blood Pressure Mean [Right Arm] Blood Pressure Source [Right Arm] Blood Pressure Position [Right Arm] 02 Sat by Pulse Oximetry 96 97 Oxygen Delivery Method Room Air Room Air Lab Data Lab Results 08/28/25 14:02: WBC 8.6, RBC 4.52 L, Hgb 14.3, Hct 40.7 L, MCV 90.0, MCH 31.6 H, MCHC 35.1, RDW 11.9, Plt Count 185, MPV 10.1, Neut % (Auto) 69.2, Lymph % (Auto) 19.3, Lea % (Auto) 8.5, Eos % (Auto) 1.9, Baso % (Auto) 0.6, Neut # (Auto) 6.0, Lymph # (Auto) 1.7, Lea # (Auto) 0.7, Eos # (Auto) 0.2, Baso # (Auto) 0.1, PT 11.5, INR 1.04, Sodium 136, Potassium 3.7, Chloride 104, Carbon Dioxide 16 L, A nion Gap 19.7 H, BUN 5 L, Creatinine 0.70, Estimated Creat Clear 225, Estimated GFR 119, Est GFR ( Amer) 144, Glucose 320 H, Calcium 9.4, Total Bilirubin 0.2, AST 21, ALT 24, Alkaline Phosphatase 96, Total Protein 7.6, Albumin 4.1, G lobulin 3.5 H, Albumin/Globulin Ratio 1.2 08/28/25 14:02 08/28/25 14:02 Orders (Tests/Meds): ED MEDICATIONS Generic Name Dose Route Start Last Admin Trade Name Freq PRN Reason Stop Dose Admin Diazepam 5 mg 08/28/25 14:32 08/28/25 14:36 Diazepam 10mg/2ml Syringe IV 5 mg Q5MINP PRN Administration Seizures Discontinued Medications Generic Name Dose Route Start Last Admin Trade Name Freq PRN Reason Stop Dose Admin Acetaminophen 1,000 mg 08/28/25 13:30 08/28/25 14:00 Acetaminophen 500mg Tab PO 08/28/25 13:31 1,000 mg ONCE ONE Administration Diazepam 5 mg 08/28/25 14:30 Diazepam 10mg/2ml Syringe IV 09/27/25 14:29 NEEDED PRN Seizures Hydromorphone HCl 1 mg 08/28/25 13:30 08/28/25 14:08 Hydromorphone 2mg/Ml Syringe IV 08/28/25 13:31 1 mg ONCE ONE Administration Lactated Ringer's 1,000 mls @ 999 mls/hr 08/28/25 14:29 08/28/25 14:36 Lactated Ringer's 1000 Ml Bag IV 08/28/25 15:29 999 mls/hr .Q1H1M ONE Administration Ketorolac Tromethamine 15 mg 08/28/25 13:30 08/28/25 14:00 Ketorolac 15mg/Ml Vial IV 08/28/25 13:31 15 mg ONCE ONE Administration Methocarbamol 1,500 mg 08/28/25 13:32 08/28/25 14:00 Methocarbamol 500mg Tablet PO 08/28/25 13:33 1,500 mg ONCE ONE Administration Ondansetron HCl 4 mg 08/28/25 13:30 08/28/25 14:00 Ondansetron 4mg/2ml Vial IV 08/28/25 13:31 4 mg ONCE ONE Administration ORDERS Category Date Time Status CT chest wo con Stat Cat Scan 08/28/25 13:29 Completed Femur XR right 2 views [XR femur RT 2V] Stat Exams 08/28/25 13:29 Completed Fibula/tibia XR right 2 views [XR tibia fibula RT 2V] Exams 08/28/25 13:29 Completed Stat Knee XR right 3 views [XR knee RT 3V] Stat Exams 08/28/25 13:29 Completed XR pelvis 1-2V Stat Exams 08/28/25 13:29 Completed CBC w/Auto Diff [Complete Blood Count Auto Diff] Stat Lab 08/28/25 14:02 Completed CMP [Comprehensive Metabolic Panel] Stat Lab 08/28/25 14:02 Completed PT INR [Prothrombin Time INR] Stat Lab 08/28/25 14:02 Completed Medical Decision Narrative: In summary, this a 49-year-old male patient who is presenting to the emergency department today for evaluation of left chest wall pain and right knee pain after twisting his right knee last night and subsequently falling and impacting his left rib cage against the counter and his right knee against the ground. The patient is quite comorbid and has a past medical history of hypertension, hyperlipidemia, diabetes, CAD, COPD, tobacco abuse, and alcohol abuse. On initial evaluation of the patient he appeared quite uncomfortable and was clutching his rib cage as she breathes. He is saturating well on room air and is hemodynamically stable and neurologically intact. On physical examination his breath sounds are normal bilaterally. He has no external evidence of head trauma. He has no tenderness of the C, T, or L-spine. No tenderness of the anterior abdominal wall. Pelvis is stable. He does have significant tenderness over the entirety of the left rib cage and he has exquisite tenderness of the right knee. There is no obvious deformity of the knee. He has normal sensation and motor function of the right lower extremity. Differential diagnosis includes tibial plateau fracture, fibular fracture, tibial fracture, hip fracture, femoral fracture, rib fractures, pulmonary contusion, among others. Workup was initiated with hematologic labs as well as x-rays of the right lower extremity and a CT scan of the chest without contrast to assess for rib fractures. I do not feel that the mechanism of his fall was severe enough to cause arterial injury that would necessitate workup with a CTA. Labs were personally interpreted by me and demonstrated no leukocytosis or actionable anemia. PT/INR is within normal limits. The patient is hyperglycemic with a glucose of 320 so we have administered a liter of lactated Ringer's. The patient is a heavy alcohol drinker and his CIWA score was 7 here in the emergency department so we administered 5 mg of Valium. We have also controlled his pain with 15 mg of Toradol, 1500 mg of Robaxin, and 1 mg of Dilaudid. We have treated prophylactically for nausea with 4 mg of Zofran. On repeat assessment the patient he is resting comfortably and is in no acute distress. His breathing has improved as his pain has improved. He is pulling 2500 mL on incentive spirometry. X-rays of the right lower extremity were personally interpreted by me and demonstrate a proximal fibular fracture just below the proximal fibular head. Official radiology read is in agreement. I have had an interactive discussion with the orthopedic surgeon on-call who agrees with our decision to place the patient in a short leg splint and have him nonweightbearing on crutches until follow-up in the clinic this upcoming week for further evaluation and management of this proximal fibular fracture. CT scan resulted and demonstrates rib fractures of ribs 3, 4, 5, 6, 8 and 9 on the left. This is a total of 6 rib fractures. Patient's rib injury grade score is 6 which necessitates admission to the hospital. I have informed the patient of this and he feels very strongly that he does not want to come to the hospital. I have discussed risk and benefits including the risk of worsening fractures, pneumothorax, pneumonia, and . Patient knowledges understanding of risk and benefits and would still like to be discharged home. And patient understands that he is going to have difficulty with nonweightbearing status in the setting of 6 rib fractures. He is requesting that we discharge him with a wheelchair. We are currently reaching out to [facility] to obtain a wheelchair. Case was handed off to the oncoming physician Dr. Thomason who will follow-up on access to a wheelchar and disposition the patient <Rasheed Thomason MD - Last Filed: 08/28/25 17:11> Vital Signs: 08/28/25 13:12 08/28/25 13:24 08/28/25 13:31 Temperature 98.1 F Temperature Source Oral Pulse Rate 111 H 121 H Pulse Rate [Radial] 112 H Respiratory Rate 18 16 18 Blood Pressure 142/77 H 122/70 Blood Pressure [Right Arm] 142/77 H Blood Pressure Mean 90 87 Blood Pressure Mean [Right Arm] 98 Blood Pressure Source [Right Arm] Automatic Cuff Blood Pressure Position [Right Arm] Sitting 02 Sat by Pulse Oximetry 95 97 95 Oxygen Delivery Method Room Air 08/28/25 14:30 08/28/25 15:00 08/28/25 15:30 Temperature Temperature Source Pulse Rate 116 H 121 H 121 H Pulse Rate [Radial] Respiratory Rate Blood Pressure 121/65 126/67 136/71 Blood Pressure [Right Arm] Blood Pressure Mean Blood Pressure Mean [Right Arm] Blood Pressure Source [Right Arm] Blood Pressure Position [Right Arm] 02 Sat by Pulse Oximetry 95 95 96 Oxygen Delivery Method Room Air Room Air Room Air 08/28/25 16:00 08/28/25 16:30 Temperature Temperature Source Pulse Rate 105 H 111 H Pulse Rate [Radial] Respiratory Rate Blood Pressure 131/74 114/72 Blood Pressure [Right Arm] Blood Pressure Mean Blood Pressure Mean [Right Arm] Blood Pressure Source [Right Arm] Blood Pressure Position [Right Arm] 02 Sat by Pulse Oximetry 96 97 Oxygen Delivery Method Room Air Room Air Lab Data Lab Results 08/28/25 14:02: WBC 8.6, RBC 4.52 L, Hgb 14.3, Hct 40.7 L, MCV 90.0, MCH 31.6 H, MCHC 35.1, RDW 11.9, Plt Count 185, MPV 10.1, Neut % (Auto) 69.2, Lymph % (Auto) 19.3, Lea % (Auto) 8.5, Eos % (Auto) 1.9, Baso % (Auto) 0.6, Neut # (Auto) 6.0, Lymph # (Auto) 1.7, Lea # (Auto) 0.7, Eos # (Auto) 0.2, Baso # (Auto) 0.1, PT 11.5, INR 1.04, Sodium 136, Potassium 3.7, Chloride 104, Carbon Dioxide 16 L, A nion Gap 19.7 H, BUN 5 L, Creatinine 0.70, Estimated Creat Clear 225, Estimated GFR 119, Est GFR ( Amer) 144, Glucose 320 H, Calcium 9.4, Total Bilirubin 0.2, AST 21, ALT 24, Alkaline Phosphatase 96, Total Protein 7.6, Albumin 4.1, G lobulin 3.5 H, Albumin/Globulin Ratio 1.2 Orders (Tests/Meds): ED MEDICATIONS Generic Name Dose Route Start Last Admin Trade Name Freq PRN Reason Stop Dose Admin Diazepam 5 mg 08/28/25 14:32 08/28/25 14:36 Diazepam 10mg/2ml Syringe IV 5 mg Q5MINP PRN Administration Seizures Discontinued Medications Generic Name Dose Route Start Last Admin Trade Name Freq PRN Reason Stop Dose Admin Acetaminophen 1,000 mg 08/28/25 13:30 08/28/25 14:00 Acetaminophen 500mg Tab PO 08/28/25 13:31 1,000 mg ONCE ONE Administration Diazepam 5 mg 08/28/25 14:30 Diazepam 10mg/2ml Syringe IV 09/27/25 14:29 NEEDED PRN Seizures Hydromorphone HCl 1 mg 08/28/25 13:30 08/28/25 14:08 Hydromorphone 2mg/Ml Syringe IV 08/28/25 13:31 1 mg ONCE ONE Administration Lactated Ringer's 1,000 mls @ 999 mls/hr 08/28/25 14:29 08/28/25 14:36 Lactated Ringer's 1000 Ml Bag IV 08/28/25 15:29 999 mls/hr .Q1H1M ONE Administration Ketorolac Tromethamine 15 mg 08/28/25 13:30 08/28/25 14:00 Ketorolac 15mg/Ml Vial IV 08/28/25 13:31 15 mg ONCE ONE Administration Methocarbamol 1,500 mg 08/28/25 13:32 08/28/25 14:00 Methocarbamol 500mg Tablet PO 08/28/25 13:33 1,500 mg ONCE ONE Administration Ondansetron HCl 4 mg 08/28/25 13:30 08/28/25 14:00 Ondansetron 4mg/2ml Vial IV 08/28/25 13:31 4 mg ONCE ONE Administration ORDERS Category Date Time Status CT chest wo con Stat Cat Scan 08/28/25 13:29 Completed Femur XR right 2 views [XR femur RT 2V] Stat Exams 08/28/25 13:29 Completed Fibula/tibia XR right 2 views [XR tibia fibula RT 2V] Exams 08/28/25 13:29 Completed Stat Knee XR right 3 views [XR knee RT 3V] Stat Exams 08/28/25 13:29 Completed XR pelvis 1-2V Stat Exams 08/28/25 13:29 Completed CBC w/Auto Diff [Complete Blood Count Auto Diff] Stat Lab 08/28/25 14:02 Completed CMP [Comprehensive Metabolic Panel] Stat Lab 08/28/25 14:02 Completed PT INR [Prothrombin Time INR] Stat Lab 08/28/25 14:02 Completed Medical Decision Narrative: In summary, this a 49-year-old male patient who is presenting to the emergency department today for evaluation of left chest wall pain and right knee pain after twisting his right knee last night and subsequently falling and impacting his left rib cage against the counter and his right knee against the ground. The patient is quite comorbid and has a past medical history of hypertension, hyperlipidemia, diabetes, CAD, COPD, tobacco abuse, and alcohol abuse. On initial evaluation of the patient he appeared quite uncomfortable and was clutching his rib cage as she breathes. He is saturating well on room air and is hemodynamically stable and neurologically intact. On physical examination his breath sounds are normal bilaterally. He has no external evidence of head trauma. He has no tenderness of the C, T, or L-spine. No tenderness of the anterior abdominal wall. Pelvis is stable. He does have significant tenderness over the entirety of the left rib cage and he has exquisite tenderness of the right knee. There is no obvious deformity of the knee. He has normal sensation and motor function of the right lower extremity. Differential diagnosis includes tibial plateau fracture, fibular fracture, tibial fracture, hip fracture, femoral fracture, rib fractures, pulmonary contusion, among others. Workup was initiated with hematologic labs as well as x-rays of the right lower extremity and a CT scan of the chest without contrast to assess for rib fractures. I do not feel that the mechanism of his fall was severe enough to cause arterial injury that would necessitate workup with a CTA. Labs were personally interpreted by me and demonstrated no leukocytosis or actionable anemia. PT/INR is within normal limits. The patient is hyperglycemic with a glucose of 320 so we have administered a liter of lactated Ringer's. The patient is a heavy alcohol drinker and his CIWA score was 7 here in the emergency department so we administered 5 mg of Valium. We have also controlled his pain with 15 mg of Toradol, 1500 mg of Robaxin, and 1 mg of Dilaudid. We have treated prophylactically for nausea with 4 mg of Zofran. On repeat assessment the patient he is resting comfortably and is in no acute distress. His breathing has improved as his pain has improved. He is pulling 2500 mL on incentive spirometry. X-rays of the right lower extremity were personally interpreted by me and demonstrate a proximal fibular fracture just below the proximal fibular head. Official radiology read is in agreement. I have had an interactive discussion with the orthopedic surgeon on-call who agrees with our decision to place the patient in a short leg splint and have him nonweightbearing on crutches until follow-up in the clinic this upcoming week for further evaluation and management of this proximal fibular fracture. CT scan resulted and demonstrates rib fractures of ribs 3, 4, 5, 6, 8 and 9 on the left. This is a total of 6 rib fractures. Patient's rib injury grade score is 6 which necessitates admission to the hospital. I have informed the patient of this and he feels very strongly that he does not want to come to the hospital. I have discussed risk and benefits including the risk of worsening fractures, pneumothorax, pneumonia, and . Patient knowledges understanding of risk and benefits and would still like to be discharged home. And patient understands that he is going to have difficulty with nonweightbearing status in the setting of 6 rib fractures. He is requesting that we discharge him with a wheelchair. We are currently reaching out to [facility] to obtain a wheelchair. Case was handed off to the oncoming physician Dr. Thomason who will follow-up on access to a wheelchar and disposition the patient Rasheed Thomason MD: At the time of handoff, patient was waiting for his wheelchair to arrive. Wheelchair did arrive and patient was appropriate positioned in it. I did discuss with him that he has multiple rib fractures as well as a fracture of his proximal fibula that will need follow-up with Dr. Garcia and to avoid weightbearing. I did state that with his many rib fractures as he is having he is at increased risk of developing pneumonias, becoming septic with increased morbidity and mortality. He again states that he does not want to be admitted and is willing to accept the risk and wants to leave AGAINST MEDICAL ADVICE. Patient was encouraged to use his incentive spirometer frequently, at least every 2 hours to help prevent pneumonias. Patient then left AGAINST MEDICAL ADVICE. Critical Care <Ralph Seals, - Last Filed: 08/28/25 16:24> Critical Care Time Critical Care Time: No
--- NOTE | 2025-08-28 16:27 | PC.NURSE ---
Called [facility] (formerly [facility]) and left message regarding wheelchair for patient.
--- NOTE | 2025-08-28 16:35 | PC.NURSE ---
[facility] called back, states they will bring wheelchair to the ER. notified.
== END 2025-08-28 17:25 | disposition left against medical advice (07) ==
PROVIDERS: Emergency Provider Student in an Organized Health Care Education/Training Program; PCP Nurse Practitioner Family
DX: S22.42XA Multiple fractures of ribs, left side, initial encounter for closed fracture (principal); S82.831A Other fracture of upper and lower end of right fibula, initial encounter for closed fracture; F10.90 Alcohol use, unspecified, uncomplicated; E11.65 Type 2 diabetes mellitus with hyperglycemia; F17.210 Nicotine dependence, cigarettes, uncomplicated; W01.198A Fall on same level from slipping, tripping and stumbling with subsequent striking against other object, initial encounter
CPT/HCPCS: 29515; 71250; 72170; 73552; 73562; 73590; 80053; 85025; 85610; 96361; 96374; 96375; 99285; J1171; J1885; J2405; J3360; J7120

== ENCOUNTER 2025-09-23 13:09 | Outpatient (CLI) | payer BC, SELFPAY ==
--- NOTE | 2025-09-23 13:12 | XR_ITS ---
FINAL REPORT CLINICAL HISTORY: right proximal fib fx, fall x 3 weeks ago COMPARISON: 08/28/2025 FINDINGS: RIGHT TIBIA FIBULA: There is a mildly comminuted fracture of the proximal fibula, with a small amount of callus present at the fracture site. The joint spaces are intact. There is a tiny metallic foreign body adjacent to the mid tibial diaphysis, also seen on the prior exam of 08/28/2025. IMPRESSION: Healing fracture of the proximal fibula as described. Reviewed, Interpreted and Dictated by Houston Mcghee MD Transcribed by Helen Powell Authenticated and [facility]
== END 2025-09-23 23:59 | disposition home or self-care (01) ==
LOC: RAD 13:09
PROVIDERS: PCP Nurse Practitioner Family; Visit Provider Physician Assistant
DX: S82.831D Other fracture of upper and lower end of right fibula, subsequent encounter for closed fracture with routine healing (principal)
CPT/HCPCS: 73590

== ENCOUNTER 2025-11-10 12:38 | Outpatient (CLI) | payer BC, SELFPAY ==
--- NOTE | 2025-11-10 12:43 | XR_ITS ---
FINAL REPORT CLINICAL HISTORY: right tib/fib fx COMPARISON: No prior exams submitted for comparison. FINDINGS: RIGHT TIBIA AND FIBULA AP and lateral views of the right tibia and fibula were obtained. There is a subacute, healing, comminuted fracture of the proximal fibular shaft. Tibia is intact. Joints are intact. However, the ankle joint in the medial malleolus are not well visualized. IMPRESSION: Healing, nondisplaced fracture of the proximal fibular shaft. Reviewed, Interpreted and Dictated by Yanna Alberto MD Transcribed by Tawanna Ziegler Authenticated and . [facility]
--- OUTSIDE RECORDS SUMMARY | 2025-11-10 13:25 | XMS_ITS | Clinical Summary ---
Author Organization [facility] Address [address] [place] [address] Care Team Providers Care Baccarat Manager Name Role Phone Glory Stover APRN Primary Care Provider [phone] Allergies Active Allergy Reactions Criticality Noted Date [...] INFLUENZA VACCINE 06/25/2025 [place] [id number] Care Teams Baccarat Manager Relationship Specialty Start Date End Date Glory Stover APRN [address] [place] [address] PCP - General Nurse Practitioner 10/31/20
== END 2025-11-10 23:59 | disposition home or self-care (01) ==
LOC: RAD 12:39
PROVIDERS: PCP Nurse Practitioner Family; Visit Provider Physician Assistant
DX: S82.831D Other fracture of upper and lower end of right fibula, subsequent encounter for closed fracture with routine healing (principal); X58.XXXD Exposure to other specified factors, subsequent encounter
CPT/HCPCS: 73590